=== PATIENT | female | born 1960 | race Caucasian/White ===

== ENCOUNTER 2019-11-27 09:33 | Outpatient (CLI) | payer BC, SELFPAY ==
--- NOTE | 2019-11-27 11:00 | NEURO_ITS ---
Patient Number: [id number] Impression: # Complains of right 4th and 5th finger numbness particularly during sleep. # No Carpal Tunnel Syndrome. # Mild slowing of ulnar nerve across the elbow. # Normal needle/EMG exam. # Clinical correlation recommended. Nerve Conduction Studies Anti Sensory Summary Table Stim Site NR Peak (ms) P-T Amp (?V) Site1 Site2 Delta-P (ms) Dist (cm) Tra (m/s) Left Median Anti Sensory (2-3nd Digit) Wrist 3.2 62.8 Wrist 2-3nd Digit 3.2 14.0 44 Wrist 3.2 60.0 Wrist 2-3nd Digit 3.2 14.0 44 Right Median Anti Sensory (2-3nd Digit) Wrist 3.0 47.8 Wrist 2-3nd Digit 3.0 14.0 47 Wrist 3.2 51.3 Wrist 2-3nd Digit 3.0 14.0 47 Left Radial Anti Sensory (Base 1st Digit) Wrist 2.0 25.6 Wrist Base 1st Digit 2.0 0.0 Right Radial Anti Sensory (Base 1st Digit) Wrist 2.0 23.7 Wrist Base 1st Digit 2.0 0.0 Left Ulnar Anti Sensory (5th Digit) Wrist 2.4 30.9 Wrist 5th Digit 2.4 14.0 58 Right Ulnar Anti Sensory (5th Digit) Wrist 2.5 43.9 Wrist 5th Digit 2.5 14.0 56 Motor Summary Table Stim Site NR Onset (ms) O-P Amp (mV) Site1 Site2 Delta-0 (ms) Dist (cm) Tra (m/s) Left Median Motor (Abd Poll Brev) Wrist 3.1 5.4 Elbow Wrist 4.7 28.0 60 Elbow 7.8 4.9 Right Median Motor (Abd Poll Brev) Wrist 3.1 4.6 Elbow Wrist 4.6 27.0 59 Elbow 7.7 4.1 Left Ulnar Motor (Abd Dig Minimi) Wrist 2.3 5.1 A Elbow Wrist 5.2 28.0 54 A Elbow 7.5 4.8 Right Ulnar Motor (Abd Dig Minimi) Wrist 2.3 5.2 A Elbow Wrist 5.3 30.0 57 A Elbow 7.6 4.5 F Wave Studies NR F-Lat (ms) L-R F-Lat (ms) Left Median (Mrkrs) (Abd Poll Brev) 26.84 0.00 Right Median (Mrkrs) (Abd Poll Brev) 26.84 0.00 Left Ulnar (Mrkrs) (Abd Dig Min) 27.30 0.54 Right Ulnar (Mrkrs) (Abd Dig Min) 27.84 0.54 EMG Side Muscle Nerve Root Ins Act Fibs Amp Dur Recrt Comment Right 1stDorInt Ulnar C8-T1 Nml Nml Nml Nml Nml Right Ext Indicis Radial (Post Int) C7-8 Nml Nml Nml Nml Nml Right Ext Digitorum Radial (Post Int) C7-8 Nml Nml Nml Nml Nml Right BrachioRad Radial C5-6 Nml Nml Nml Nml Nml Right PronatorTeres Median C6-7 Nml Nml Nml Nml Nml Right Abd Poll Brev Median C8-T1 Nml Nml Nml Nml Nml Left 1stDorInt Ulnar C8-T1 Nml Nml Nml Nml Nml Left Ext Indicis Radial (Post Int) C7-8 Nml Nml Nml Nml Nml Left Ext Digitorum Radial (Post Int) C7-8 Nml Nml Nml Nml Nml Left BrachioRad Radial C5-6 Nml Nml Nml Nml Nml Left PronatorTeres Median C6-7 Nml Nml Nml Nml Nml Left Abd Poll Brev Median C8-T1 Nml Nml Nml Nml Nml Right ABD Dig Min Ulnar C8-T1 Nml Nml Nml Nml Nml Left ABD Dig Min Ulnar C8-T1 Nml Nml Nml Nml Nml MTDD
== END 2019-11-27 09:34 | disposition home or self-care (01) ==
PROVIDERS: PCP Family Medicine; Visit Provider Surgery Plastic and Reconstructive Surgery
DX: R20.0 Anesthesia of skin (principal)
CPT/HCPCS: 95886; 95911

== ENCOUNTER 2020-03-04 00:59 | Outpatient (CLI) | payer BC, SELFPAY ==
[2020-03-04 19:19] LABS: SARS-CoV-2 RNA PCR Negative
== END 2020-03-04 01:00 | disposition home or self-care (01) ==
LOC: ANHCOVIDDT 01:00
PROVIDERS: PCP Family Medicine; Visit Provider Internal Medicine Gastroenterology
DX: Z01.812 Encounter for preprocedural laboratory examination (principal); Z11.59 Encounter for screening for other viral diseases
CPT/HCPCS: 87635; C9803; U0003

== ENCOUNTER 2020-03-06 02:16 | Day surgery (SDC) | payer BC, SELFPAY ==
[2020-02-26 11:07] VITALS: BMI 28.7
--- NOTE | 2020-03-06 08:24 | WPDANESEPPF ---
Anes - Initial Pre Proc Eval Procedure: Operation Date: 03/06/20 09:30 Proposed Procedures p Screening Colonoscopy - Janusz Corbin MD Date/Time: 03/06/20 08:24 Surgeon: Janusz Corbin MD Pre Op Diagnosis: Neoplasm Screening Patient Data Age: 59 Gender: F Height: 1.69 m Weight: 82 kg Allergies Allergy/AdvReac Type Severity Reaction Status Date / Time Sulfa (Sulfonamide Allergy Unknown Other Verified 03/06/20 08:41 Antibiotics) ERYTHROMYCIN AdvReac Nausea and Uncoded 03/06/20 08:41 Vomiting Home Medications Medication Instructions Recorded Confirmed Type esomeprazole magnesium 20 mg 20 mg PO DAILY 09/09/19 02/26/20 History capsule,delayed release multivitamin-minerals no.55 1 tablet PO DAILY 09/09/19 02/26/20 History psyllium husk 0.4 gram capsule 0.8 gm PO DAILY 09/09/19 02/26/20 History atorvastatin 10 mg tablet 10 mg PO DAILY #90 tablet 12/02/19 02/26/20 Rx piroxicam 20 mg capsule 20 mg PO DAILY #90 cap 01/17/20 02/26/20 Rx calcium carbonate-vitamin D3 1 tablet PO BID 02/26/20 02/26/20 History [Calcium 500 + D] gabapentin 600 mg PO HS 02/26/20 02/26/20 History Patient hx anesthesia problems: none Family hx anesthesia problems: none PMFSH Past Medical History Medical History (Updated 03/06/20 @ 08:26 by Mika Hart MD) Arthritis Gastroesophageal reflux disease Hypercholesterolemia Osteopenia Overweight (BMI 25.0-29.9) Pinched nerve Surgical History Surgical History (Updated 09/09/19 @ 11:35 by Anny Kinney CMA) History of hysterectomy History of knee surgery Hx of tonsillectomy Family History Family History (Updated 09/09/19 @ 11:36 by Anny Kinney CMA) Father Heart attack Diabetes mellitus Mother Diabetes mellitus Grandparent Glaucoma Social History Social History Smoking status: Never smoker Anes - Eval Final PreProcedure Day of Procedure 03/06/20 08:24 Patient weight: overweight Heart: regular rate and rhythm Lungs: clear to auscultation and normal air movement Airway: Mallampati scale class II Neurological: alert and oriented Last oral intake: >/= 8 hours ASA classification: II Emergent: no Anesthetic plan: proceed Anesthesia type and monitoring: general GIVS Informed Consent: The patient's anesthetic plan and its attendant risks and benefits were discussed with the patient/family/POA. Questions were solicited and answers provided to the satisfaction of the patient/family/POA.
[2020-03-06 08:43] VITALS: BP 135/77; PULSE 79; RESP 22; TEMP 37.2; O2SAT 99; BMI 27.9
[2020-03-06] MEDS: LACTATED RINGERS 1,000 ML 150 ML IV CONT (08:51)
--- NOTE | 2020-03-06 09:14 | WPDGICN ---
Assessment and Plan Assessment and plan (1) History of colon polyps: Code(s): Z86.010 - Personal history of colonic polyps Status: Acute Assessment and Plan: patient has had colon polyps in the past. Plan is for surveillance colonoscopy now and at 5 year intervals. (2) Family history of colonic polyps: Code(s): Z83.71 - Family history of colonic polyps Status: Acute Assessment and Plan: There is a strong family history of colon polyps both in the patient her father her brother. Her grandmother had colon cancer. Continue surveillance colonoscopy at least every 5 year intervals is strongly advised. GI Consult Note Consult date/time: 03/06/20 09:14 HPI: Caren Hidalgo is a 59 year old female seen in evaluation at the request of Dr Valentin Cole. Patient presents for screening colonoscopy. Patient's history is significant that she has had colon polyps in the past. Additionally her brother father have had colon polyps her paternal grand mother also had colon cancer. Patient states her current weight appetite bowel movements are normal. She denies abdominal pain. She has had no blood in her stools. Her weight has remained stable. She presents today for screening colonoscopy. Review of Systems Review of Systems: All systems reviewed & are unremarkable except as noted in HPI and below PMFSH Past Medical History Medical History Arthritis Gastroesophageal reflux disease Hypercholesterolemia Osteopenia Overweight (BMI 25.0-29.9) Pinched nerve Surgical History Surgical History History of hysterectomy History of knee surgery Hx of tonsillectomy Family History Family History Father Heart attack Diabetes mellitus Mother Diabetes mellitus Grandparent Glaucoma Social History Social History Smoking status: Never smoker Meds Home Medications and Allergies Home Medications Medication Instructions Recorded Confirmed Type esomeprazole magnesium 20 mg 20 mg PO DAILY 09/09/19 02/26/20 History capsule,delayed release multivitamin-minerals no.55 1 tablet PO DAILY 09/09/19 02/26/20 History psyllium husk 0.4 gram capsule 0.8 gm PO DAILY 09/09/19 02/26/20 History atorvastatin 10 mg tablet 10 mg PO DAILY #90 tablet 12/02/19 02/26/20 Rx piroxicam 20 mg capsule 20 mg PO DAILY #90 cap 01/17/20 02/26/20 Rx calcium carbonate-vitamin D3 1 tablet PO BID 02/26/20 02/26/20 History [Calcium 500 + D] gabapentin 600 mg PO HS 02/26/20 02/26/20 History Allergies Allergy/AdvReac Type Severity Reaction Status Date / Time Sulfa (Sulfonamide Allergy Unknown Other Verified 03/06/20 08:41 Antibiotics) ERYTHROMYCIN AdvReac Nausea and Uncoded 03/06/20 08:41 Vomiting Vital Signs Vital Signs - 24 hr 03/06/20 08:43 Temperature 99 F Pulse Rate 79 Respiratory Rate 22 H Blood Pressure 135/77 Pulse Oximetry 99 Exam Narrative: Exam Narrative: Physical exam reveals patient to be alert. Vital signs stable. HEENT exam unremarkable. Lungs are clear to auscultation and percussion. Heart is without murmur or extra sounds. Abdominal exam bowel sounds are present soft nontender with no organomegaly. Digital external rectal exam is normal.
[2020-03-06 09:50] VITALS: BP 96/53; PULSE 76; RESP 25; O2SAT 95
[2020-03-06 10:00] VITALS: BP 104/60; PULSE 71; RESP 21; O2SAT 97
[2020-03-06 10:10] VITALS: BP 115/63; PULSE 70; RESP 19; O2SAT 96
== END 2020-03-06 10:25 | disposition home or self-care (01) ==
PROVIDERS: PCP Family Medicine; Visit Provider Internal Medicine Gastroenterology
PROC: 0DJD8ZZ Inspection of Lower Intestinal Tract, Via Natural or Artificial Opening Endoscopic (ICD-10-PCS; CPT 45378; principal; 2020-03-06 09:30)
DX: Z12.11 Encounter for screening for malignant neoplasm of colon (principal); D12.2 Benign neoplasm of ascending colon; K64.8 Other hemorrhoids; Z83.71 Family history of colonic polyps; Z80.0 Family history of malignant neoplasm of digestive organs; E78.00 Pure hypercholesterolemia, unspecified; K21.9 Gastro-esophageal reflux disease without esophagitis
CPT/HCPCS: 45385; 88305; J2704; J7120

== ENCOUNTER 2020-03-30 12:25 | Outpatient (CLI) | payer BC, SELFPAY ==
--- NOTE | ~2020-03-30 | XR_ITS ---
EXAMINATION: XR foot LT min 3V DATE: 03/30/2020 12:49 INDICATION: Stubbed left fifth toe one week prior TECHNIQUE: Dorsoplantar, two oblique and lateral views of the left foot were obtained. COMPARISON: None. FINDINGS: Alignment is normal. Subtle oblique linear lucency extending across the proximal metadiaphyseal regio n of the left fifth proximal phalanx consistent with nondisplaced extra-articular fracture. No other fractures identified. Joint spaces are relatively preserved. Soft tissue swelling about the base of t he fifth toe. IMPRESSION: 1. Nondisplaced extra articular fracture at the base of the left fifth proximal phalanx. Reviewed, dictated and finalized at location A.
== END 2020-03-30 12:26 | disposition home or self-care (01) ==
PROVIDERS: PCP Family Medicine; Visit Provider Family Medicine
DX: M79.672 Pain in left foot (principal); S92.515A Nondisplaced fracture of proximal phalanx of left lesser toe(s), initial encounter for closed fracture
CPT/HCPCS: 73630

== ENCOUNTER → 2020-08-12 11:27 | Outpatient (CLI) | payer BC, SELFPAY ==
--- NOTE | ~2020-08-12 | DEXA_ITS ---
Bone Density Report Name: Caren Hidalgo Age: 59 Sex: Female Ethnicity: White Date of : 1960 Indication: postmenopausal; screening for osteoporosis; prior fracture; hysterectomy; Referring Provider: Speedy Lopez Study: Bone densitometry was performed. Exam Date: August 12, 2020 Accession number: [id number] Bone Density: Region BMD T-score Z-score Classification AP Spine (L1-L4) 0.933 -1.0 0.4 Normal Femoral Neck (Left) 0.717 -1.2 0.1 Osteopenia Total Hip (Left) 0.890 -0.4 0.6 Normal Femoral Neck (Right) 0.704 -1.3 0.0 Osteopenia Total Hip (Right) 0.828 -0.9 0.1 Normal Total Hip Mean 0.859 -0.7 0.4 Normal World Health Organization criteria for BMD impression classify patients as: Normal (T-score at or above -1.0), Osteopenia (T-score between -1.0 and -2.5), or Osteoporosis (T-score at or below -2.5). 10-year Fracture Risk: FRAX not reported because: Prior hip or vertebral fracture Clinical Information Provided by Patient: Have had a previous hip or vertebral fracture Has had a low trauma fracture Has used the following medications: Vitamin D, Calcium Has the following medical conditions: Hysterectomy Patient maximum height was 66.75 Menopause Age: 56 No regular weight bearing exercise Onset of menses at age 13 Number of children 2 Impression: The patient has low bone mass, based on the Right Femoral Neck T-score. The patient has risk factors, including: previous fracture. Discussion: INCREASED RISK OF FRACTURE DUE TO HISTORY OF FRACTURE. The patient's previous fracture puts the patient at high risk of a future fracture. In untreated patients, the risk of osteoporotic fracture increases approximately two-fold for each 1.0 SD decrease in T-score. Low bone density is not the only risk factor for fracture; also consider factors such as patient's age, frailty or poor health, risk of falling, risk of injury, previous osteoporotic fracture, family history of osteoporosis, cigarette smoking, low body weight, etc. Not everyone with a low trauma fracture has osteoporosis; osteomalacia and other metabolic bone disorders should also be considered. Patients who have osteoporosis should be evaluated for specific diseases and conditions (secondary causes) that may cause or contribute to bone loss and fracture risk. National Osteoporosis Foundation (NOF) recommends pharmacologic intervention for patients with a prior hip or vertebral fracture regardless of BMD T-score. The patient should follow a healthful lifestyle (good nutrition with adequate calcium and vitamin D, and appropriate weight-bearing exercise). Follow-Up: Consider a repeat BMD and Vertebral Fracture Assessment (VFA) exam in 2 years or sooner if medically necessary, to reassess this patient's status. Reported by: [facility] on 08/12/2020 11:51:00 AM.
== END ==
PROVIDERS: PCP Family Medicine; Visit Provider Physician Assistant
DX: M85.89 Other specified disorders of bone density and structure, multiple sites (principal)
CPT/HCPCS: 77080

== ENCOUNTER → 2020-09-24 09:48 | Outpatient (CLI) | payer BC, SELFPAY ==
--- NOTE | ~2020-09-24 | CT_ITS ---
EXAMINATION: CT abdomen pelvis wo con DATE: 09/24/2020 10:05 INDICATION: Right lower quadrant pain TECHNIQUE: Computed tomography (CT) of the abdomen and pelvis was performed without intravenous contr ast. The dose-length product (DLP) was 474.92 mGy-cm. Automated exposure control and iterative recons truction technique were employed. COMPARISON: 12/23/2011 FINDINGS: The lung bases are clear. The heart size is normal. The liver, spleen, pancreas, gallbladde r, and adrenal glands are normal. There are punctate nonobstructing stones in the right kidney. The l eft kidney is unremarkable. No stones are present in the ureters or bladder. There is no hydronephros is or hydroureter. No pathologically enlarged abdominal or pelvic lymph nodes are identified. There i s no free intraperitoneal gas or evidence of bowel obstruction. The nondilated appendix is filled wit h appendicoliths. There is no periappendiceal fat stranding. Severe lumbar spondylosis is noted. Ther e is a tiny fat-containing umbilical hernia. A moderate volume of colonic stool is present. IMPRESSION: 1. No CT correlate for the patient's symptoms. 2. Appendix filled with appendicoliths but not dilated and no periappendiceal fat stranding. Reviewed, dictated and finalized at location A. 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 No CT correlate for the patient's symptoms. 2. Appendix filled with appendicoliths but not dilated and no periappendiceal f at stranding.
== END ==
PROVIDERS: PCP Internal Medicine; Visit Provider Internal Medicine
DX: R10.31 Right lower quadrant pain (principal)
CPT/HCPCS: 74176

== ENCOUNTER → 2020-11-24 15:21 | Outpatient (CLI) | payer BC, SELFPAY ==
--- NOTE | ~2020-11-24 | US_ITS ---
EXAMINATION: US pelvic complete w TV DATE: 11/24/2020 15:50 INDICATION: Pelvic and perineal pain Comparison:No prior studies for comparison. TECHNIQUE: Multiple transabdominal and endovaginal sonographic images of the pelvis performed. FINDINGS: The uterus is surgically absent. The right ovary is not visualized. Left ovary is atrophic measuring 1.9 x 1.4 x 1.5 cm. There is no free fluid in the pelvis. There are no abnormal masses seen on either side. IMPRESSION: 1. Unremarkable pelvic ultrasound post hysterectomy. Reviewed, dictated and finalized at location A.
== END ==
PROVIDERS: Visit Provider Student in an Organized Health Care Education/Training Program
DX: R10.2 Pelvic and perineal pain (principal)
CPT/HCPCS: 76830; 76856

== ENCOUNTER → 2021-06-30 01:43 | Outpatient (CLI) | payer BC, SELFPAY ==
[2021-06-30 18:14] LABS: SARS-CoV-2 RNA PCR Negative
== END ==
PROVIDERS: PCP Internal Medicine; Visit Provider Internal Medicine
DX: Z20.822 Contact with and (suspected) exposure to COVID-19 (principal)
CPT/HCPCS: C9803; U0003; U0005

== ENCOUNTER 2021-07-23 15:30 | Outpatient (CLI) | payer BC, SELFPAY ==
--- NOTE | ~2021-07-23 | MR_ITS ---
EXAMINATION: MR lumbar spine wo con DATE: 07/23/2021 16:28 INDICATION: Low back pain. TECHNIQUE: Magnetic resonance imaging (MRI) of the lumbar spine was performed without intravenous con trast. Sequences included sagittal T2-weighted FSE, sagittal T2-weighted FS FSE, sagittal T1-weighted FSE, and axial T2-weighted FSE. COMPARISON: Lumbar spine MRI 11/08/2018 FINDINGS: There is 6 degrees dextrocurvature of thoracic lumbar spine. Vertebral body heights are nor mal. There is severely decreased disc height at L4-L5 and L5-S1 with endplate remodeling. The distal spinal cord signal intensity is normal. The conus medullaris is at L1-L2. The following disc levels a re specifically discussed: L1-L2: The disc does not extend beyond the endplate margin. There is mild bilateral facet joint osteo arthritis. There is no neural foraminal stenosis. There is no central canal stenosis. L2-L3: The disc is mildly bulging. There is mild bilateral facet joint osteoarthritis. There is mild right neural foraminal stenosis. There is mild central canal stenosis. L3-L4: The disc is mildly bulging. There is moderate bilateral facet joint osteoarthritis. There is m ild right neural foraminal stenosis. There is no central canal stenosis. L4-L5: The disc is bulging and has an annular fissure. There is mild bilateral facet joint osteoarthr itis. There is mild bilateral neural foraminal stenosis. There is mild central canal stenosis. L5-S1: The disc is bulging and has an annular fissure. There is severe bilateral facet joint osteoart hritis. There is moderate bilateral neural foraminal stenosis. There is mild central canal stenosis. IMPRESSION: 1. Severe lower lumbar spondylosis, stable from 11/08/2018. Reviewed, dictated and finalized at location A. 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
== END 2021-07-23 15:31 | disposition home or self-care (01) ==
PROVIDERS: PCP Internal Medicine
DX: M54.50 Low back pain, unspecified (principal); M48.062 Spinal stenosis, lumbar region with neurogenic claudication; M47.816 Spondylosis without myelopathy or radiculopathy, lumbar region
CPT/HCPCS: 72148

== ENCOUNTER 2021-08-12 01:33 | Day surgery (SDC) | payer BC, SELFPAY ==
[2021-07-29 13:44] VITALS: BMI 24.5
[2021-08-12 07:54] VITALS: BP 119/57; PULSE 97; RESP 18; TEMP 36.2; O2SAT 98; BMI 24.6
[2021-08-12] MEDS: LACTATED RINGERS 1,000 ML 150 ML IV CONT (08:05)
--- NOTE | 2021-08-12 08:26 | WPDANESEPPF ---
Anes - Initial Pre Proc Eval Procedure: Operation Date: 08/12/21 09:00 Proposed Procedures p Screening Colonoscopy - Janusz Corbin MD Date/Time: 08/12/21 08:26 Surgeon: Janusz Corbin MD Pre Op Diagnosis: hx of colon polyps Patient Data Age: 60 Gender: F Height: 1.68 m Weight: 69.3 kg Last Vital Signs Temp 97.2 F L 08/12/21 07:54 Pulse 97 08/12/21 07:54 Resp 18 08/12/21 07:54 BP 119/57 L 08/12/21 07:54 Pulse Ox 98 08/12/21 07:54 Allergies Allergy/AdvReac Type Severity Reaction Status Date / Time Sulfa (Sulfonamide Allergy Unknown Other Verified 08/12/21 07:53 Antibiotics) ERYTHROMYCIN AdvReac Nausea and Uncoded 07/29/21 13:40 Vomiting Home Medications Medication Instructions Recorded Confirmed Type esomeprazole magnesium 20 mg 20 mg PO DAILY 09/09/19 07/29/21 History capsule,delayed release multivitamin-minerals no.55 1 tablet PO DAILY 09/09/19 07/29/21 History calcium carbonate-vitamin D3 1 tablet PO BID 02/26/20 07/29/21 History [Calcium 500 + D] gabapentin 300 mg PO HS 02/26/20 07/29/21 History alendronate 70 mg tablet 70 mg PO WEEKLY tablet 06/28/21 07/29/21 History atorvastatin 10 mg tablet 10 mg PO DAILY #90 tablet 06/28/21 07/29/21 Rx scopolamine base 1 mg over 3 days 1 patch TRANSDERMAL Q3D PRN #10 ea 06/28/21 07/29/21 Rx transdermal patch piroxicam [Feldene] 20 mg PO DAILY 07/29/21 07/29/21 History Patient hx anesthesia problems: post op nausea/vomiting Family hx anesthesia problems: none Results Review: All pre-operative results and documents have been reviewed as part of the pre-operative evaluation. [facility] Past Medical History Medical History (Updated 07/12/21 @ 10:39 by Cristofer Anderson) Arthritis Blurry vision Body mass index [BMI] 29.0-29.9, adult (08/06/18) Contact dermatitis and eczema Eczema Gastroesophageal reflux disease Gastroesophageal reflux disease without esophagitis History of skin cancer Hypercholesterolemia Insomnia, unspecified Irritable bowel syndrome without diarrhea Menopausal and female climacteric states Mixed hyperlipidemia Osteoarthrosis, unspecified whether generalized or localized, forearm Osteopenia Overweight (BMI 25.0-29.9) Pinched nerve Splinter of finger Stress incontinence (female) (male) Upper respiratory tract infection Viral syndrome Surgical History Surgical History H/O wisdom tooth extraction History of hysterectomy History of knee surgery Hx of tonsillectomy Family History Family History Father Heart attack Diabetes mellitus Hypertension Heart disease Mother Diabetes mellitus Grandparent Glaucoma Carcinoma of colon Throat cancer Sibling Heart disease Hypertension Other Breast cancer Social History Social History (Updated 06/28/21 @ 10:48 by Batsheva Sauer CNA) Smoking status: Never smoker Second hand tobacco smoke exposure: No Alcohol intake: current Drinks per week: 2 Substance use: never Substance use type: does not use Living arrangements: with family Spiritual care concerns: No Anes - Eval Final PreProcedure Day of Procedure 08/12/21 08:26 Patient weight: normal Heart: regular rate and rhythm Lungs: clear to auscultation Airway: Mallampati scale class II Neurological: alert and oriented Last oral intake: >/= 8 hours ASA classification: II Emergent: no Anesthetic plan: proceed Anesthesia type and monitoring: general GIVS and standard monitoring Results Review: All pre-operative results and documents have been reviewed as part of the pre-operative evaluation. Informed Consent: The patient's anesthetic plan and its attendant risks and benefits were discussed with the patient/family/POA. Questions were solicited and answers provided to the satisfaction of the patient/family/POA.
--- NOTE | 2021-08-12 08:28 | WPDGICN ---
Assessment and Plan Assessment and plan (1) History of colon polyps: Code(s): Z86.010 - Personal history of colonic polyps Status: Acute Assessment and Plan: Patient has a history of a very large ascending colon polyp removed piecemeal fashion 2019. Plan is for surveillance colonoscopy now. In that intervals in the future. (2) Family history of colonic polyps: Code(s): Z83.71 - Family history of colonic polyps Status: Acute Assessment and Plan: Family history is significant for colon polyps and cancer within the family. Surveillance colonoscopy should be performed at intervals of at least every 5 years. GI Consult Note Consult date/time: 08/12/21 08:28 HPI: Caren Hidalgo is a 60 year old female Presents for screening colonoscopy. Patient's current weight appetite bowel movements are normal. She denies any blood in her stools. Her past history is significant for a very large ascending colon polyp removed 1 year ago. Family history is significant for both polyps and cancer within the family. Patient presents today for follow-up colonoscopy. Review of Systems Review of Systems: All systems reviewed & are unremarkable except as noted in HPI and below PMFSH Past Medical History Medical History (Updated 07/12/21 @ 10:39 by Cristofer Anderson) Arthritis Blurry vision Body mass index [BMI] 29.0-29.9, adult (08/06/18) Contact dermatitis and eczema Eczema Gastroesophageal reflux disease Gastroesophageal reflux disease without esophagitis History of skin cancer Hypercholesterolemia Insomnia, unspecified Irritable bowel syndrome without diarrhea Menopausal and female climacteric states Mixed hyperlipidemia Osteoarthrosis, unspecified whether generalized or localized, forearm Osteopenia Overweight (BMI 25.0-29.9) Pinched nerve Splinter of finger Stress incontinence (female) (male) Upper respiratory tract infection Viral syndrome Surgical History Surgical History H/O wisdom tooth extraction History of hysterectomy History of knee surgery Hx of tonsillectomy Family History Family History Father Heart attack Diabetes mellitus Hypertension Heart disease Mother Diabetes mellitus Grandparent Glaucoma Carcinoma of colon Throat cancer Sibling Heart disease Hypertension Other Breast cancer Social History Social History (Updated 06/28/21 @ 10:48 by Batsheva Sauer CNA) Smoking status: Never smoker Second hand tobacco smoke exposure: No Alcohol intake: current Drinks per week: 2 Substance use: never Substance use type: does not use Living arrangements: with family Spiritual care concerns: No Meds Home Medications and Allergies Home Medications Medication Instructions Recorded Confirmed Type esomeprazole magnesium 20 mg 20 mg PO DAILY 09/09/19 07/29/21 History capsule,delayed release multivitamin-minerals no.55 1 tablet PO DAILY 09/09/19 07/29/21 History calcium carbonate-vitamin D3 1 tablet PO BID 02/26/20 07/29/21 History [Calcium 500 + D] gabapentin 300 mg PO HS 02/26/20 07/29/21 History alendronate 70 mg tablet 70 mg PO WEEKLY tablet 06/28/21 07/29/21 History atorvastatin 10 mg tablet 10 mg PO DAILY #90 tablet 06/28/21 07/29/21 Rx scopolamine base 1 mg over 3 days 1 patch TRANSDERMAL Q3D PRN #10 ea 06/28/21 07/29/21 Rx transdermal patch piroxicam [Feldene] 20 mg PO DAILY 07/29/21 07/29/21 History Allergies Allergy/AdvReac Type Severity Reaction Status Date / Time Sulfa (Sulfonamide Allergy Unknown Other Verified 08/12/21 07:53 Antibiotics) ERYTHROMYCIN AdvReac Nausea and Uncoded 07/29/21 13:40 Vomiting Vital Signs Vital Signs - 24 hr 08/12/21 07:54 Temperature 97.2 F L Pulse Rate 97 Respiratory Rate 18 Blood Pressure 119/57 L Pulse Oximetry 98 Exam Narrative: Physic
[2021-08-12] MEDS: ONDANSETRON INJ 4 MG/2 ML VIAL IV PUSH (08:39)
[2021-08-12 09:42] VITALS: BP 105/63; PULSE 89; RESP 24; O2SAT 100
[2021-08-12 09:52] VITALS: BP 107/71; PULSE 76; RESP 22; O2SAT 100
[2021-08-12 10:02] VITALS: BP 123/67; PULSE 76; RESP 19; O2SAT 100
== END 2021-08-12 10:09 | disposition home or self-care (01) ==
PROVIDERS: PCP Internal Medicine; Visit Provider Internal Medicine Gastroenterology
PROC: 0DJD8ZZ Inspection of Lower Intestinal Tract, Via Natural or Artificial Opening Endoscopic (ICD-10-PCS; CPT 45378; principal; 2021-08-12 09:00)
DX: Z12.11 Encounter for screening for malignant neoplasm of colon (principal); K64.9 Unspecified hemorrhoids; Z86.010 Personal history of colon polyps; Z83.71 Family history of colonic polyps; K21.9 Gastro-esophageal reflux disease without esophagitis; E78.00 Pure hypercholesterolemia, unspecified; K58.9 Irritable bowel syndrome, unspecified; E78.2 Mixed hyperlipidemia; N39.3 Stress incontinence (female) (male)
CPT/HCPCS: 45378; J2405; J2704; J7120

== ENCOUNTER → 2023-03-15 10:38 | Outpatient (CLI) | payer BC, SELFPAY ==
--- NOTE | ~2023-03-15 | DEXA_ITS ---
Bone Density Report Name: SUSIE DANG Age: 62 Sex: Female Ethnicity: White Date of : 1960 Indication: postmenopausal; screening for osteoporosis; prior fracture; hysterectomy; Referring Provider: GOSIA, MILADYS Study: Bone densitometry was performed. Exam Date: March 15, 2023 Accession number: [id number] Bone Density: Region BMD T-score Z-score Classification AP Spine (L1-L4) 0.964 -0.8 0.9 Normal Femoral Neck (Left) 0.696 -1.4 0.1 Osteopenia Total Hip (Left) 0.928 -0.1 1.0 Normal Femoral Neck (Right) 0.714 -1.2 0.2 Osteopenia Total Hip (Right) 0.868 -0.6 0.5 Normal Total Hip Mean 0.898 -0.4 0.8 Normal World Health Organization criteria for BMD impression classify patients as: Normal (T-score at or above -1.0), Osteopenia (T-score between -1.0 and -2.5), or Osteoporosis (T-score at or below -2.5). 10-year Fracture Risk: FRAX not reported because: Prior hip or vertebral fracture Previous Exams: Region Exam Age BMD T-score BMD Change BMD Change Date g/cm2 vs Baseline vs Previous AP Spine(L1-L4) 03/15/2023 62 0.964 -0.8 0.031* 0.031* 08/12/2020 59 0.933 -1.0 Total Hip(Left) 03/15/2023 62 0.928 -0.1 0.039* 0.039* 08/12/2020 59 0.890 -0.4 Total Hip(Right) 03/15/2023 62 0.868 -0.6 0.040* 0.040* 08/12/2020 59 0.828 -0.9 *Denotes significance at 95% confidence level, LSC for AP Spine = 0.022 g/cm2, LSC for Total Hip = 0.027 g/cm2 Clinical Information Provided by Patient: Have had a previous hip or vertebral fracture Has had a low trauma fracture Has used the following medications: Fosamax (i.e. alendronate), Vitamin D, Calcium Has the following medical conditions: Hysterectomy Patient maximum height was 66.75 Menopause Age: 56 Onset of menses at age 13 Number of children 2 Impression: The patient has low bone mass, based on the Left Femoral Neck T-score. The patient has risk factors, including: previous fracture. No significant bone loss was observed. Discussion: INCREASED RISK OF FRACTURE DUE TO HISTORY OF FRACTURE. The patient's previous fracture puts the patient at high risk of a future fracture. In untreated patients, the risk of osteoporotic fracture increases approximately two-fold for each 1.0 SD decrease in T-score. Low bone density is not the only risk factor for fracture; also consider factors such as patient's age, frailty or poor health, risk of falli
== END ==
PROVIDERS: PCP Obstetrics & Gynecology; Visit Provider Obstetrics & Gynecology
DX: Z78.0 Asymptomatic menopausal state (principal); M85.852 Other specified disorders of bone density and structure, left thigh; M85.851 Other specified disorders of bone density and structure, right thigh
CPT/HCPCS: 77080

== ENCOUNTER → 2023-05-02 11:37 | Outpatient (CLI) | payer BC, SELFPAY ==
--- NOTE | ~2023-05-02 | XR_ITS ---
EXAM: XR sacrum coccyx min 2V DATE: 05/02/2023 11:56 HISTORY: Sacroiliitis, not elsewhere classified . COMPARISON: None available. FINDINGS: Mildly decreased mineralization. No fracture or dislocation. No lytic or blastic lesion. J oint mild degenerative change in the bilateral SI joints, bilateral hips and pubic symphysis. Severe lumbar degenerative disc disease No erosion or periosteal change. Soft tissues within normal limits. IMPRESSION: Mild bilateral degenerative change in the SI joints. Severe lumbar degenerative disc dise ase. Reviewed, dictated and finalized at location K. IMPRESSION: Mild bilateral degenerative change in the SI joints. Severe lumbar degenerative disc disease.
== END ==
PROVIDERS: PCP Anesthesiology Pain Medicine; Visit Provider Anesthesiology Pain Medicine
DX: M46.1 Sacroiliitis, not elsewhere classified (principal); M51.36 Other intervertebral disc degeneration, lumbar region
CPT/HCPCS: 72220

== ENCOUNTER 2023-05-18 08:55 | Outpatient (CLI) | payer BC, SELFPAY ==
--- NOTE | ~2023-05-18 | MR_ITS ---
EXAMINATION: MR pelvis wo con DATE: 05/18/2023 09:44 INDICATION: Sacroiliitis. Low back pain. TECHNIQUE: Magnetic resonance imaging (MRI) of the pelvis was performed without intravenous contrast. COMPARISON: Sacrum and coccyx radiographs 05/02/2023 FINDINGS: Bone alignment is normal. No fracture. There is severe lumbar spondylosis. There is mild osteoarthrit is of the sacroiliac joints. IMPRESSION: 1. Mild osteoarthritis of the sacroiliac joints. 2. Severe lumbar spondylosis. Reviewed, dictated and finalized at location A.
== END 2023-05-18 08:56 ==
LOC: MICIMG 08:57
PROVIDERS: PCP Student in an Organized Health Care Education/Training Program; Visit Provider Anesthesiology Pain Medicine
DX: M46.1 Sacroiliitis, not elsewhere classified (principal); M47.816 Spondylosis without myelopathy or radiculopathy, lumbar region; M47.818 Spondylosis without myelopathy or radiculopathy, sacral and sacrococcygeal region
CPT/HCPCS: 72195

== ENCOUNTER 2023-12-13 12:15 | Emergency (ER) | payer BC, SELFPAY ==
[2023-12-13 12:24] VITALS: BP 133/75; PULSE 80; RESP 16; TEMP 36.5; O2SAT 99
[2023-12-13 12:28] VITALS: BP 133/75; PULSE 80; RESP 16; TEMP 36.5; O2SAT 99
--- NOTE | 2023-12-13 12:41 | ED.WOUNDLAC ---
HPI - Wound/Laceration General Chief Complaint: Wound/Laceration Stated Complaint: Right Leg Laceration Time Seen by Provider: 12/13/23 12:30 Source: patient Mode of arrival: ambulatory Limitations: no limitations History of Present Illness HPI narrative: Caren is a 63-year-old female patient presenting to the clinic today with complaints of a laceration to her right lower anterior thigh. She reports she cut it on a three knife trimmer prior to arrival. Tetanus is up-to-date per patient. Did wash the wound with peroxide prior to arrival Related Data Home Medications Medication Instructions Recorded Confirmed esomeprazole magnesium 20 mg 20 mg PO DAILY 09/09/19 12/13/23 capsule,delayed release (Nexium) multivitamin-minerals no.55 1 tablet PO DAILY 09/09/19 12/13/23 (Centrum Flavor Burst Adult chewable tablet) calcium carbonate 500 mg-vitamin 1 tablet PO BID 02/26/20 12/13/23 D3 5 mcg (200 unit) tablet (Calcium 500 + D) Allergies Allergy/AdvReac Type Severity Reaction Status Date / Time Sulfa (Sulfonamide Allergy Unknown Other Verified 12/13/23 12:18 Antibiotics) ERYTHROMYCIN AdvReac Nausea and Uncoded 12/13/23 12:18 Vomiting Review of Systems Review of Systems: Pertinent positives per HPI. Patient denies any fever, chills, rash, headache, visual changes, dizziness, cough, runny nose, sore throat, shortness of breath, chest pain, palpitations, nausea, vomiting, diarrhea, constipation, abdominal pain, or any urinary issues. [facility] Past Medical History Medical History Arthritis Blurry vision Body mass index [BMI] 29.0-29.9, adult (08/06/18) Contact dermatitis and eczema Eczema Gastroesophageal reflux disease Gastroesophageal reflux disease without esophagitis History of skin cancer Hypercholesterolemia Insomnia, unspecified Irritable bowel syndrome without diarrhea Lumbar degenerative disc disease Menopausal and female climacteric states Mixed hyperlipidemia Osteoarthrosis, unspecified whether generalized or localized, forearm Osteopenia Overweight (BMI 25.0-29.9) Pinched nerve Splinter of finger Stress incontinence (female) (male) Upper respiratory tract infection Viral syndrome Surgical History Surgical History H/O wisdom tooth extraction History of hysterectomy History of knee surgery Hx of tonsillectomy Family History Family History Father Heart attack Diabetes mellitus Hypertension Heart disease Mother Diabetes mellitus Grandparent Glaucoma Carcinoma of colon Throat cancer Sibling Heart disease Hypertension Other Breast cancer Social History Social History Smoking status: Never smoker Second hand tobacco smoke exposure: No Alcohol intake: current Alcohol use details: occasionally Substance use: never Substance use type: does not use Lack of Transportation: No Lack of Food: Never True Current Housing: I Have Housing Concerned About Future Housing: No Difficulty Paying Gas/Electric Bills: No Difficulty Paying for Meds: No Currently Unemployed: No Education: Bachelor's Degree Difficulty w/ Childcare or Family Care: No Living arrangements: with family Occupation/Education: retired Spiritual care concerns: No Comments At the time of my signature, I reviewed and agree with the nursing past medical, surgical, social, and family history. There is no relevant family history pertinent to the patient complaint. Exam Narrative: General: Well-developed, well nourished, in no apparent distress Head: Normocephalic, atraumatic. Cardio: Regular rate and rhythm, s1 and s2 normal, no murmur appreciated. Resp: Clear to auscultation bilaterally, no rhonchi, rales, wheezing or rubs. Integ
== END 2023-12-13 12:45 | disposition home or self-care (01) ==
PROVIDERS: Emergency Provider Nurse Practitioner Family; PCP Student in an Organized Health Care Education/Training Program
DX: S71.111A Laceration without foreign body, right thigh, initial encounter (principal); W29.3XXA Contact with powered garden and outdoor hand tools and machinery, initial encounter; K21.9 Gastro-esophageal reflux disease without esophagitis; E78.00 Pure hypercholesterolemia, unspecified; M51.36 Other intervertebral disc degeneration, lumbar region; E78.2 Mixed hyperlipidemia; M85.80 Other specified disorders of bone density and structure, unspecified site
CPT/HCPCS: 12001; 99212; G0463

== ENCOUNTER 2024-02-20 10:09 | Outpatient (CLI) | payer BC, SELFPAY ==
--- NOTE | ~2024-02-20 | MR_ITS ---
MRI of the cervical spine Clinical History: Myelopathy Technique: Axial T2-weighted and gradient images, and sagittal T1-weighted, T2-weighted, and STIR jazmin ges were acquired. Following intravenous administration of 15 cc MultiHance gadolinium, T1-weighted f at-sat imaging was performed in the axial and sagittal planes. Findings: There is no fracture or subluxation of the cervical spine. Vertebral bodies maintain normal height and alignment. No bone marrow signal abnormality seen. At C2-C3, C3-C4, C4-C5, there is no disc bulge or herniation. There is no spinal canal stenosis, cord compression, or neural foraminal narrowing at these levels. There is minimal facet joint hypertrophy at these levels. At C5-C6, there is mild degenerative disc narrowing with minimal disc osteophyte complex. Possible mi nimal bilateral neural foraminal narrowing. No spinal canal stenosis or cord compression. At C6-C7, there is moderate degenerative disc narrowing. No disc bulge or herniation evident. No spin al canal stenosis or cord compression. Probable mild bilateral neural foraminal narrowing. No abnormal signal seen in the spinal cord. Paravertebral soft tissues are unremarkable. No abnormal postcontrast enhancement identified. Impression: Minimal degenerative spondylosis, as above. Reviewed, dictated and finalized at location . Impression: Minimal degenerative spondylosis, as above.
--- NOTE | ~2024-02-20 | MR_ITS ---
MRI of the thoracic spine Clinical History: Myelopathy Technique: Axial T2-weighted and gradient images, and sagittal T1-weighted, T2-weighted, and STIR jazmin ges were acquired. Following intravenous administration of 15 cc MultiHance gadolinium, T1-weighted f at-sat imaging was performed in the axial and sagittal planes. Findings: No acute fracture or subluxation of the thoracic spine seen. There are chronic compression deformities versus Schmorl's nodes of the inferior endplate of T9, and superior endplate of T7, witho ut marrow edema. No subluxation evident. No bone marrow signal abnormality seen in the thoracic spine . There is focal left paracentral disc protrusion at T7-T8, which mildly flattens the ventral left side of the spinal cord at this level. No other significant disc bulge or herniation seen. No other spina l canal stenosis or cord compression identified. Neural foramina are preserved throughout the thoraci c spine. No abnormal signal seen in the spinal cord. No epidural mass or collection seen. Paravertebral soft t issues are unremarkable. No abnormal postcontrast enhancement identified. Impression: Left paracentral disc protrusion at T7-T8, which mildly flattens the ventral cord at this level. Chronic compression deformity versus chronic Schmorl's nodes of T7 and T9, as above. Reviewed, dictated and finalized at location . Impression: Left paracentral disc protrusion at T7-T8, which mildly flattens the ventral co rd at this level. Chronic compression deformity versus chronic Schmorl's nodes of T7 and T9, as a henrique.
== END 2024-02-20 10:10 ==
PROVIDERS: PCP Student in an Organized Health Care Education/Training Program; Visit Provider Psychiatry & Neurology Neurology
DX: M47.14 Other spondylosis with myelopathy, thoracic region (principal); G95.9 Disease of spinal cord, unspecified; M47.892 Other spondylosis, cervical region; M51.24 Other intervertebral disc displacement, thoracic region
CPT/HCPCS: 72156; 72157; A9577

== ENCOUNTER 2024-03-19 12:58 | Outpatient (CLI) | payer BC, SELFPAY ==
--- NOTE | ~2024-03-19 | MR_ITS ---
EXAMINATION: MR brain/brain stem wo/w con DATE: 03/19/2024 13:43 INDICATION: Dizziness. TECHNIQUE: Magnetic resonance imaging (MRI) of the brain and brainstem was performed without and with 15 mL MultiHance intravenous contrast. COMPARISON: None. FINDINGS: There is no intracranial hemorrhage, acute infarction, or abnormal intracranial mass lesion . The ventricles are normal in size. There is minimal mucosal thickening in sphenoid sinus. The inter nal auditory canals, inner ears, and tympanic cavities are normal. The mastoid air cells are normal. The orbits are normal. IMPRESSION: 1. Normal brain. Reviewed, dictated and finalized at location A. IMPRESSION: 1. Normal brain.
== END 2024-03-19 12:59 ==
PROVIDERS: PCP Student in an Organized Health Care Education/Training Program; Visit Provider Student in an Organized Health Care Education/Training Program
DX: R42 Dizziness and giddiness (principal)
CPT/HCPCS: 70553; A9577

== ENCOUNTER 2024-12-05 15:22 | Emergency (ER) | payer MEDICARE, SELFPAY ==
--- NOTE | ~2024-12-05 | XR_ITS ---
CHEST RADIOGRAPH, PA AND LATERAL CLINICAL HISTORY: dizziness . COMPARISON: 11/05/2015 TECHNIQUE: PA and lateral views of the chest. FINDINGS The cardiomediastinal silhouette is unremarkable. The lungs are clear. Visualized osseous structures and soft tissues are unremarkable. IMPRESSION: No focal infiltrate or effusion. Reviewed, dictated and finalized at location A.
--- NOTE | ~2024-12-05 | CT_ITS ---
CT brain wo con Ordering provider: Gamaliel Islas MD History: 64 years Female with . Dizziness . Comparison: None. Technique: CT of the head without contrast. Radiation reduction technique utilized. The dose-length p roduct was 605.33 mGy-cm. FINDINGS: BRAIN PARENCHYMA AND CSF SPACES: No midline shift, mass effect or hemorrhage. The brain parenchyma a nd CSF spaces are otherwise normal. VISUALIZED PARANASAL SINUSES: Bilateral ethmoid sinus disease otherwise, Well aerated. MASTOIDS: Well aerated. BONES: The bones appear intact. SOFT TISSUES: Visualized nasopharynx is normal. Superficial soft tissues are normal. IMPRESSION: No acute intracranial findings. Reviewed, dictated and finalized at location A.
--- NOTE | 2024-12-05 15:26 | ECG_ITS ---
Test Date: 2024-12-05 15:36:24 Measurements Intervals [place] Rate: 76 P: 44 NV: 148 QRS: 63 QRSD: 85 T: 44 QT: 379 QTc: 427 Interpretive Statements SINUS RHYTHM POSSIBLE LEFT ATRIAL ENLARGEMENT [-0.1mV P WAVE IN V1/V2] MINIMAL ST DEPRESSION [0.025+ mV ST DEPRESSION] No previous ECG available for comparison Electronically Signed On 12-06-2024 18:59:50 CDT by Gilda Landry
[2024-12-05 15:30] VITALS: BP 165/87; PULSE 82; RESP 16; TEMP 36.7; O2SAT 99
[2024-12-05 15:39] LABS: Basophils Absolute Auto 0.1 K/mm3 (0.0-0.1); Basophils Percent Auto 0.6 % (0.2-1.2); Eosinophils Absolute Auto 0.2 K/mm3 (0-0.3); Eosinophils Percent Auto 2.1 % (0-4.4); Hemoglobin 14.7 g/dL (12.0-15.0); Immature Granulocyte Absolute 0.05 K/mm3 (0.00-0.031); Immature Granulocyte Percent A 0.5 % (0-0.5); Lymphocytes Absolute Auto 2.61 K/mm3 (0.9-3.2); Mean Corpuscular HGB Conc 31.3 g/dl (32-36); Mean Corpuscular Hemoglobin 28.9 pg (26-34); Mean Corpuscular Volume 92.5 fl (80-100); Mean Platelet Volume 9.8 fl (7.4-10.4); Monocytes Absolute Auto 0.8 K/mm3 (0.1-0.6); Monocytes Percent Auto 7.8 % (2.6-8.5); Neutrophils Absolute Auto 6.3 K/mm3 (1.3-6.7); Platelet Count Result 256 k/mm3 (150-375); Red Blood Count 5.08 M/mm3 (4.2-5.4); White Blood Count 10.1 K/mm3 (4.5-10.0)
--- OUTSIDE RECORDS SUMMARY | 2024-12-05 15:41 | XMS_ITS ---
Author Organization [facility] [employer] [facility] ([address]) Address [address] [place] [address] Care Team Providers Care Dye Jig Operator Name Role Phone Ko Bravo Primary Care Provider Mitch Robles [phone] Allergies No Known Allergies REASON FOR VISIT Concern for sulfa allergy after eye irritation with use of sulfa eye-drop 20 years ago Medications Medication SIG (Take, Route, Frequency, Duration) Notes Start Date End Date Status Multivitamin - 1 tablet Orally Once a day Active Calcium + Vitamin D3 600-5 MG-MCG 1 tablet with a meal Orally Once a day Active Meloxicam 7.5 MG 1 tablet Orally Once a day Active Atorvastatin Calcium 10 MG 1 tablet Oral ly Once a day Active Problems Problem Type SNOMED Code ICD Code Onset Dates Problem Status W/U Status Risk Notes Problem Pain in eye (02014864) Ocular pain, unspecified eye (H57.10) Active confirmed Problem Allergy to bee venom (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) Active confirmed Vital Signs Blood pressure systolic 137 mm Hg 03/26/20 24 Blood pressure diastolic 85 mm Hg 024 Height 66 in 03/26/2024 Weight 179 lbs 03/26/2024 BMI 28.89 kg/m2 03/26/2024 Oximetry 99 % 03/26/2024 Encounters Encounter Location Date Provider Diagnosis [facility] [address] [facility] [address] [place] [address] 03/26/2024 Mitch Blackman Ocular pain, unspecified eye H57.10 and Bee allergy status Z91.030 Assessments Encounter Date Diagnosis (ICD Code) Assessment Notes Treatment Notes Treatment Clinical Notes Section Notes 03/26/2024 Ocular pain, unspecified eye (ICD-10 - H57.10) Reported scratch to the eye resulting in treatment with sulfa-containing eye drop 20 years ago. She reports taking 2 doses resulting in eye irritation and burning. She denies any other symptoms occurring including hives, swelling, SOB, or wheezing. She has avoided sulfa products since and has tolerated other abx without issue. History is not c/w an IgE-mediated hypersensitivity reaction. Continue to treat with sulfa as medically necessary 03/26/2024 Bee allergy status (ICD-10 - Z91.030) Reported LLR to the right forearm after sting to a bee. No other systemic symptoms noted. No further testing indicated at this time 03/26/2024 Other Plan Of Treatment Treatment Notes Assessment Notes Ocular pain, unspecified eye Reported sc ratch to the eye resulting in treatment with sulfa-containing eye drop 20 years ago. She reports taking 2 doses resulting in eye irritation and burning. She denies any other symptoms occurring including hives, swelling, SOB, or wheezing. She has avoided sulfa products since and has tolerated other abx without issue. History is not c/w an IgE-mediated hypersensitivity reaction. Continue to treat with sulfa as medically necessary Bee allergy status Reported LLR to the right forearm after sting to a bee. No other systemic symptoms noted. No further testing indicated at this time Next Appt Details Follow Up: prn, Reason: Eval uation and Management Procedure Notes * Category Sub-Category Detail Notes Time (Provider Encounter) Time Attestation This new patient encounter took more than:: more than 30 minutes (98199) Tasks performed during this encounter include:: taking a history, performing the physical examnation, documenting in the EHR, This time calculation excludes any time associated with the separately identifiable medical procedures performed/described within this note (e.g. spirometry/flow volume loop, injections, skin testing, etc...) Progress Notes * Jairon HIDALGOB:1960 (63 yo F)Acc No.[id number]:03/26/2024 Progress Notes Patient: Caren TOTH Provider: Dagoberto Blackman PA-C :1960 A ge:63 Y S ex:Female Date:03/26/2024 Address:[address] [id number] Pcp:Ko Bravo Subjective: * Chief Complaints: * C oncern for sulfa allergy after eye irritation with use of sulfa eye-drop 20 years ago * HPI: * Introduction: I had the pleasure of seeing Helio Hidalgo, a 63 y/o female presenting for drug allergy evaluation and management. She is alone for today's visit. She reports approx 20 years ago she has a scratch on her on. She started to use a suld containing abx eye drops. She remembers taking it twice before this resulted in redness to and burning to the eye it was placed in. She began to avoid all eye drops since then with resolution. At the time, her primary was concerned for a sulfa allergy component. She denies any other symports at the time including SOB, wheezing, hives or swelling. She denies issues with any other abx in her lifetime. She also reports LLRto theright forearm after bee sting in [place] that lasted for a few weeks before resolution. No other systemic symptoms noted at the time. She denies a history of physician-diagnosed allergic rhinitis, recurrent sinusitis or otitis media, recurrent pneumonia, asthma/RAD, eczema, food allergies, urticaria/angioedema, contact dermatitis, latex allergy, eosinophilic esophagitis or stinging insect hypersensitivity. She has never undergone allergy skin testing or received allergy immunotherapy. Today, she reports no fevers, chills, night sweats or other constitutional symptoms . * Allergic Rhinoconjunctivitis: Allergic rhinitis D o you have or suspect you have allergic rhinitis (itchy eyes, sneezing, congestion or runny nose triggered by allergies)? N o * Infections: Vaccination History H ave you ever had a flu shot? Y es H ave you ever had a tetanus vaccine (KAjo-Uuxy-Aw)? Y es * Medication allergy: Medication Allergy D o you feel you are allergic to any medications? N o I f antibiotic, what type: s ulfa * ROS: A LLERGY: Positive p er the HPI and history, otherwise unremarkable.? S PECIAL SENSES: Positve for n one. c ataracts Y es. l oss of balance Y es. C ONSTITUTIONAL: Positive for n one. E NT: Positive p er the HPI and history, otherwise unremarkable.? R ESPIRATORY: shortness of breath N o. c hest pain N o. c hest congestion N o. c ough N o. P ositive p er the HPI and history, otherwise unremakable. O PHTHALMOLOGY: Positive for p er the HPI and history, otherwise unremarkable. E NDOCRINOLOGY: Positive for n one. C ARDIOLOGY: Positive for n one. G ASTROENTEROLOGY: Positive for n one. U ROLOGY: difficulty urinating N o. b lood in urine N o. f requent urination N o. u rinary incontinence N o. r ecurrent UTI N o. P ositive for n one. D ERMATOLOGY: skin cancer Y es. P ositive for p er the HPI and history, otherwise unremakable. N EUROLOGY: dizziness Y es. P ositive for n one. ? H EMATOLOGY/LYMPH: Positive for n one. M USCULOSKELETAL: joint swelling Y es. j oint pain Y es. j oint stiffness Y es. f racture Y es. c arpal tunnel Y es. P ositive for n one.? P SYCHOLOGY: high stress level N o. d epression N o. s leep disturbances N o. s uicidal ideation N o. e ating disorder N o. m ental or physical abuse N o. a nxiety N o. P ositive for n one. F EMALE REPRODUCTIVE: Are you ? N o. A ll other review of systems per the HPI and history, otherwise unremarkable. * Medical History: * Surgical History: T onsillectomy 1968hysterectomy 2009 * Hospitalization/Major Diagno stic Procedure: N o Hospitalization History. * Family History: F ather: alive, Yes, diagnosed with Diabetes, Heart Disease. M other: alive, Yes, diagnosed with Diabetes. P aternal Grand Father: No. P aternal Grand Mother: No. M aternal Grand Father: No. M aternal Grand Mother: No. S iblings: Yes. C hildren: Yes. b rother, heart disease. * Social History: M arital Status What is your marital status? m arried A lcohol Screening Do you ever drink alcoholic beverages? Y es Number of drinks per occasion: 1 Frequency? M joanangelesreny muñiz Have you ever smoked tobacco: n ever smoked Additional Findings: Tobacco Non-User N ever used moist powdered tobacco Are you a : n ever smoker R ecreational drug use Have you ever used recreational drugs? N o E xercise What kind(s) of exercise do you perform regularly? a ge-appropriate participation in physical activites O ccupation Are you currenly employed? N o Are you currently a student? N o E nvironmental History Living environment: p rivate home Where is the home located[place] Age of home: 3 2 How long have you lived there? 5 years or more How many people live in the home? 2 * Medications: T akingCalcium + Vitamin D3 600-5 MG-MCG Tablet 1 tablet with a meal Orally Once a day Multivitamin - Tablet 1 tablet Orally Once a day Atorvastatin Calcium 10 MG Tablet 1 tablet Orally Once a day Meloxicam 7.5 MG Tablet 1 tablet Orally Once a day Medication List reviewed and reconciled with the patientTaking Calcium + Vitamin D3 600-5 MG-MCG Tablet 1 tablet with a meal Orally Once a day Taking Multivitamin - Tablet 1 tablet Orally Once a day Taking Atorvastatin Calcium 10 MG Tablet 1 tablet Orally Once a day Taking Meloxicam 7.5 MG Tablet 1 tablet Orally Once a day Medication List reviewed and reconciled with the patient * Allergies: N .K.D.A.no[Allergies Verified] Objective: * Vitals: B P:137/85mm Hg, HR:75/min, Pulse Oximetry:99%, Ht: 66 in, Wt: 179 lbs, BMI:28.89Index. * Examination: G eneral examination: General appearance: p leasant, well-developed, well-nourished. HEENT: p upils equal, round, and reactive to light and accommodation, conjunctiva are normal bilaterally, no tenderness to palpation of the sinuses, TM's without evidence of acute infection, turbinates 2+ swollen and pale inferiorly bilaterally, clear rhinorrhea is present, no polyps noted, no septal perforation, posterior oropharynx is normal, no erythema on pharyngeal wall, no exudates, no tongue swelling, and uvula is midline. Oral cavity: n ormal, no lesions. Neck, thyroid : s upple, non-tender, no anterior cervical lymphadenopathy. Breasts : n ot performed. Heart: R RR, S1-S2, no murmurs, no rubs, no gallops. Lungs: c lear to auscultation and percussion in all lung toussaint, no wheezes or crackles. Abdomen: s oft, NT/ND, normal active bowel sounds. Neurologic exam: u nremarkable. Skin: n ormal, no rash, dermatographism, urticaria, angioedema. Peripheral pulses: n ormal (2+) bilaterally. Back: n ormal. Extremities: n ormal ROM, no clubbing, no cyanosis, no edema. Genitalia: n ot performed. Assessment: * Assessment: 1. O cular pain, unspecified eye - H57.10 (Primary) 2 . B ee allergy status - Z91.030 Plan: * Treatment: 2. B ee allergy status Notes: Reported LLR to the right forearm after sting to a bee. No other systemic symptoms noted. No further testing indicated at this time * Procedures: T gerard (Provider Encounter): Time Attestation T his new patient encounter took more than:?more than 30 minutes (66971) T asks performed during this encounter include: t aking a history, performing the physical examnation, documenting in the EHR, This time calculation excludes any time associated with the separately identifiable medical procedures performed/described within this note (e.g. spirometry/flow volume loop, injections, skin testing, etc...) * Procedure Codes: G 8427 DOC MEDS VERIFIED W/PT OR RE * Preventive Medicine: Counseling: M edication instruction: W atch for side effects of prescribed medications, Nasal steroid/antihistamine instruction: avoid septum. E ducation: G ENERAL EDUCATION: Our staff spent an additional 30 minutes in direct contact with the patient educating them on their current diagnoses and proper treatment and prevention of symptoms and the proper use of medications. P atient education material sent to portal? Y es C are goal follow up plan BMI management provided Y es Above Normal BMI Follow-up D ietary management education, guidance, and counseling B P Management: FIRST HYPERTENSIVE BP READING FOLLOW-UP PLAN: F ollow-up 1 month REFERRAL TO ALTERNATIVE / PRIMARY CARE PROVIDER: R eferral to general physician * Follow Up: p rn (Reason: Evaluation and Management) * Billing Information: * Visit Code: 90594 Office Visit, New Pt., Level 3. Modifiers: 25 * Procedure Codes: G8427 DOC MEDS VERIFIED W/PT OR RE. * Sign off status: Completed true * Provider: Dagoberto Blackman PA-C Date: 0 03/26/2024 Generated for Omid olivera/Fawatson/eTransmitting on: 0 12/05/2024 02:35 PM CDT History and Physical Notes * HPI (History of Present Illness) Category Sub-Category Detail Notes Category Not es *Introduction I had the pleasure of seeing Caren Hidalgo, a 63 y/o female presenting for drug allergy evaluation and management. She is alone for today's visit. She reports approx 20 years ago she has a scratch on her on. She started to use a suld containing abx eye drops. She remembers taking it twice before this resulted in redness to and burning to the eye it was placed in. She began to avoid all eye drops since then with resolution. At the time, her primary was concerned for a sulfa allergy component. She denies any other symports at the time including SOB, wheezing, hives or swelling. She denies issues with any other abx in her lifetime. She also reports LLR to the right forearm after bee sting in [place] that lasted for a few weeks before resolution. No other systemic symptoms noted at the time. She denies a history of physician-diagnosed allergic rhinitis, recurrent sinusitis or otitis media, recurrent pneumonia, asthma/RAD, eczema, food allergies, urticaria/angioedema, contact dermatitis, latex allergy, eosinophilic esophagitis or stinging insect hypersensitivity. She has never undergone allergy skin testing or received allergy immunotherapy. Today, she reports no fevers, chills, night sweats or other constitutional symptoms *Allergic Rhinoconjunctivitis Allergic rhinitis Do you have or suspect you have allergic rhinitis (itchy eyes, sneezing, congestion or runny nose triggered by allergies)?: No *Infections Vaccination History Have you le r had a flu shot?: Yes Have you ever had a tetanus vaccine (DTa p-Tdap-Td)?: Yes *Medication allergy Medication Allergy Do you fe el you are allergic to any medications? : No If antibiotic, what type:: sulfa Examination Category Sub-Category Detail Notes Category Not es General examination HEENT: pupils equal , round, and reactive to light and accommodation, conjunctiva are normal bilaterally, no tenderness to palpation of the sinuses, TM's without evidence of acute infection, turbinates 2+ swollen and pale inferiorly bilaterally, clear rhinorrhea is present, no polyps noted, no septal perforation, posterior oropharynx is normal, no erythema on pharyngeal wall, no exudates, no tongue swelling, and uvula is midline Neck, thyroid : supple, non-tender, no anterior cervical lymphadenopathy Heart: RRR, S1-S2, no murmu rs, no rubs, no gallops Lungs: clear to auscultatio n and percussion in all lung toussaint, no wheezes or crackles Abdomen: soft, NT/ND, normal active bowel sounds Extremities: normal ROM, no clubb ing, no cyanosis, no edema General appearance: pleasant, well-devel oped, well-nourished Skin: normal, no rash, lilia matographism, urticaria, angioedema Neurologic exam: unremarkable Oral cavity: normal, no lesions Breasts : not performed Peripheral pulses: normal (2+) bilatera lly Back: normal Genitalia: not performed
--- OUTSIDE RECORDS SUMMARY | 2024-12-05 15:41 | XMS_ITS | Continuity of Care Document ---
Author Organization [facility]. If a dditional information is needed, contact Health Information Management at [phone] Address [address] [place] [address] Phone Care Team Providers Care Truck Assembler Name Role Phone Unavailable Unavailable Unavailable Unavailable Unavailable Unavailable Unavailable Unavailable Unavailable Unavailable Unavailable Unavailable Problems S92.301A(S92.301A) Onset:16-May-2024 Comments:Onset Date: 20240515 Injury caused by twisting du e to sudden strenuous movement, initial encounter(X50.1XXA) Onset:16-May-2024 Comments:Onset Date: 20240515 Metatarsal bone fracture Onset:15-May-2024 Shashank Luciano DO Sprain of right foot Onset:15-May-2024 Rovenstine Tono L DO Allergies and Adverse Reactions No Known Allergies(Allergy) Onset: 15-May-2024 Medications acetaminophen 325 MG / HYDROcodone bitartrate 5 MG Oral Tablet;1 TABLET 1XED Quantity:1 Rovenstine Tono L DO Start:2-Aqg-4419Wto:15-May-2024 Comments:[id number] ibuprofen 800 MG Oral Tablet;800 MILLIGRAM 1XED Quantity:1 Rovenstine Tono L DO Start:[id number]-Qgq-6158Npz:15-May-2024 Comments:[id number] Administration Instructions:NO MORE THAN 3200MG/24HR Procedures FOOT AP & LAT W/OBLIQ RTResult:[facility] Name: SUSIE DANG [address] Phys: Tono EncarnacionONTANISHA [address] : 1960 Age: 63 Sex: F Acct: [id number] Loc: J.ER PHONE #: [phone] Exam Date: 05/15/2024 Status: REG ER FAX #: [phone] Radiology No: Unit No: [id number] EXAMS: REASON FOR EXAM: CPT CODE: [id number] FOOT AP LAT W/OBLIQ R 5th MT pain [place] 63190 TECHNIQUE - FOOT AP LAT W/OBLIQ RT CLINICAL INFORMATION 5th MT pain p twisting injury. COMPARISON None. FINDINGS/IMPRESSION There is an oblique mildly displaced nonangulated fracture through the fifth metatarsal mid diaphysis with overlying soft tissue swelling. at 1919 Reported and signed by: TIARRA ESCALONA.,MANJEET Braden CC: Tono Encarnacion DO Dictated Date/Time: 05/15/2024 (1918)Technologist: [id number] Transcribed Date/Time: 05/15/2024 (1918)Natural Resources Engineer: RIKI Electronic Signature Date/Time: 05/15/2024 (1918)Orig Print D/T: S: 05/15/2024 (1922) BATCH NO: N/A PAGE 1 Signed Report Date:15-May-2024 Status:Completed Social History Smoking Status Smokes tobacco daily Recorded: 15-May-2024 Vital Signs 15-May-2024 19:00 Lvengawxwla19.3f Comments:98.3 Pulse82 Comments:82 Respiratory Rate18 Comments:18 O2 SAT98% Comments:98 BP [id number][Hg] Comments:17 6 BP [id number][Hg] Comments:1 10 Height5.5[ft_us] Comments:5 Itfrtr23.909kg Comments:80.909 15-May-2024 19:00 BMI28.8kg/m2 Comments:28.8 Encounters Emergency Encounter Reason:RIGHT FOOT PAIN , FELL OVER CURB. Encounter Diagnosis:Overexertion from prolonged static or awkward postures, initial encounter,Displaced fracture of fifth metatarsal bone, right foot, initial encounter for closed fracture 15-May-2024 18:[id number]-Vhn-0333 20:42 [facility] [place] Discharge Disposition:Discharged to home or self care (routine discharge) Shashank Luciano DO-15-May-2024 [facility])EMERGENCY PROVIDER REPORTREPORT#:[id number] REPORT STATUS: SignedDATE:05/15/24 TIME: ATIENT: SUSIE DANG UNIT #: [id number]#: [id number] ROOM/BED:AGE: 63 SEX: F PCP PHYS: No Primary or Family PhysicianSERVICE AUTHOR: Tono Encarnacion REP SRV TM: 190* ALL edits or amendments must be made on the electronic/computer document *HPI-General IllnessFree Text HPI NotesFree Text HPI [id number]-wgjn-hks female who presents with a right foot pain. States just prior toarrival, she accidentally twisted her foot getting into her car. Now havingpain in the lateral part of her foot. Denies any previous foot fracture orproblems in the past. Denies any ankle pain, knee pain or any other concernGeneralInitial Greet Date/Time 05/15/24 1854PresentationChief Complaint __ (Right foot injury)Review of SystemsROS StatementsAll systems rev neg except as marked.Past Medical History - AdultStated Complaint RIGHT FOOT PAIN , FELL OVER CURB.AllergiesCoded Allergies:No Known Allergies (05/15/24)Physical ExamVital SignsVital SignsFirst Documented: Result Date Time Pulse Ox 98 05/150 B/P 176/110 05/15 1900 B/P Mean 132 05/150 O2 Delivery Room air 05/15 1900 Temp 36.8 05/15 1900 Pulse 82 05/150 Resp 18 05/15 1900Last Documented: Result Date Time Pulse Ox 98 05/15 1900 B/P 176/110 05/15 1900 B/P Mean 132 05/15 1900 O2 Delivery Room air 05/15 1900 Temp 36.8 05/15 1900 Pulse 82 05/150 Resp 18 05/15 1900Review of Vital Signs ReviewedFree Text PE NotesFree Text PE NotesGen: Alert and oriented, no apparent distressMsSk /Extremities: NVI. No edema. Functional range of motion all extremitiesRight foot- no gross deformity, +Tenderness shaft 5th metatarsal. No ecchymosisSkin: Warm, dry, no rashNeuro: Intact without focal neurologic deficit. Normal SpeechPsych: Appropriate mood and affect presentInterpretation DiagnosticsLab Results InterpretationResultsRecent Impressions:RADIOLOGY - FOOT AP LAT W/OBLIQ RT 05/15 1904 Report Impression - Status: SIGNED Entered: 05/15/20241922FINDINGS/IMPRESSIONThere is an oblique mildly displaced nonangulated fracture throughthe fifth metatarsal mid diaphysis with overlying soft tissueswelling.Impression By: HECTOR MAYEN MD.,MANJEET Braden Imaging StatementRadiographic studies reviewed and considered in the medical decision-making.Re-Evaluation MDMFree Text MDM NotesFree Text MDM Notesmid shaft angulated and displaced 5th MT fracture.Placed in post splint and given crutches w instructions to be NWB until toldotherwise by Ortho.Patient visiting family here (from [facility]). Plans to f/u w Ortho in [facility] whenthey return. States she will coordinate through her PCP.Rx for Motrin 800mg and NorcoED CourseMedication(s) OrderedMedication(s) Ordered:Central Nervous System Agents Sig/Ruiz Start time Last Medication Dose Route Stop Time Status Admin Ibuprofen 800 MG 1XED ONE 05/15 1915 DC 05/15 PO 05/15 1916 190Patient Discharge DepartureVital Signs/ConditionVital SignsFirst Documented: Result Date Time Pulse Ox 98 05/15 1900 B/P 176/110 05/15 1900 B/P Mean 132 05/150 O2 Delivery Room air 05/15 1900 Temp 36.8 05/15 1900 Pulse 82 05/150 Resp 18 05/15 190Last Documented: Result Date Time Pulse Ox 98 05/15 1900 B/P 176/110 05/15 1900 B/P Mean 132 05/15 1900 O2 Delivery Room air 05/15 1900 Temp 36.8 05/15 1900 Pulse 82 05/15 190 Resp 18 05/15 1900All vital signs available at the time of this entry have been reviewed.Clinical ImpressionClinical ImpressionPrimary Impression: Metatarsal fractureDisposition DecisionDischarge )( Discharged to Home Yes )( Date 05/15/24Discharge/Care PlanCounseled Regarding Diagnosis, Imaging studies, Need for follow-up, When toreturn to ED(Auto) PrescriptionsCurrent Visit ScriptsIBUPROFEN 800 MG PO Q8H PRN PRN pain IBUPROFEN 800 MG PO Q8H PRN PRN pain #30 TABHYDROcodone/ACETAMINOPHEN ([place] 5-325) 1 TAB PO Q4HR PRN PRN pain HYDROcodone/ACETAMINOPHEN ([place] 5-325) 1 TAB PO Q4HR PRN PRN pain #10 TABPatient Instructions ED Fracture, FootAdditional InstructionsFollow up with your local [place]opedic doctor [place] next week fordefinitive care of your foot.Do not apply any weight to your right foot. Use crutches for getting arounduntil you see Ortho.You may take Ibuprofen 800mg every 8 hours as needed for painReferralsProvider Referral: No Primary or Family PhysicianDeparture FormsAdditional Information/NoticePers[facility] at 2022RPT #: [id number] OF REPORT Plan of Treatment Follow up with your local Orthopedic doctor in [place] next week for definitive care of your foot. Do not apply any weight to your right foot. Use crutches for getting around until you see Ortho. You may take Ibuprofen 800mg every 8 hours as needed for pain Future Tests Future scheduled test information is unavailable Pending Tests Pending diagnostic test information is unavailable Future Visits Future appointment information is unavailable Referrals to Other Providers Reason for Referral Referral Start Date Provider Provider Contact Information Provider Address No Primary or Family Physician Future Procedures Future procedure information is unavailable Future Medications Future medication information is unavailable Patient Instructions Instruction Admit Date ED Fracture, Foot May 15, 2024 6: 50pm Assessments Diagnosis Onset Date Resolution Status Admit Date Sprain of foot, right Active [place] 2023 6:50pm Metatarsal fracture Active [place] 2023 6:50pm
--- OUTSIDE RECORDS SUMMARY | 2024-12-05 15:41 | XMS_ITS | Encounter Summary ---
Author Organization [facility] Address [address] [place] [address] Care Team Providers Care Childcare Teacher Name Role Phone Ko Bravo DO Primary Care Provider + Encounter Details Date Type Department Care Team (Late st Contact Info) Description 12/11/2023 MyCVidPayt Message Enc [facility] Medical Group Family & Internal Medicine 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 * Jacquelyn Nuñez MA - 12/11/2023 11:38 AM CDT Images from the original note were not included. Please advise on timing. Amanuel Rosenberg Nurse (supporting Ko Bravo DO)2 hours ago (9:29AM) TC I am scheduled to get a polio vaccination tomorrow and a steroid injection into my SI joint in two weeks. Should I wait longer between the shots? I didn???t know if they would inference with each others efficacy. documented in this encounter Plan of Treatment Upcoming Encounters Date Type Department Care Team (Late st Contact Info) Description 12/19/2024 11:20 AM CDT Office Visit [facility] Medical Group Family & Internal Medicine - [place] [id number] [place] [address] Ko Bravo DO [facility] [place] [address] documented as of this encounter Visit Diagnoses Not on filedocumented in this encounter Care Teams Childcare Teacher Relationship Specialty Start Date End Date Ko Bravo DO [address] [place] [address] PCP - General FAMILY PRACTICE 12/05/22 documented as of this encounter
--- OUTSIDE RECORDS SUMMARY | 2024-12-05 15:41 | XMS_ITS ---
Author Organization [facility] Address [address] [place] [address] Care Team Providers Care Sound Assistant Name Role Phone Ko Bravo DO Primary Care Provide r Liz Cooney MD Unavailable [phone] Kameron Wynne MD Unavailable [phone] Awa Smith Unavailable [phone] Active Problems Problem Noted Date Diagnosed Date Trigger finger of left thumb 12/02/2024 Left hand pain 12/02/2024 S/P ORIF (open reduction internal fixation) rene raza 05/24/2024 Assessment & Plan (06/24/2024 1:06 PM SALES SUPPORT ENGINEER): Patient's surgical site appears to be healing well and is without signs of infection at this time. She will continue to keep the surgical site clean and dry until follow up with Dr. Whatley. She will continue to monitor for signs of infection, which were reviewed again today. She unfortunately continues to have pain over the 2nd-4th metatarsal heads. I am concerned for stress fracture or other soft tissue injury as her pain is worsening. We will obtain an MRI to evaluate for this. She will follow up with Dr. Whatley in 4 weeks. Assessment & Plan (06/17/2024 8:32 AM SALES SUPPORT ENGINEER): Patient is doing well overall. X-rays were reviewed with the patient today in clinic and demonstrate hardware in good alignment without apparent complication. We will send in doxycycline for possible surgical site infection. Patient will continue to keep the surgical site clean and dry. Discussed with the patient they need to remain nonweightbearing until their next follow-up appointment. She will follow up in 1 week for wound check with me. She expressed understanding and agreement with the plan. Assessment & Plan (06/10/2024 8:41 AM SALES SUPPORT ENGINEER): Patient is doing well overall. X-rays were reviewed with the patient today in clinic and demonstrate hardware in good alignment without apparent complication. No evidence of infection of the surgical site. Sutures were removed today in clinic and Steri-Strips applied. Patient will continue to keep the surgical site clean and dry for 2 more weeks and then may start getting it wet in the shower. Signs of infection were reviewed with the patient including increased swelling and erythema along the surgical site, purulent drainage from the surgical site, fever, chills and they will notify us they develop any of these signs. Discussed with the patient they need to remain nonweightbearing until their next follow-up appointment. She will follow up in 1 week for wound check with me. They will follow up in 4 weeks for x-rays and further evaluation with Dr. Whatley. Expressed understanding and agreement with the plan. 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 Right hand pain 11/10/2021 Trigger finger of right thumb 11/10/2021 Lumbar disc prolapse with compression radiculopa thy 10/26/2021 Sacroiliitis 07/28/2021 Family history of colon cancer 01/21/2021 History of colon polyps 01/21/2021 Basal cell carcinoma (BCC) of skin of face 01/21 Family history of breast cancer 01/21/2021 Right lumbar radiculitis 05/25/2020 Spinal stenosis of lumbar re gion with neurogenic claudication 05/25/2020 Lumbar facet joint syndrome 10/04/2019 Lumbosacral spondylosis without myelopathy 10/04 Pelvic and perineal pain 12/07/2018 Overweight with body mass index (BMI) 25.0-29.9 11/30/2017 Low back pain 03/10/[address] of the abdomen 09/29/2015 Localized chondromalacia 08/13/2015 Senile lentigo 01/16/2015 History of malignant neoplasm of skin 01/16/2015 Irritable bowel syndrome 12/04/2014 Hematochezia 12/04/2014 Chondromalacia of right patella 08/27/2014 Anterior shoulder dislocation 07/01/2014 Osteoarthritis of knee 06/23/2014 Skin tag 12/11/2013 Seborrheic keratosis 12/11/2013 Screening for malignant neoplasm of cervix 09/06 Well adult health check 09/06/2011 Menopausal symptom 09/06/2011 Urinary incontinence 09/06/2011 Current Treatment and Therapy Plans No current plan information found. Past Treatment and Therapy Plans No past plan information found. Lifetime Dose Tracking * Chemical Lifetime Dose Automatic Entry Manual Entr y Fluoro Time 1.418 minutes 1.418 minutes 0 minutes Air kerma at the reference point (Ka,r) 12.473 mGy 1 2.473 mGy 0 mGy
--- OUTSIDE RECORDS SUMMARY | 2024-12-05 15:41 | XMS_ITS | Patient Health Record ---
Author Organization Counts Include [facility] [place] ([address]) Address [address] [place] [address] Care Team Providers Care Office Equipment Technician Name Role Phone Ko Bravo Primary Care Provider Mitch Robles [phone] Allergies No Known Allergies Reason For Referral No Information Medications Medication SIG (Take, Route, Frequency, Duration) [...] Status Risk Notes Problem Pain in eye (54556522) Ocular pain, unspecified eye (H57.10) Active confirmed Problem Allergy to bee venom (344416025) Bee allergy status (Z91.030) Active confirmed Vital Signs Oximetry 99 % 03/26/2024 Blood pressure diastolic 85 mm Hg 03/26/2024 Height 66 in 03/26/2024 Blood pressure systolic 137 mm Hg 03/26/2024 Weight 179 lbs 03/26/2024 BMI 28.89 kg/m2 03/26/2024 Encounters Encounter Location Date Provider Diagnosis [facility] [address] [facility] [address] [place] [address] 03/26/2024 Mitch Blackman Ocular pain, unspecified eye [...] this time 03/26/2024 Other Plan Of Treatment No Information Insurance Providers Payer Name Payer Address Payer Phone Subscriber Number Group Number Insured Name Patient Relationship to Insured Coverage Start Date Coverage End Date [facility] [address] [place] [address] [id number] Caren Hidlago Self - patient is the insured Medical (General) History Surgical History Surgery Date(Month/Year) Tonsillectomy 1968 hysterectomy 2009
--- OUTSIDE RECORDS SUMMARY | 2024-12-05 15:41 | XMS_ITS | Encounter Summary ---
Author Organization [facility] Address [address] [place] [address] Care Team Providers Care Construction Driller Name Role Phone IsraelkellenandreiKo funes Gonzales Primary Care Provide r Liz Cooney MD Unavailable [phone] Kameron Wynne MD Unavailable [phone] Awa Smith Unavailable [phone] Reason for Visit * Reason Comments Dizziness Yesterday she got di zzy after doing a yoga class and felt nauseous with cold sweats and felt off balance when walking. She reports this happened at 9am and she laid in bed the whole rest of the day and sxs improved but she still felt off. Today she was doing her normal routine and felt dizzy multiple times. Reports when she gets the dizziness she gets light headed and yesterday she felt like she was going to faint Encounter Details Date Type Department Care Team (Late st Contact Info) Description 12/05/2024 2:45 PM CDT Office Visit [facility] at [address] [phone] Maddy Richter NP [address] [place] [address] [address] [place] [address] Dizziness (Primary Dx); Lightheadedness Social History Tobacco Use Types Packs/Day Years Used Date Smoking Tobacco: Never Smokeless Tobacco: Never Alcohol Use Standard Drinks/Week Comments Never 0 (1 standard drink = 0.6 oz pur e alcohol) AUDIT-C Answer Date Recorded Q1: How often do you have a drink containing alc ohol? 2-3 times a week 05/21/2024 Q2: How many drinks containi ng alcohol do you have on a typical day when you are drinking? 1 or 2 05/21/2024 Q3: How often do you have si x or more drinks on one occasion? Never 05/21/2024 PHQ-2 Answer Date Recorded PHQ-2 Total Score (If total score is 3 or more points, staff should administer the PHQ-9) 0 10/26/2021 Personal Safety Answer Date Recorded Have you ever been in or are you currently in a harmful physical or emotional relationship or is someone making you feel afraid or unsafe? 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 on file Not on file Not on file documented as of this encounter Last Filed Vital Signs Vital Sign Reading Time Taken Comments Blood Pressure 132/82 12/05/2024 2:58 PM CDT sta nding up Pulse 85 12/05/2024 2:58 PM CDT Temperature 36.8 C (98.2 F) 12/05/2024 2:38 PM CDT Respiratory Rate 20 12/05/2024 2:38 PM CDT Oxygen Saturation 99% 12/05/2024 2:38 PM CDT Inhaled Oxygen Concentration - - Weight 82.1 kg (181 lb) 12/05/2024 2:38 PM CDT Height - - Body Mass Index 29.21 06/17/2024 8:01 AM JEWEL STRIPPER documented in this encounter Plan of Treatment Not on file documented as of this encounter Visit Diagnoses Diagnosis Dizziness- Primary Dizziness and giddiness Lightheadedness Dizziness and giddiness documented in this encounter Care Teams Construction Driller Relationship Specialty Start Date End Date Ko Bravo DO [address] [place] [address] PCP - General Family Medicine 04/26/23 Liz Cooney MD [address] [address] Consulting Physician Obstetrics and Gynecology 04/26/23 Kameron Wynne MD [address] [place] [address] Referring Physician Neurology 03/07/24 Awa Smith PA [address] [facility] [address] [address] Orthopedic Surgery 05/24/24 documented as of this encounter
--- OUTSIDE RECORDS SUMMARY | 2024-12-05 15:41 | XMS_ITS | Data Portability ---
Author Organization [facility] [place] Address [address] [place] [place] [address] Assessment Encounter Date Assessment Date Assessment LastModified by Organization Details LastModified Time 02/28/2020 02/28/2020 Annual gynecological exam performed. Patient will come back in a year unless there are new symptoms. Not available 02/28/2020 13:01:50 Plan of Treatment Reminders Order Date Submit Date Provider Last Modified By Organization Details Last Modified Time Details Appointments None recorded. Lab urinalysis , dipstick 2019 020 [email or web address] [place], [address], [place], [address], 0 15:37:25 Referral None recorded. Procedures None recorded. Surgeries None recorded. Imaging None recorded. Medication Orders None recorded. Patient TargetsNo targets recorded. Patient InstructionsNo instructions recorded. Reason for Referral None Reported. Results Created Date Observation Date Name Description Value Unit Range Abnormal Flag Note LastModifiedBy Organization Detail LastModifiedTime 02/28/2003/01/2020 cultu re, urine specimen source Urine - Void Not Available [facility] ([facility]) [address], [place], [address], 03/01/2020 03:15:50 02/28/20 20 03/01/2020 cultu re, urine culture, urine See Below No growt h Not Available [facility] ([facility]) [address], [place], [address], 03/01/2020 03:15:50 02/28/20 20 03/02/2020 pap, LB Pap test thin prep Negati ve for Intrae pithel ial Lesion or Malign mitchell normal ACCES [place] #: [id number] Sourc e: Cervi che/E ndoce rvica l LMP: 08/07 Date Taken : 02/27 Speci men Type: ThinP rep Vial Date Repor calvin: 2019 Clini che Data: Cytot ech: Kaitl in Tracey Millan , CT( CP) Date Repor calivn: 2019 Speci men Adequ acy: Satis facto ry for evalu ation Gener al Categ oriza tion: NEGAT AREN FOR INTRA EPITH ELIAL LESIO N OR MALIG LELO Inter preta tion/ Resul t: Atrop hy This speci men has been sherin zed by the ThinP rep Imagi ng Syste m, an inter activ e compu ter syste m which chaka ts the lab in the scree марина of ThinP rep Pap Test slide sGogo brower imagi ng, the slide was revie wed by a Cytot echno logis t and/o r Patho logis t. D N A A S S A Y S R E P O R T TEST NAME RESUL TS ----- ---- ----- -- HPV High Risk Scree n (TMA) ThinP rep Vial The human papil lomav irus (HPV) High Risk Scree n is an FDA-a pprov ed in-vi tro ampli fied nucle ic acid test for the quali tativ e detec tion of E6/E7 viral mRNA. Resul ts shoul d be corre lated with patie nt prese ntati on, histo ry, cervi che cytol ogy and other clini che and labor atory findi ngs. See https ://[facility]/s ites/ defau lt/fi les/2 018-0 3/AW- 01255 _002_ 01.pd f for aleida eaton infor matvickie n. Test perfo rmed by [facility], d/b/a [place], [address], [place] [address] , Jossue De León ra, DO, Labor [facility] tor. HPV High Risk *HPV NOT DETEC CALVIN (TYPE S 16, 18, 31, 33, 35, 39, 45, 51, 52, 56, 58, 59, 66, 68) *HPV: The human papil lomav irus (HPV) High Risk Ayo irizarry is an FDA-a pprov ed in-vi tro ampli fied nucle ic acid test for the quali tativ e detec tion of E6/E7 viral mRNA. [facility] ts shoul d be corre lated with patie nt prese ntati on, histo ry, cervi che cytol ogy and other clini che and labor atory findi ngs. See https ://[facility]/s ites/ defau lt/fi les/2 018-0 3/AW- 01828 _002_ 01.pd f for [facility] uma chowr av irizarry. Test perfo rmed by [facility], d/b/a [facility], [address], [place] [address] , Jossue De León ra, DO, Labor [facility] tor. End of Repor t Techn ical servi alyssa provi ded by [employer], d/b/a [facility], [address] [place] [address] Roshan Whatley MD, [facility]. Case revie wed and diagn osis rende red at [facility], d/b/a [facility] [employer] [facility], [address] [place] [address] Roshan Whatley MD, [facility] [employer] [facility]. CONFI DENTI AL Not Available [facility] [address], [place], [address], 03/02/2020 17:03:55 02/28/20 20 03/01/2020 HPV DNA, high- risk HPV high risk NOT DETECT ED normal Not Available [facility] ([facility]) [address], [place], [address], 03/02/2020 17:03:55 02/28/20 20 02/28/2020 urina lysis , dipst ick Leukocytes +1 Not Available [facility] [address], [place], [address], 02/28/2020 13:11:43 Result Notes None recorded. Problems Name Problem SNOMED Code Status Onset Date Resolution Date Notes Provider Name and Address Organization Details Recorded Time Overweigh t 272951141 Active 2014 Overweight ;Recorded Elsewhere: No Locatio n: [facility] rce: EHR Chroni c: N Practice ID: 0001 Billa ble Time: 04:00:00 PM Not Available [facility] 0 18:50:05 Body mass index 25-29 - overweigh t 869004083 Active 2017 Body mass index (BMI) 28.0-28.9, adult;Daljit rded Elsewhere: No Locatio n: [facility] rce: EHR Chroni c: N Practice ID: 0001 Billa ble Time: 04:30:00 PM Not Available [facility] 0 18:50:05 Specializ ed medical examinati on Active 2013 Gynecologi che Examinatio n;Recorded Elsewhere: No Locatio n: [facility] rce: EHR Chroni c: N Practice ID: 0001 Billa ble Time: 04:30:00 PM Not Available [facility] 0 18:50:05 Menopausa l symptom 51162367 Active 2011 Menopausal or female climacteri c states;Rec orded Elsewhere: No Locatio n: [facility] rce: EHR Chroni c: N Practice ID: 0001 Billa ble Time: 04:30:00 PM Not Available [facility] 0 18:50:05 Screening for malignant neoplasm of cervix Active 2011 Screening for malignant neoplasms of the cervix;Rec orded Elsewhere: No Locatio n: [facility] rce: EHR Chroni c: N Practice ID: 0001 Billa ble Time: 04:30:00 PM Not Available [facility] 0 18:50:05 Urinary incontine nce 613657910 Active 2011 Urinary incontinen ce, unspecifie d;Recorded Elsewhere: No Locatio n: [facility] rce: EHR Chroni c: N Practice ID: 0001 Billa ble Time: 04:30:00 PM Not Available [facility] 0 18:50:[address] Concept Active 2016 Encntr for general adult medical exam w/o abnormal findings;R ecorded Elsewhere: No Locatio n: [facility] rce: EHR Chroni c: N Practice ID: 0001 Billa ble Time: 04:30:00 PM Not Available [facility] 0 18:50:05 Pelvic and perineal pain 325744408 Active 2018 Pelvic pain;Recor ded Elsewhere: No Locatio n: [facility] rce: EHR Chroni c: N Practice ID: 0001 Billa ble Time: 09:45:00 AM Not Available [facility] 0 18:50:[address] Concept Active 2015 Encntr for rail layer exam (general) (routine) w/o abn findings;R ecorded Elsewhere: No Locatio n: [facility] rce: EHR Chroni c: N Practice ID: 0001 Billa ble Time: 04:15:00 PM Not Available [facility] 0 18:50:05 Screening for malignant neoplasm of rectum Active 2011 Screening for malignant neoplasms of the rectum;Rec orded Elsewhere: No Locatio n: [facility] rce: EHR Chroni c: N Practice ID: 0001 Billa ble Time: 04:30:00 PM Not Available [facility] 0 18:50:06 Adult health examinati on Active 2014 ROUTINE MEDICAL EXAM;Recor ded Elsewhere: No Locatio n: [facility] rce: EHR Chroni c: N Practice ID: 0001 Billa ble Time: 04:00:00 PM Not Available [facility] 0 18:50:06 Menopause present 510590076 Active 2018 Menopausal and female climacteri c states;Rec orded Elsewhere: No Locatio n: [facility] rce: EHR Chroni c: N Practice ID: 0001 Billgerry ble Time: 09:45:00 AM Not Available [facility] 0 18:50:06 Problem Notes None recorded. Procedures Surgical History Date Name Laterality Status Provider Name and Address Organization Details Recorded Time 08/07/19 15 excision of basal cell carcinoma completed [facility] 03/11/2020 11:29:23 08/07/19 11 Colonoscopy completed [facility] 03/11/2020 11:28:56 08/07/19 09 total hysterectomy via vaginal approach completed [facility] 03/11/2020 11:28:34 08/07/18 99 Hysteroscopy completed [facility] 03/11/2020 11:26:47 08/07/18 99 Dilation and Curettage completed [facility] 03/11/2020 11:26:57 08/07/18 69 Tonsillectomy completed [facility] 02/28/2020 12:54:47 Imaging Results None recorded. Procedure Notes None recorded. Medical Equipment None Reported. Allergies Allergen ID Allergen Name Allergen Category Reaction Reaction Severity Criticality Documentation Date Start Date Code Code System Note Provider Name and Address Organization Details Recorded Time 1432 Substance with sulfonami de structure and antibacte rial mechanism of action (substanc e) medicatio n Not available Not available Not available 02/28/2020 [id number] SNOMED [facility] 0 12:18:36 Medications Name Sig Start Date Stop Date Status Note LastModified by Organization Details LastModified Time amoxicill in 500 mg capsule take 1 capsule (500MG) by oral route 3 times every day for 10 days 09/27 completed Prescrib ed Elsewher e: No Locat ion: [facility] odify By: [email or web address] Mayst er DateTime : 09/18/19 13 05:45:18 PM Not Available Not Available Not Available atorvasta tin 10 mg tablet take 1 tablet by oral route every day 2017 active Prescrib ed Elsewher e: Yes Loca tion: [facility] odify By: rob Davies ncounter DateTime : 12/01/19 18 04:30:00 PM Not Available Not Available Not Available omeprazol e 10 mg capsule,d elayed release take 2 capsule by oral route every day before a meal 11/30 completed Prescrib ed Elsewher e: Yes Loca tion: [facility] odify By: rob Davies ncounter DateTime : 09/29/19 16 04:15:00 PM Not Available Not Available Not Available diclofena c 0.1 % eye drops instill 1 drop by ophthalm ic route 4 times every day into affected eye(s) beginnin g within 15 minutes after surgery 11/10 completed Prescrib ed Elsewher e: Yes Loca tion: [facility] odify By: rob Davies ncounter DateTime : 09/29/19 16 04:15:00 PM Not Available Not Available Not Available diclofena c sodium 25 mg tablet,de layed release take 1 tablet by oral route 2 times every day with food 11/10 completed Prescrib ed Elsewher e: Yes Loca tion: [facility] odify By: rob Davies ncounter DateTime : 10/14/19 16 02:21:02 PM Not Available Not Available Not Available piroxicam 10 mg capsule take 1 capsule by oral route every day 2016 active Prescrib ed Elsewher e: Yes Loca tion: [facility] odify By: rob Davies ncounter DateTime : 11/11/19 17 04:30:00 PM Not Available Not Available Not Available gabapenti n 100 mg capsule take 3 capsule by oral route 3 times every day 2017 active Prescrib ed Elsewher e: Yes Loca tion: [facility] odify By: rob Davies ncounter DateTime : 12/01/19 18 04:30:00 PM Not Available Not Available Not Available estradiol 0.5 mg tablet TAKE 1 TABLET DAILY (WILL NEED APPOINTM ENT FOR ADDITION AL REFILLS) 2018 active Prescrib ed Elsewher e: No Locat ion: [facility] odify By: viviana temple DateTime : 02/15/20 19 12:41:16 PM Not Available Not Available Not Available Vitamin D2 1,250 mcg (50,000 unit) capsule take 1 capsule by oral route every week for 8 weeks. 11/10 completed Prescrib ed Elsewher e: No Locat ion: [facility] odify By: rob Davies ncounter DateTime : 11/12/19 16 12:29:15 PM Not Available Not Available Not Available ranitidin e HCl (bulk) powder 12/07 completed Prescrib ed Elsewher e: Yes Loca tion: [facility] odify By: [email or web address] Encount er DateTime : 12/01/19 18 04:30:00 PM Not Available Not Available Not Available Calcium-5 00 500 mg (as calcium carbonate 1,250 mg) tablet active Prescrib ed Elsewher e: Yes Loca tion: [facility] odify By: [email or web address] Encounte r DateTime : 09/29/19 16 04:15:00 PM Not Available Not Available Not Available Metamucil 0.52 gram capsule active Prescrib ed Elsewher e: Yes [facility]oca [facility] By: [email or web address] Encount er DateTime : 09/29/19 16 04:15:00 PM Not Available Not Available Not Available Vesicare 5 mg tablet take 1 tablet by oral route every day 11/30 completed Prescrib ed Elsewher e: Yes Loca [facility]ion: [facility] By: rob perezunter DateTime : 09/29/19 16 04:15:00 PM Not Available Not Available Not Available atorvasta tin active Not Available Not Available Not Available estradiol active Not Available Not [place] il[place] Not Available calcium active Not Available Not Avail able Not Available piroxicam active Not Available Not [place] il[place] Not Available Metamucil active Not Available Not [place] il[place] Not Available gabapenti n active Not Available Not Available Not Available multivita min active Not Available Not Available Not Available Vitamin D3 10 mcg (400 unit) capsule 12/07 completed Prescrib ed Elsewher e: Yes Loca tion: [facility] odify By: [email or web address] Encount er DateTime : 11/11/19 17 04:30:00 PM Not Available Not Available Not Available Celebrex 50 mg capsule take 2 capsule by oral route 2 times every day 05/06 completed Prescrib ed Elsewher e: Yes Loca tion: [facility] odify By: maryann Arenas unter DateTime : 09/05/19 12 07:00:13 PM Not Available Not Available Not Available Multi Vitamin 9 mg iron/15 mL oral liquid active Prescrib ed Elsewher e: Yes Loca tion: [facility] odify By: pamela Rocha r DateTime : 09/29/19 16 04:15:00 PM Not Available Not Available Not Available biotin 1 mg capsule 11/10 completed Prescrib ed Elsewher e: Yes Loca tion: [facility] odify By: rob padgett DateTime : 09/29/19 16 04:15:00 PM Not Available Not Available Not Available Vitals Date Recorded Body height Body mass index (BMI) Body weight Systolic blood pressure Diastolic blood pressure Provider Name and Address Organization Details Last Updated DateTime 02/28/2020 167.64 cm 29.5 kg/m2 02141.4 g 118 mm[Hg] 77 mm[Hg] Anayeli Mcconnell [facility] 0 13:02:32 Social History None recorded. Functional Status None recorded. Mental Status None recorded. Family History Relationship Description Onset Age of this Age Resolved Age Notes LastModified by Organization Details LastModified Time Father Diabetes mellitus [email or web address] Not available 2019 12:16:19 Paternal Grandmother Carcinoma in situ of colon [email or web address] Not available 2019 12:17:06 Paternal Grandmother Glaucoma [email or web address] Not available 12:17:29 Paternal Aunt Glaucoma Not a vailable 02/28/2020 12:17:29 Paternal Aunt Diverticulit is [email or web address] Not available 2019 12:17:44 Paternal Aunt Carcinoma in situ of breast [email or web address] Not available 2019 12:18:01 Notes:Throat cancer-Paternal grandfather Father: Diabetes mellitus type 1 Paternal aunt: Glaucoma, Cancer, breast, Diverticulitis Paternal grandfather: Throat Cancer Paternal grandmother: Glaucoma, Cancer, colon Medical History Condition Response Cancer Y Gynecological HistoryNo gynecological history recorded. Obstetrics History GPAL:G 0 P 0 0 0 0 Past Encounters Encounter ID Performer Location Encounter Start Date Encounter Closed Date Diagnosis/Indication Diagnosis SNOMED-CT Code Diagnosis ICD10 Code Diagnosis Note [id number] Brian Levine MD [place] [address] [address] 02/28/2020 12:54:15 02/29/2020 13:38:08 Gynecologic examination 86660708 Z01.419 This patient is here for her annual exam. A thorough history was taken. A physical exam was performed. Age appropriat e routine health screening was ordered, performed, and discussed. Recommende d testing was ordered. She was asked to follow up in one year. She will be informed of any test results. Mammogram - [done] Colonoscop y - [none] Bone Density - [not applicable ] Cholestero l - [done] Pap - today Health Concerns Section Related Observation LastModified by Organization Detai ls LastModified Time None Recorded Concern Status LastModified by Organization Details LastModified Time None Recorded Advance Directives Directive None Recorded Payers Encounter Date Sequence Insurance Name Policy Number Policy Aburto Covered Member ID Aburto Member ID Guarantor Name 02/28/2020 1 [place] [id number] Nahum Hidalgo [id number] Notes Date Note Type Note Provider Name and Address Organization Details Recorded Time 02/28/2020 text/html Annual GYNReport ed bypatient.History: no gynecologic complaints Urinary symptoms:No hematuria; No incontinence Vulva:No genital lesion Vagina:Normal vaginal discharge Breast:No breast pain; No breast lump; No nipple discharge Sexual complaints:No sexual complaints; No pain during intercourse; Normal libido Menopausal Symptoms:Hot flashes Psychological symptoms:No depression; No anxiety; No PMDD Preventive measures:Encourage self breast examination; Encourage regular exercise; Mammogram performed within the past year; Up to date on colonoscopy screening Brian Levine MD [address], [place], [address], [facility] 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 Status 02/28/20 20 1 CLOSED Fetus Data First Name Last Name Admitted to NICU Weight (g) Sex Living Outcome Pediatric Complications Fetus ID Race Codes Race Delivery Type 3138 Vaginal Delivery Chon Calculation Initial Chon Date Initial Exam Date Initial Exam Provider Initial Ultrasound Date Last Menstrual Period Date Ultra Sound Weeks Gestation 0 Eighteen To Twenty Week Chon Update Ultra Sound Date Fundal Height At Umbil Quickening Date Ultra Sound Latest Weeks Gestation Final Chon Confirmed By Final Chon Confirmed Date Final Chon Date Ultra Sound Latest Days Gestation 0 0 Menstrual History Last Menstrual Date Menses Monthly On Bcp Conception Prior Menses Frequency Hcg Plus Date Menarche Onset Age Delivery Information Delivery Date Delivery Type Labor Anesthesia Weeks Gestation Incision Type Labor Labor Length Hrs Delivered By Post Complications Tubal Sterilization Discharge Date Comments 8 Josef Discharge Information Feeding Method Contraceptive Method Maternal HG B and HCT Levels Ob Episode Information Episode Created Date Number of Fetuses Patient Bloodtype Patient rh Status Prepregnancy Weight lbs Domestic Partner Domestic Partner Phone Father Name Harvest Worker Field Crop Status 02/28/20 20 1 CLOSED Fetus Data First Name Last Name Admitted to NICU Weight (g) Sex Living Outcome Pediatric Complications Fetus ID Race Codes Race Delivery Type 3139 Vaginal Delivery Chon Calculation Initial Chon Date Initial Exam Date Initial Exam Provider Initial Ultrasound Date Last Menstrual Period Date Ultra Sound Weeks Gestation 0 Eighteen To Twenty Week Chon Update Ultra Sound Date Fundal Height At Umbil Quickening Date Ultra Sound Latest Weeks Gestation Final Chon Confirmed By Final Chon Confirmed Date Final Chon Date Ultra Sound Latest Days Gestation 0 0 Menstrual History Last Menstrual Date Menses Monthly On Bcp Conception Prior Menses Frequency Hcg Plus Date Menarche Onset Age Delivery Information Delivery Date Delivery Type Labor Anesthesia Weeks Gestation Incision Type Labor Labor Length Hrs Delivered By Post Complications Tubal Sterilization Discharge Date Comments 6 Ovidio Discharge Information Feeding Method Contraceptive Method Maternal HG B and HCT Levels
--- OUTSIDE RECORDS SUMMARY | 2024-12-05 15:41 | XMS_ITS | Encounter Summary ---
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 Medical [facility] Family & Internal Medicine [address] [address] Ko Bravo DO [address] [place] [id number] documented as of this encounter Visit Diagnoses Not on filedocumented in this encounter Care Teams Optical Mechanic Apprentice Relationship Specialty Start Date End Date Ko Bravo DO [address] [place] [id number] PCP - General FAMILY PRACTICE 12/05/22 documented as of this encounter
--- OUTSIDE RECORDS SUMMARY | 2024-12-05 15:41 | XMS_ITS | Clinical Summary ---
Author Organization [facility] Address [address] [place] [address] Care Team Providers Care Pipe Stem Repairer Name Role Phone Ko Bravo DO Primary Care Provide r Liz Cooney MD Unavailable [phone] Kameron Wynne MD Unavailable [phone] Awa Smith Unavailable [phone] Allergies No known active allergies Medications atorvastatin (LIPITOR) 10 mg tablet Take 1 tablet (10 mg total) by mouth daily 03/05/2019 Active alendronate (FOSAMAX) 70 mg tablet Take 1 tablet (70 mg total) by mouth every 7 days Take in the morning with a full glass of water, on an empty stomach, and do not take anything else by mouth or lie down for the next 30 min. Active polyethylene glycol (MIRALAX) 17 gram/dose bulk powder Take 17 g by mouth daily as needed Active calcium carbonate-vitam in D3 1500 mg (600 mg elemental) -200 units per tablet Take 2 tablets by mouth 2 (two) times a day Active meloxicam (MOBIC) 15 mg tablet Active Hospital, Clinic, or Other Facility Administered Medication Ordered Dose Route Frequency Start Date End Date Status lidocaine (XYLOCAINE) 10 mg/mL (1 %) injection 1 mLIndications:Admi nistration of Local Anesthesia 1 mL One-Time Injection 12/02/2024 12/02/2024 Ended triamcinolone (KENALOG) 40 mg/mL injection 40 mgIndications:Trig coni finger of left thumb 40 mg intra-artic One-Time Injection 12/02/2024 12/02/2024 Ended Active Problems Problem Noted Date Diagnosed Date Trigger finger of left thumb 12/02/2024 Left hand pain 12/02/2024 S/P ORIF (open reduction internal fixation) rene raza 05/24/2024 Assessment & Plan (06/24/2024 1:06 PM NUCLEAR WEAPONS SPECIALIST): Patient's surgical site appears to be healing [...] weeks. Assessment & Plan (06/17/2024 8:32 AM NUCLEAR WEAPONS SPECIALIST): Patient is doing well overall. X-rays were [...] plan. Assessment & Plan (06/10/2024 8:41 AM NUCLEAR WEAPONS SPECIALIST): Patient is doing well overall. X-rays were [...] 09/06/2011 Menopausal symptom 09/06/2011 Urinary incontinence 09/06/2011 Encounters Date Type Department Care Team Description 12/05/2024 2:45 PM CDT Office Visit [facility] at [address] [phone] Maddy Richter NP Dizziness (Primary Dx); Lightheadedness 12/02/2024 11:15 AM CDT Office Visit [facility] Hand Surgery [address] [place] [address] [address] [place] [address] Korey White MD Left hand pain (Primary Dx); Trigger finger of left thumb 12/02/2024 10:15 AM CDT - 12/02/2024 11:59 PM CDT Hospital Encounter [facility] [address] [place] [id number] Left hand pain Discharge Disposition: Discharge to home or self care 10/07/2024 8:00 AM NUCLEAR WEAPONS SPECIALIST Office Visit [facility] Orthopedics and Sports Medicine [address] [place] [address] [address] [place] [address] Pastor Whatley DO S/P ORIF (open reduction internal fixation) fracture (Primary Dx) 10/07/2024 7:48 AM NUCLEAR WEAPONS SPECIALIST - 10/07/2024 11:59 PM NUCLEAR WEAPONS SPECIALIST Hospital Encounter [facility] [address] [place] [phone] S/P ORIF (open reduction internal fixation) fracture Discharge Disposition: Discharge to home or self care from Last 3 Months Immunizations Immunization Administration Dates Next Due Moderna SARS-CoV-2 Monovalent Vaccination (12+ Y RS) 06/20/2021 Surgical History Surgery Date Site/Laterality Comments FL FLUORO GUIDED LUMBAR PUNCTURE 12/13/2018 Right HYSTERECTOMY 08/07/2009 - 08/06/2010 Partial KNEE ARTHROSCOPY 08/07/2000 - 08/06/2001 Right Scope TONSILLECTOMY 08/07/1967 - 08/06/1968 FACET BLOCK LUMBAR SACRAL 1 LEVEL LEFT 05/10/2019 Bilateral FACET BLOCK LUMBAR SACRAL 1 LEVEL LEFT 07/25/2019 Bilateral TRIGGER FINGER RELEASE 11/16/2021 Right RELEASE RIGHT TRIGGER THUMB MOHS SURGERY 08/07/2013 - 08/06/2014 DILATION AND CURETTAGE OF UTERUS 08/07/2006 - 08/06/2007 Medical History Medical History Date Comments Arthritis Osteoarthritis Osteoporosis IBS (irritable bowel syndrome) Basal cell carcinoma of skin of face Basal cell carcinoma of skin of face, LEFTLEG - (Added by TW Conv) Chronic pain disorder LOW BACK Motion sickness PONV (postoperative nausea and vomiting) Vertigo Unknown cause GERD (gastroesophageal reflux disease) Last menstrual period (LMP) > 10 days ago 2009 Prediabetes Per pt. Family History Medical History Relation Name Comments Basal cell carcinoma Brother Janusz Reynolds Colon polyps Brother Janusz Reynolds Heart attack Brother Janusz Reynolds Actinic keratosis Father Amando Reynolds Fami ly history of actinic keratosis - (Added by TW Conv) Arthritis Father Amando Reynolds Family hi story of arthritis - (Added by TW Conv) Basal cell carcinoma Father Amando Reynolds Colon polyps Father Amadno Reynolds Diabetes Father Amando Reynolds Family hi story of diabetes mellitus - (Added by TW Conv) Heart attack Father Amando Reynolds Mitral valve prolapse Father Amando Reynolds Mitral valve prolapse - (Added by TW Conv) Breast cancer Father's Sister breast canc er recurrence at 69 Alcohol abuse Maternal Grandfather Volodymyr Vences Fa shakira history of alcoholism - (Added by TW Conv) Cirrhosis Maternal Grandfather Volodymyr Vences Gout Maternal Grandmother Family history of gout - (Added by TW Conv) Actinic keratosis Mother Mile Reynolds Fami ly history of actinic keratosis - (Added by TW Conv) Arthritis Mother Mile Reynolds Family hi story of arthritis - (Added by TW Conv) Basal cell carcinoma Mother Mile Rooneyire Colon polyps Mother Mile Rooneyire Diabetes Mother Mile Rooneyire Glaucoma Other 1 Glaucoma - (Add ed by TW Conv) Cancer Other 2 Family history of malignant neoplasm - Relation: Grandparent (Added by TW Conv) Glaucoma Other 3 Family history of glaucoma - Relation: Grandmother (Added by TW Conv) Throat cancer Paternal Grandfather histor y of smoking Colon cancer Paternal Grandmother Ovarian cancer Neg Hx Pancreatic cancer Neg Hx Prostate cancer Neg Hx Uterine cancer Neg Hx Relation Name Status Comments Brother Janusz Reynolds Alive Father Amando Reynolds Alive Father's Sister Alive Maternal Grandfather Volodymyr Vences (Age 58 ) Maternal Grandmother (Age 97) Mother iMle Reynolds Alive Other 1 Other 2 Other 3 Paternal Grandfather (Age 72) Paternal Grandmother (Age 97) Son 1 Ovidio Alive Son 2 Josef Alive Social History Tobacco Use Types Packs/Day Years Used Date Smoking Tobacco: Never Smokeless Tobacco: Never Tobacco Cessation:Counseling Given: Not Answered Alcohol Use Standard Drinks/Week Comments Never 0 [...] on file Legal Sex Female 3:35 AM NUCLEAR WEAPONS SPECIALIST Gender Identity Not on file Sexual Orientation Not on file 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 Hyst Last Filed Vital Signs Vital Sign Reading [...] (181 lb) 12/05/2024 2:38 PM CDT Height 167.6 cm (5' 6 ) 06/17/2024 8:01 AM NUCLEAR WEAPONS SPECIALIST Body Mass Index 29.21 06/17/2024 8:01 AM NUCLEAR WEAPONS SPECIALIST Plan of Treatment Health Maintenance Due Date Last Done Comments Hepatitis C Screening 1960 Hepatitis B Screening 10/09/1977 Pneumococcal vaccine 65+ (1 of 1 - PCV) 10/09/2009 Osteoporosis Screening-Bone Density Scan 10/12/2017 10/13/2015 Depression Screening 10/26/2022 10/26/2021 Covid-19 Vaccine (3 - 2023-2 5 season) 2024 11/15/2021, 06/20/2021 Colon Cancer Screening-Colonoscopy 02/16/2025 02/16/2015, 01/01/2015 Well Visit 65+ 03/08/2025 03/08/2024, 11/10/2022 Influenza Vaccine (Season Ended) 2025 05/08/2023, 05/14/2022, 04/17/2021, Additional history exists Breast Cancer Screening-Mammogram 05/09/2025 05/09/2024, 04/26/2023, 04/21/2022, Additional history exists Fall Risk Assessment 05/24/2025 05/24/2024 DTaP/Tdap/Td Vaccine (2 - Td or Tdap) 05/25/2030 05/25/2020, 06/02/2000 Colon Cancer Screening-CT Colonography Discontinued 02/16/2015, 01/01/2015 Colon Cancer Screening-DNA Stool Discontinued 02/17/20 15, 01/01/2015 Colon Cancer Screening-FIT Discontinued 02/16/2015, Colon Cancer Screening-Sigmoidoscopy Discontinued 02/16/2015, 01/01/2015 Zoster Vaccine Completed 06/08/2021, 03/08, 04/15/2015 Cervical Cancer Screening Discontinued 11/10/2022 Medical Devices Implanted Type Area Hotbed Transfer Operator Device Identifier Shelf Expiration Date Model / Serial / Lot Agency [employer] Plate Bone Locking T Shape 8 Hole T2 Left Ankle Foot Baby Sherley 1.1mm Ti [id number] - [id number] Implanted:Qty: 1 on 05/24/2024 by Pastor Whatley DO at [facility] Right: Metatarsal [employer] [id number] / / Bg Lkng Screw 2x09mm Implanted:Qty: 1 on 05/24/2024 by Pastor Whatley DO at [facility] Right: Metatarsal Agency 28 [id number] / / Bg Lkng Screw 2x14mm Implanted:Qty: 1 on 05/24/2024 by Pastor Whatley DO at [facility] Right: Metatarsal Agency 28 [id number] / / Agency 28 [employer] Screw Bone Full Thread Locking Baby Gorilla 2.0x12mm Ti [id number] - [id number] Implanted:Qty: 1 on 05/24/2024 by Pastor Whatley DO at [facility] Right: Metatarsal [employer] [id number] / / Agency 28 [employer] Screw Bone Full Thread Locking Baby Gorilla 2.0x10mm Ti [id number] - [id number] Implanted:Qty: 1 on 05/24/2024 by Pastor Whatley DO at [facility] Right: Metatarsal [employer] [id number] / / Agency [employer] Screw Bone Full Thread Locking Baby Gorilla 2.0x11mm Ti [id number] - [id number] Implanted:Qty: 2 on 05/24/2024 by Pastor Whatley DO at [facility] Right: Metatarsal [employer] [id number] / / Procedures Procedure Name Priority Date/Time Associated Diagnosis Comments KS INJECTION 1 TENDON SHEATH/LIGAMENT APONEUROSIS Routine 12/02/2024 11:15 AM CDT Trigger finger of left thumb XR FOOT RIGHT 3 OR MORE VIEWS Schedule Routine, Read Routine (OP Routine) 10/07/2024 8:07 AM NUCLEAR WEAPONS SPECIALIST S/P ORIF (open reduction internal fixation) fracture KS ARTHROCENTESIS ASPIR&/INJ SMALL JT/BURSA W/O US Routine 10/07/2024 8:00 AM NUCLEAR WEAPONS SPECIALIST S/P ORIF (open reduction internal fixation) fracture SCREENING MAMMOGRAM BILATERAL W AVINASH Schedule Routine, Read Routine (OP Routine) 05/09/2024 2:15 PM CDT Screening mammogram, encounter for PAP AND HIGH RISK HPV, REFLEX TO GENOTYPING Routine 11/10/2022 10:43 AM CDT Well woman exam BONE MINERAL DENSITY 10/13/2015 COLONOSCOPY REPORT 02/16/2015 from Last 3 Months or Most Recently Relevant to Health Maintenance Results * KS INJECTION 1 TENDON SHEATH/LIGAMENT APONEUROSIS (12/02/2024 11:15 AM CDT) Narrative Korey White MD - 12/02/2024 11:15 AM CDT Korey White MD 12/02/2024 1:17 PM Hand / Upper Extremity Arthrocentesis: L thumb A1 Performed by: Korey White MD Authorized by: Korey White MD Consent Given by: Patient Site marked: the procedure site was marked Timeout: prior to procedure the correct patient, procedure, and site was verified Verbal consent obtained?: Yes Written consent obtained?: Yes Indications: Pain Condition: trigger finger Location: Thumb Site: L thumb A1 Prep: patient was prepped using a clean technique Needle Size: 22 G Ultrasound guidance: No Medications Left Thumb Injection: 1 mL lidocaine 10 mg/mL (1 %); 40 mg triamcinolone 40 mg/mL us Korey White MD IN CLINIC/BEDSIDE ORDERA BLES Final Result * XR Foot Right 3+ Vw (10/07/2024 8:07 AM NUCLEAR WEAPONS SPECIALIST) Anatomical Region Laterality Modality Lower Extremities, Foot Right Computed Radiography 10/08/2024 10:5 7 AM NUCLEAR WEAPONS SPECIALIST Narrative 10/08/2024 10:58 AM NUCLEAR WEAPONS SPECIALIST EXAM DESCRIPTION: XR FOOT RIGHT 3 OR MORE VIEWS REASON FOR STUDY: pain Injury/fx 05/20/24, ORIF done 05/24/24 TECHNIQUE: 3 radiographic view(s) of the right foot . COMPARISON: Right foot radiographs 07/08/2024 FINDINGS: BONES/JOINTS: Status post ORIF with plate and screws of the 5th metatarsal. No new acute fracture, malalignment or osseous abnormality. The joint spaces are normal. SOFT TISSUES: Within normal limits. IMPRESSION: Status post ORIF of the 5th metatarsal. No acute osseous abnormality. THIS IS AN ELECTRONICALLY VERIFIED FINAL REPORT 10/08/2024 10:58 AM - Electronically signed by Carolann Wong M.D. FT T: Report ID: [id number] Reading Location: [id number] Procedure Note Carolann Sutton MD - 10/08/2024 EXAM DESCRIPTION: XR FOOT RIGHT 3 OR MORE VIEWS REASON FOR STUDY: pain Injury/fx 05/20/24, ORIF done 05/24/24 TECHNIQUE: 3 radiographic view(s) of the right foot . COMPARISON: Right foot radiographs 07/08/2024 FINDINGS: BONES/JOINTS: Status post ORIF with plate and screws of the 5th metatarsal. No new acute fracture, malalignment or osseous abnormality.The joint spaces are normal. SOFT TISSUES: Within normal limits. IMPRESSION: Status post ORIF of the 5th metatarsal. No acute osseous abnormality. THIS IS AN ELECTRONICALLY VERIFIED FINAL REPORT 10/08/2024 10:58 AM - Electronically signed by Carolann Wong M.D. FT T: Report ID: [id number] Reading Location: [id number] us Pastor Whatley DO IMG XR PROCEDURES Final Result * KS ARTHROCENTESIS ASPIR&/INJ SMALL JT/BURSA W/O US (10/07/2024 8:00 AM NUCLEAR WEAPONS SPECIALIST) Pastor Eid DO - 10/07/2024 8:00 AM NUCLEAR WEAPONS SPECIALIST Pastor Whatley DO 10/08/2024 7:38 AM Foot Injection: R second MTP Performed by: Pastor Whatley DO Authorized by: Pastor Whatley DO Procedure Details: Location: Second toe Site: R second MTP Medications: 40 mg triamcinolone 40 mg/mL Pastor Whatley DO IN CLINIC/BEDSIDE ORDERABLES F inal Result * Screening Mammogram Bilateral W Avinash (05/09/2024 2:15 PM CDT) Anatomical Region Laterality Modality Breast Bilateral Mammography Narrative 05/10/2024 2:43 PM CDT Mammogram Technique: Bilateral Digital Breast Tomosynthesis, Bilateral C-view 2D Screening mammogram. Views obtained: bilateral craniocaudal and bilateral mediolateral oblique. Computer Aided Detection was performed. Mammogram Findings: The present examination has been compared to prior imaging studies performed at [facility] on 04/01/2021, 04/21/2022 and 04/26/2023. There are scattered areas of fibroglandular density. There is no suspicious abnormality in either breast. Impression: There is no mammographic evidence of malignancy. Annual screening mammography is recommended. OVERALL FINAL ASSESSMENT: BI-RADS CATEGORY 1: Negative. Procedure Note Saman Vogt MD - 05/10/2024 Mammogram Technique: Bilateral Digital Breast Tomosynthesis, Bilateral C-view 2D Screening mammogram. Views obtained: bilateral craniocaudal and bilateral mediolateral oblique. Computer Aided Detection was performed. Mammogram Findings: The present examination has been compared to prior imaging studies performed at [facility] on 04/01/2021, 04/21/2022 and 04/26/2023. There are scattered areas of fibroglandular density. There is no suspicious abnormality in either breast. Impression: There is no mammographic evidence of malignancy. Annual screening mammography is recommended. OVERALL FINAL ASSESSMENT: BI-RADS CATEGORY 1: Negative. Self Screening Mammogram IMG MAMMO PROCEDURES Fi nal Result * Pap and High Risk HPV, reflex to Genotyping (11/10/2022 10:43 AM CDT) Thin prep (Pap test) 11/10/2022 10:43 AM CDT 11/11/2022 10:43 AM CDT Narrative PATHOLOGY [facility] - 11/15/2022 2:44 PM CDT [facility] Department of Pathology [address] [place] [id number] Final Report with Addendum Note to Patients: This report may contain a detailed description of human tissue sent by a health care provider to the laboratory for pathologic evaluation. The content of this report is essential for diagnosis and may provide important critical findings. This information may be unfamiliar to patients to review without a medical professional present. It is advised that the patient review this report in the presence of a health care provider who can answer questions and explain the details. Patient Name: SUSIE DANG Address: [address] [place] [address] Gender: F : 1960 (Age: 62) Service: Location: N : [id number] Hospital #: [id number] Patient Type: [facility] SPECIMEN Taken: 11/10/2022 Received: 11/11/2022 Accessioned:: 11/14/2022 Reported: 11/15/2022 Physician(s): Liz Cooney M.D. [facility] Diagnosis: SOURCE OF SPECIMEN SCREENING THIN PREP IMAGED PAP w/ HPV: STATEMENT OF ADEQUACY - Specimen satisfactory for evaluation (vaginal pap) GENERAL CATEGORIZATION: - Negative for intraepithelial lesion or malignancy INTERPRETATION: - Atrophic smear pattern LAURA Johnson(ASCP) Report Electronically Reviewed and Signed Out By JUAN JohnsonASC) 11/15/2022 14:44:21Addenda: HPV Test Interpretation NEGATIVE for types 16, 18, 31, 33, 35, 39, 45, 51, 52, 56, 58, 59, 66 and 68. Test performed utilizing Gen-Probe Aptima assay. LAURA Head(ASCP)Report Electronically Reviewed and Signed Out By LAURA Head(ASC) 11/14/2022 16:07:07 Specimen(s) Received: A: SCREENING THIN PREP IMAGED PAP w/ HPV Clinical History: Menstrual History: Hysterectomy The Pap test is a screening test used to aid in the detection of cervical cancer and its precursors. It should not be the sole means by which malignant and premalignant lesions are diagnosed. Both false negative and false positive results may occur. It also has poor sensitivity for the detection of endometrial lesions and should not be used to evaluate suspected endometrial abnormalities. For these reasons it is most important to obtain Pap tests at regular intervals. The performance characteristics of some immunohistochemical stains, fluorescence in-situ hybridization tests and immunophenotyping by flow cytometry cited in this report (if any) were determined by the Surgical Pathology Department at [facility] as part of an ongoing quality systems specialist program and in compliance with federally mandated regulations drawn from the Clinical Laboratory Improvement Act of 1988 (CLIA '88). Some of these tests rely on the use of analyte specific reagents and are subject to specific labeling requirements by the US Food and Drug Administration. Such diagnostic tests may only be performed in a facility that is certified by the Department of Health and Human Services as a high complexity laboratory under CLIA '88. The FDA has determined that such clearance or approval is not necessary. This test is used for clinical purposes. It should not be regarded as investigational or for research. Nevertheless, federal rules concerning the medical use of analyte specific reagents require that the following disclaimer be attached to the report: This test was developed and its performance characteristics determined by the Surgical Pathology Department [facility]. It has not been cleared or approved by the U. S. Food and Drug Administration. Liz Cooney MD LAB CYTOLOGY ORDERABLES Final Result PATHOLOGY [facility] * BONE MINERAL DENSITY (10/13/2015) Anatomical Region Laterality Modality Radiographic Iliana ging Narrative 10/13/2015 Ordered by an unspecified provider. Historical Provider IMG DXA PROCEDURES Final Result * COLONOSCOPY REPORT (02/16/2015) Anatomical Region Laterality Modality Other Narrative 02/16/2015 Ordered by an unspecified provider. Historical Provider GI PROCEDURE ORDERABLES F inal Result from Last 3 Months or Most Recently Relevant to Health Maintenance Insurance [place]IC[place] AARP Advance Directives For more information, please contact: [phone] Documents on File Type Date Recorded Patient Home Designer Expl anation Power of Pharmacist Hospital 05/22/2024 1:15 PM Care Teams Pipe Stem Repairer Relationship Specialty Start Date End Date Ko Bravo DO [address] [place] [id number] PCP - General Family Medicine 04/26/23 [place] [address] [place] [id number] Consulting Physician Obstetrics and Gynecology 04/26/23 Kameron Wynne MD [address] [place] [address] Referring Physician Neurology 03/07/24 Awa Smith PA [address] [address] Orthopedic Surgery 05/24/24
--- OUTSIDE RECORDS SUMMARY | 2024-12-05 15:41 | XMS_ITS | Referral Summary ---
Author Organization [facility] Address [address] [place] [address] Care Team Providers Care Endoscopic Technician Name Role Phone TheodoraandreiKo funes DO Primary Care Provide r Liz Cooney MD Unavailable [phone] Kameron Wynne MD Unavailable [phone] Awa Smith Unavailable [phone] Encounters Date Type Department Care Team Description 12/05/2024 2:45 PM CDT Office Visit [facility] Medical Group [facility] at [address] [address] Maddy Richter NP Dizziness (Primary Dx); Lightheadedness 12/02/2024 10:15 AM CDT - 12/02/2024 11:59 PM CDT Hospital Encounter [facility] Di[facility] Imaging [address] [place] [phone] Left hand pain Discharge Disposition: Discharge to home or self care 12/02/2024 11:15 AM CDT Office Visit [facility] Medical [facility] [address] [place] [address] [place] [phone] Korey White MD Left hand pain (Primary Dx); Trigger finger of left thumb 10/07/2024 7:48 AM [employer] - 10/07/2024 11:59 PM [employer] Hospital Encounter [facility] Diag Imaging [address] [place] [address] S/P ORIF (open reduction internal fixation) fracture Discharge Disposition: Discharge to home or self care 10/07/2024 8:00 AM [employer] Office Visit [facility] Medical Group Orthopedics and Sports Medicine [address] [facility] [address] [place] [address] Pastor Whatley DO S/P ORIF (open reduction internal fixation) fracture (Primary Dx) from Last 3 Months Allergies No known active allergies Medications atorvastatin [...] 12/02/2024 S/P ORIF (open reduction internal fixation) [facility] luz marina 05/24/2024 Assessment & Plan (06/24/2024 1:06 PM [employer]): Patient's surgical site appears to be healing [...] weeks. Assessment & Plan (06/17/2024 8:32 AM [employer]): Patient is doing well overall. X-rays were [...] plan. Assessment & Plan (06/10/2024 8:41 AM [employer]): Patient is doing well overall. 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 Not on file Not on file Not on file Last Filed Vital Signs Vital Sign Reading [...] cm (5' 6 ) 06/17/2024 8:01 AM [employer] Body Mass Index 29.21 06/17/2024 8:01 AM [employer] Plan of Treatment Not on file Medical Devices Implanted Type Area Name Plate Stamping Machine Operator Device Identifier Shelf Expiration Date Model / Serial / Lot [employer] Plate Bone Locking T Shape 8 Hole T2 Left Ankle Foot Baby Gorilla 1.1mm Ti [id number] - [id number] Implanted:Qty: 1 on 05/24/2024 by Pastor Whatley DO at [facility] Right: Metatarsal [employer] [id number] / / Bg Lkng Screw 2x09mm Implanted:Qty: 1 on 05/24/2024 by Pastor Whatley DO at [facility] Right: Metatarsal [employer] [id number] / / Bg Lkng Screw 2x14mm Implanted:Qty: 1 on 05/24/2024 by Pastor Whatley DO at [facility] Right: Metatarsal [employer] [id number] / / [employer] Screw Bone Full Thread Locking Baby Gorilla 2.0x12mm Ti [id number] - [id number] Implanted:Qty: 1 on 05/24/2024 by Pastor Whatley DO at [facility] Right: Metatarsal [employer] [id number] / / [employer] Screw Bone Full Thread Locking Baby Gorilla 2.0x10mm Ti [id number] - [id number] Implanted:Qty: 1 on 05/24/2024 by Pastor Whatley DO at [facility] Right: Metatarsal [employer] [id number] / / [employer] Screw Bone Full Thread Locking Baby Gorilla 2.0x11mm Ti [id number] - [id number] Implanted:Qty: 2 on 05/24/2024 by Pastor Whatley DO at [facility] Right: Metatarsal [employer] [id number] / / Procedures Procedure Name Priority Date/Time Associated Diagnosis Comments NE INJECTION 1 TENDON SHEATH/LIGAMENT APONEUROSIS Routine 12/02/2024 11:15 AM CDT Trigger finger of left thumb XR FOOT RIGHT 3 OR MORE VIEWS Schedule Routine, Read Routine (OP Routine) 10/07/2024 8:07 AM [employer] S/P ORIF (open reduction internal fixation) fracture NE ARTHROCENTESIS ASPIR&/INJ SMALL JT/BURSA W/O US Routine 10/07/2024 8:00 AM [employer] S/P ORIF (open reduction internal fixation) fracture SCREENING MAMMOGRAM BILATERAL W AVINASH Schedule Routine, Read Routine (OP Routine) 05/09/2024 2:15 PM CDT Screening mammogram, encounter for PAP AND HIGH RISK HPV, REFLEX TO GENOTYPING Routine 11/10/2022 10:43 AM CDT Well woman exam BONE MINERAL DENSITY 10/13/2015 COLONOSCOPY REPORT 02/16/2015 from Last 3 Months or Most Recently Relevant to Health Maintenance Results * NE INJECTION 1 TENDON SHEATH/LIGAMENT APONEUROSIS (12/02/2024 11:15 [...] Foot Right 3+ Vw (10/07/2024 8:07 AM [employer]) Anatomical Region Laterality Modality Lower Extremities, Foot Right Computed Radiography 10/08/2024 10:5 7 AM [employer] Narrative 10/08/2024 10:58 AM [employer] EXAM DESCRIPTION: XR FOOT RIGHT 3 OR [...] Carolann Wong M.D. FT T: Report ID: [id number] Reading Location: [id number] Procedure Note Carolann Sutton MD - 10/08/2024 [...] Carolann Wong M.D. FT T: Report ID: [id number] Reading Location: [id number] us Pastor Whatley DO IMG XR PROCEDURES Final Result * NE ARTHROCENTESIS ASPIR&/INJ SMALL JT/BURSA W/O US (10/07/2024 8:00 AM [employer]) Narrative Pastor Whatley DO - 10/07/2024 8:00 AM [employer] Pastor Whatley DO 10/08/2024 7:38 AM Foot Injection: R second MTP Performed by: Pastor Whatley DO Authorized by: Pastor Whatley DO Procedure Details: Location: Second toe Site: R second MTP Medications: 40 mg triamcinolone 40 mg/mL us Pastor Whatley DO IN CLINIC/BEDSIDE ORDERABLES F [...] compared to prior imaging studies performed at [facility] on 04/01/2021, 04/21/2022 and 04/26/2023. There [...] compared to prior imaging studies performed at [facility] on 04/01/2021, 04/21/2022 and 04/26/2023. There are scattered areas of fibroglandular density. There is no suspicious abnormality in either breast. Impression: There is no mammographic evidence of malignancy. Annual screening mammography is recommended. OVERALL FINAL ASSESSMENT: BI-RADS CATEGORY 1: Negative. us Self Screening Mammogram IMG MAMMO PROCEDURES Fi nal Result * Pap and High Risk HPV, reflex to Genotyping (11/10/2022 10:43 AM CDT) Thin prep (Pap test) 11/10/2022 10:43 AM CDT 11/11/2022 10:43 AM CDT Narrative PATHOLOGY [facility] - 11/15/2022 2:44 PM CDT [facility] Department of Pathology [address] [place], [place] [id number] Final Report with Addendum Note to Patients: [...] and explain the details. Patient Name: SUSIE HIDALGO Address: [address] [place] [address] Gender: F : 1960 (Age: 62) Service: Location: [facility] #: [id number] Patient Type: E SPECIMEN Taken: 11/10/2022 Received: 11/11/2022 Accessioned:: 11/14/2022 Reported: 11/15/2022 Physician(s): Liz Cooney M.D. [facility] Diagnosis: SOURCE OF SPECIMEN SCREENING THIN PREP IMAGED PAP w/ HPV: STATEMENT OF ADEQUACY - Specimen satisfactory for evaluation (vaginal pap) GENERAL CATEGORIZATION: - Negative for intraepithelial lesion or malignancy INTERPRETATION: - Atrophic smear pattern LAURA Johnson(ASCP) Report Electronically Reviewed and Signed Out By LAURA Johnson(ASC) 11/15/2022 14:44:21Addenda: HPV Test Interpretation NEGATIVE for [...] determined by the Surgical Pathology Department at [facility] as part of an ongoing quality tech program and in compliance with federally mandated [...] characteristics determined by the Surgical Pathology Department [facility]. It has not been cleared or approved by the U. S. Food and Drug Administration. Liz Cooney MD LAB CYTOLOGY ORDERABLES Final Result PATHOLOGY [facility] * BONE MINERAL DENSITY (10/13/2015) Anatomical Region Laterality Modality Radiographic Iliana ging Narrative 10/13/2015 Ordered by an unspecified provider. Historical Provider MD REYESG DXA PROCEDURES Final Result * COLONOSCOPY REPORT (02/16/2015) Anatomical Region Laterality Modality Other Narrative 02/16/2015 Ordered by an unspecified provider. Historical Provider GI PROCEDURE ORDERABLES F inal Result from Last 3 Months or Most Recently Relevant to Health Maintenance Insurance CHOICE PRF [place] [facility] [place]PO [place] MEDICARE [facility] Advance Directives For more information, please contact: [phone] Documents on File Type Date Recorded Patient Drug Counselor Expl anation Power of Fly Frame Tender 05/22/2024 1:15 PM Care Teams Endoscopic Technician Relationship Specialty Start Date End Date Ko Bravo DO [address] [place] [address] PCP - General Family Medicine 04/26/23 [place] [address] [place] [address] Consulting Physician Obstetrics and Gynecology 04/26/23 Kameron Wynne MD [address] [place] [address] Referring Physician Neurology 03/07/24 Awa Smith PA [address] [address] Orthopedic Surgery 05/24/24
--- OUTSIDE RECORDS SUMMARY | 2024-12-05 15:42 | XMS_ITS | Clinical Summary ---
Author Organization [facility] Address [facility] [place] [address] Care Team Providers Care Teacher Early Childhood Development Name Role Phone Ko Bravo Miya DICKEY Primary Care Provider + Allergies Active Allergy Reactions Criticality Noted Date Comments Sulfa Antibiotics Other (see comment) Low 8 Medications Calcium Carbonate-Vitamin D (CALCIUM 600 + D OR) Active Multiple Vitamins-Minerals (MULTIVITAMIN ADULTS 50+) Tab Acti ve polyethylene glycol (GLYCOLAX) 17 GM/SCOOP powder A ctive scopolamine (TRANSDERM-SCOP) 1 MG/3DAYS patchIndications:M otion sickness, subsequent encounter,Travel advice encounter Place 1 patch onto the skin every third day. 10 patch 11/03/19 24 Active Additional Information Patient not taking.Reported on 03/06/2024 atovaquone-proguan il (MALARONE) 250-100 MG Tab tabletIndications: Need for malaria prophylaxis,Travel advice encounter Take 1 tablet daily by mouth; start 1-2 days prior to entering a malaria-endemic area, continue throughout the stay, and for 7 days after returning 24 tablet 11/03/19 24 Active Additional Information Patient not taking.Reported on 03/06/2024 alendronate (FOSAMAX) 70 MG tabletIndications: Osteopenia of multiple sites Take 1 tablet (70 mg total) by mouth every 7 days. 12 tablet 1 10/30/19 25 Active atorvastatin (LIPITOR) 10 MG tabletIndications: Hyperlipidemia, unspecified hyperlipidemia type Take 1 tablet (10 mg total) by mouth daily. 90 tablet 2 03/25/20 25 Active meloxicam (MOBIC) 15 MG tabletIndications: Lumbar radiculopathy Take 1 tablet (15 mg total) by mouth daily. 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 Trigger finger of right thumb 11/10/2021 03/17/2023 Basal cell carcinoma (BCC) of skin of face 01/21/2021 03/17/2023 History of colon polyps 01/21/202103/07 Irritable bowel syndrome 12/04/201406/2023 Chondromalacia of right patella 08/27/2014 03/17/2023 Anterior shoulder dislocation 07/01/2014 03/17/2023 Encounters Date Type Department Care Team Description 12/04/2024 MyChart Message Enc [facility] Family & Internal Medicine [address] [address] Ko Bravo DO Dizziness 10/28/2024 Telephone [facility] Family & Internal Medicine [address] [address] Ko Bravo DO Medication Request from Last 3 Months Immunizations Immunization Administration Dates Next Due Abrysvo Respiratory Syncytia l Virus (RSV) 0.5 mL, PF 05/08/2023 Influenza Adult (Generic) 05/08/2023,03/2022,04/17/2021,2018,04/27/2018,05/30/2017 MODERNA COVID-19 BIVALENT (1 2+), MRNA, LNP-S, PF 11/15/2021 MODERNA COVID-19 BIVALENT (6 -11), MRNA, LNP-S, PF 05/28/2022 MODERNA COVID-19 (12+), MRNA , LNP-S, PF, 50 MCG/0.5 ML (SPIKEVAX) 04/29/2023 MODERNA COVID-19 (TIRE INSTALLER DIANNE GABRIELA), MRNA, LNP-S, PF, 50 MCG/ 0.25 ML DOSE 11/15/2021,06/20/2021 MODERNA COVID-19, 6-11 Prima ry (DARK BLUE CAP) (previous 18+ monovalent booster), mRNA, LNP-S,PF, 50 mcg/ 0.50mL dose 06/20/2021,11/13/2020,10/16/2020 Shingrix 06/08/2021,04/03/2021 Td (Generic) 06/02/2000 Tdap (Generic) 05/25/2020 Zoster (Zostavax) 83104 Unt/0.65Ml 04/15/2015 Family History Medical History Relation Comments Heart Disease Brother Hypertension Brother Cancer Father Basal Cell Skin Cancer Diabetes Father Early Hearing Loss Father Heart Disease Father Hypertension Father Arthritis Mother Cancer Mother Chronic Lymphocy tic Leukemia; Basal Cell Skin Cancer Diabetes Mother Early Hearing Loss Mother Cancer Paternal Aunt breast cancer Cancer Paternal Grandfather Polycythemi a Vera Throat cancer Paternal Grandfather Cancer Paternal Grandmother Colon Cance r Vision loss Paternal Grandmother Glaucoma & Macular degeneration Relation Status Comments Brother Father Mother Paternal Aunt Paternal Grandfather Paternal Grandmother Social History Tobacco Use Types Packs/Day Years Used Date Smoking Tobacco: Never Passive Smoke Exposure: Never Smokeless Tobacco: Never Tobacco Cessation:Counseling Given: Not Answered Alcohol Use Standard Drinks/Week Comments Yes 1.7 (1 standard drink = 0.6 oz p ure alcohol) PHQ-2 Answer Date Recorded Patient Health Questionnaire-2 Score 0 08/08/2023 Comments No Sex and Gender Information Value Date Recorded Sex Assigned at Not on file Legal Sex Female 3:53 PM TOWN MARSHAL Gender Identity Not on file Sexual Orientation Not on file Last Filed Vital Signs Vital Sign Reading Time Taken Comments Blood Pressure 134/72 03/06/2024 8:40 AM CDT Man ual Pulse 74 03/06/2024 7:54 AM CDT Temperature 36.4 C (97.5 F) 03/06/2024 7:54 AM CDT Respiratory Rate 16 03/06/2024 7:54 AM CDT Oxygen Saturation 97% 03/04/2024 9:49 AM CDT Inhaled Oxygen Concentration - - Weight 77.6 kg (171 lb) 03/06/2024 7:54 AM CDT Height 167.6 cm (5' 6 ) 03/06/2024 7:54 AM CDT Body Mass Index 27.6 03/06/2024 7:54 AM CDT Plan of Treatment Upcoming Encounters Date Type Department Care Team (Late st Contact Info) Description 12/19/2024 11:20 AM CDT Office Visit [facility] Medical Group Family & Internal Medicine [address] [phone] Ko Bravo, [address] [place] [phone] Health Maintenance Due Date Last Done Comments Colorectal Cancer Screening Colonoscopy (10 Years) 1960 Pneumococcal Vaccine: 50+ Years (1 of 1 - PCV) 10/09/2009 COVID-19 Vaccine ( season) 2024 04/29/2023, 05/28/2022, 11/15/2021, Additional history exists PHQ-2 (Physician Venus) 08/07/2024 08/08/2023 Mammogram Screening 05/09/2026 05/09/2024, 05/09/2024, 04/26/2023, Additional history exists DTaP, Tdap and Td Vaccines (2 - Td or Tdap) 05/25/2030 05/25/2020, 06/02/2000 Zoster Vaccines Completed 06/08/2021, 03/08, 04/15/2015 Dexa Scan (General) Completed 03/15/2023, Hepatitis C Completed 03/29/2023 RSV Immunization or 60+ Years Completed 05/08/2023 Meningococcal B Vaccine Aged Out No l onger eligible based on patient's age to complete this topic Meningococcal Vaccine Aged Out No gage coni eligible based on patient's age to complete this topic RSV Immunizations Under 20 Months Aged Out No longer eligible based on patient's age to complete this topic Procedures Procedure Name Priority Date/Time Associated Diagnosis Comments MAMMOGRAM GENERIC (SCAN ORDER) 05/09/2024 HEPATITIS C ANTIBODY Routine 03/29/2023 8:53 AM CDT Screening for lipid disorders Screening for endocrine, metabolic and immunity disorder Need for hepatitis C screening test Annual physical exam BONE DENSITY GENERIC (SCAN ORDER) 03/15/2023 from Last 3 Months or Most Recently Relevant to Health Maintenance Results * MAMMOGRAM GENERIC (SCAN ORDER) (05/09/2024) Anatomical Region Laterality Modality Other 05/09/2024 [employer] [facility] Scanned SCANNING Final Resu lt * HEPATITIS C ANTIBODY (03/29/2023 8:53 AM CDT) HEPATITIS C AB NON-REACTI VE NON-REACT AREN 03/29/2023 7:30 PM CDT [facility] Comment: ANTIBODIES TO HCV NOT DETECTED. DOES NOT EXCLUDE THE POSSIBILITY OF EXPOSURE TO HCV. 03/29/2023 8:53 AM CDT [employer] Ko Bravo DO LABORATORY Final Re sult [facility] [address] [place] [address], [id number] * BONE DENSITY GENERIC (03/15/2023) Anatomical Region Laterality Modality Other 03/15/2023 [employer] [facility] Scanned SCANNING Final Resu lt from Last 3 Months or Most Recently Relevant to Health Maintenance Insurance MEDICARE Care Teams Teacher Early Childhood Development Relationship Specialty Start Date End Date Ko Bravo DO [address] [place] [address] [id number] PCP - General FAMILY PRACTICE 12/05/22
--- OUTSIDE RECORDS SUMMARY | 2024-12-05 15:42 | XMS_ITS | Encounter Summary ---
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 Gender Identity Not on file Sexual Orientation Not on file documented as of this encounter Plan of Treatment Upcoming Encounters Date Type Department Care Team (Late st Contact Info) Description 12/19/2024 11:20 AM CDT Office Visit [facility] Family & Internal [address] [address] Ko Bravo DO [address] [place] [address] documented as of this encounter Visit Diagnoses Not on filedocumented in this encounter Care Teams Car Barn Laborer Relationship Specialty Start Date End Date Ko Bravo DO [address] [place] [address] PCP - General FAMILY PRACTICE 12/05/22 documented as of this encounter
--- OUTSIDE RECORDS SUMMARY | 2024-12-05 15:42 | XMS_ITS | Clinical Summary ---
Author Organization [facility] Care Team Providers Care Manager [place] Name Role Phone Unavailable Primary Care Provider Unavailabl e Social History Tobacco Use Types Packs/Day Years Used Date Smoking Tobacco: Never Assessed Comments Unknown Sex and Gender Information Value Date Recorded Sex Assigned at Not on file Legal Sex Female 3:48 PM CREPE MAKER Gender Identity Not on file Sexual Orientation Not on file Plan of Treatment Health Maintenance Due Date Last Done Comments Hepatitis C Virus (HCV) Screening 1960 Pap Smear 10/09/1980 Cervical Cancer Screening (CCS) 10/09/1989 HPV/Cotest 10/09/1989 Colonoscopy 10/09/2004 Colorectal Cancer Screening 10/09/2004 Cologuard 10/09/2009 Immunochemical Fecal Occult Blood 10/09/2009 Mammogram 10/09/2009 Pneumococcal Immunization (5 0+ years) (1 of 1 - PCV) 10/09/2009 Zoster Immunization (3 of 3) 05/29/2021, 04/15/2015 Influenza Immunization (#1) 04/07/202404/07, 05/10/2019, 04/27/2018 SARS-COV-2 Immunization ( season) 2024 Respiratory Syncytial Virus (RSV) Immunization (Adult) (1 - 1-dose 75+ series) 10/09/2034 DTaP/Tdap/Td Immunization Discontinued 05/25/2020 TdaP Immunization Completed 05/25/2020 Hepatitis B Immunization Aged Out No longer eligible based on patient's age to complete this topic Meningococcal Immunization (ACWY) Aged Out No longer eligible based on patient's age to complete this topic Pneumococcal Immunization Combined Aged Out No longer eligible based on patient's age to complete this topic Rotavirus Immunization Aged Out No lo nger eligible based on patient's age to complete this topic
--- OUTSIDE RECORDS SUMMARY | 2024-12-05 15:42 | XMS_ITS | Clinical Summary ---
Author Organization [facility] Address [address] [place]: Epic Prelude ADT TANISHA KAUR [address] Care Team Providers Care Heel Stainer Name Role Phone Unavailable Primary Care Provider Unavailabl e Social History Tobacco Use Types Packs/Day Years Used Date Smoking Tobacco: Never Assessed Comments Unknown Sex and Gender Information Value Date Recorded Sex Assigned at Not on file Legal Sex Female 9:42 AM CDT Gender Identity Not on file Sexual Orientation Not on file Plan of Treatment Health Maintenance Due Date Last Done Comments DIABETES ANNUAL FOOT EXAM 10/09/1977 DIABETES ANNUAL RETINAL EXAM 10/09/1977 DIABETES MICROALBUMIN ANNUAL SCREEN 10/09/1977 LDL CHOLESTEROL ANNUAL 10/09/1977 DTAP/TDAP/TD VACCINES (1 - Tdap) 10/09/1978 PNEUMOCOCCAL VACCINE 50+ YEA RS (1 of 2 - PCV) 10/09/1978 FIT-DNA Q 3 years 10/09/2004 FIT/FOBT Q 1 year 10/09/2004 Flex Sig/CT Colonography Q 5 years 10/09/2004 ZOSTER VACCINE (1 of 2) 10/09/2009 BREAST CANCER SCREENING 02/26/2021 02/27/20 20, 02/27/2020, 12/13/2018, Additional history exists DIABETES HBA1C Q 6 MONTHS 03/16/2021 09/16/2020, INFLUENZA VACCINE (#1) 2024 OSTEOPOROSIS SCREENING 08/12/2025 08/12/2020, 2015 COLORECTAL SCREENING 03/06/2030 03/06/2020, 02/17/20 15 Colorectal Cancer Screening 03/06/2030 RSV VACCINE (60+ or ) (1 - 1-dose 75+ series) 10/09/2034
--- OUTSIDE RECORDS SUMMARY | 2024-12-05 15:42 | XMS_ITS | Encounter Summary ---
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 12/05/2024 11:01 AM * Ko Bravo DO - 12/05/2024 10:54 AM CDT If it occurs again, I'd recommend evaluation in ER to ensure no acute pathology. Otherwise, we can talk about at scheduled follow-up. It could be related to BP or vertigo based upon this description. documented in this encounter Plan of Treatment Upcoming Encounters Date Type Department Care Team (Late st Contact Info) Description 12/19/2024 11:20 AM CDT Office Visit [facility] Medical Group Family & Internal Medicine - [address] [phone] Ko Bravo DO [address] [place] [address] documented as of this encounter Visit Diagnoses Not on filedocumented in this encounter Care Teams Gardener Relationship Specialty Start Date End Date Ko Bravo DO [address] [place] [address] PCP - General FAMILY PRACTICE 12/05/22 documented as of this encounter
[2024-12-05 15:48] LABS: Alanine Aminotransferase 26 U/L (6-35); Albumin Level 4.7 g/dL (3.5-5.1); Alkaline Phosphatase 75 U/L (38-126); Anion Gap 10 mmol/L (4-12); Aspartate Amino Transferase 29 U/L (14-36); Bilirubin,Total 0.8 mg/dL (0.2-1.3); Blood Urea Nitrogen 23 mg/dL (7-17); Calcium 9.2 mg/dL (8.4-10.2); Carbon Dioxide 28 mmol/L (22-30); Chloride 103 mmol/L (98-107); Estimated CRCL calculation 60 ml/min; Estimated Glomerular Filt Rate > 60; Glucose 109 mg/dL (65-110); Potassium 3.6 mmol/L (3.4-5.0); Sodium 141 mmol/L (137-145)
[2024-12-05 16:00] VITALS: BP 140/72; PULSE 78; RESP 18; O2SAT 97
--- OUTSIDE RECORDS SUMMARY | 2024-12-05 16:05 | XMS_ITS | Encounter Summary ---
Author Organization [facility] Healthcare Address [address] [place] [address] Care Team Providers Care Chart Clerk Name Role Phone IsraelkellenandreiKo funes Gonzales Primary Care Provide r Liz Cooney MD Unavailable [phone] Kameron Wynne MD Unavailable [phone] Awa Smith Unavailable [phone] Reason for Visit * Reason Comments Dizziness [...] Description 12/05/2024 2:45 PM CDT Office Visit [facility] Medical Group Convenient Care at [address] [phone] Maddy Richter NP [address] [place] [address] [address] [place] [address] Dizziness (Primary Dx); Lightheadedness Social [...] on file Legal Sex Female 3:35 AM STRUCTURAL TEST ENGINEER Gender Identity Not on file Sexual Orientation Not on file 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 Not on file Not [...] Body Mass Index 29.21 06/17/2024 8:01 AM STRUCTURAL TEST ENGINEER documented in this encounter Plan of Treatment Not on file documented as of this encounter Visit Diagnoses Diagnosis Dizziness- Primary Dizziness and giddiness Lightheadedness Dizziness and giddiness documented in this encounter Care Teams Chart Clerk Relationship Specialty Start Date End Date Ko Bravo DO [address] [place] [address] PCP - General Family Medicine 04/26/23 Liz Cooney MD [address] [address] Consulting Physician Obstetrics and Gynecology 04/26/23 Kameron Wynne MD [address] [place] [address] Referring Physician Neurology 03/07/24 Awa Smith PA [address] [facility] [address] [address] Orthopedic Surgery 05/24/24 documented as of this encounter
[2024-12-05 16:06] LABS: Magnesium 2.3 mg/dL (1.6-2.3)
--- OUTSIDE RECORDS SUMMARY | 2024-12-05 16:06 | XMS_ITS | Encounter Summary ---
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 Gender Identity Not on file Sexual Orientation Not on file documented as of this encounter Plan of Treatment Upcoming Encounters Date Type Department Care Team (Late Contact Info) Description 12/19/2024 11:20 AM CDT Office Visit [facility] Medical [facility] Family & Internal Medicine [address] [address] Ko Bravo DO [address] [place] [address] documented as of this encounter Visit Diagnoses Not on filedocumented in this encounter Care Teams Government Auditor Relationship Specialty Start Date End Date Ko Bravo DO [address] [place] [address] PCP - General FAMILY PRACTICE 12/05/22 documented as of this encounter
--- OUTSIDE RECORDS SUMMARY | 2024-12-05 16:06 | XMS_ITS | Clinical Summary ---
Author Organization [facility] Address [facility] [place] [address] Care Team Providers Care Punchboard Assembler Name Role Phone Ko Bravo Miya DICKEY [...] Care Team Description 12/04/2024 MyChart Message Enc [facility] Family & Internal Medicine [address] [address] Ko Bravo DO Dizziness 10/28/2024 Telephone [facility] Family & Internal Medicine [address] [address] Ko Bravo DO Medication Request from Last 3 Months Immunizations Immunization Administration Dates Next Due Abrysvo Respiratory Syncytia l Virus (RSV) 0.5 mL, PF 05/08/2023 Influenza Adult (Generic) 05/08/2023,03/2022,04/17/2021,2018,04/27/2018,05/30/2017 MODERNA COVID-19 BIVALENT (1 2+), MRNA, LNP-S, PF 11/15/2021 MODERNA COVID-19 BIVALENT (6 -11), MRNA, LNP-S, PF 05/28/2022 MODERNA COVID-19 (12+), MRNA , LNP-S, PF, 50 MCG/0.5 ML (SPIKEVAX) 04/29/2023 MODERNA COVID-19 (TECHNOLOGY STRATEGIST DIANNE GABRIELA), MRNA, LNP-S, PF, 50 MCG/ 0.25 ML DOSE 11/15/2021,06/20/2021 MODERNA COVID-19, 6-11 Prima ry (DARK BLUE CAP) (previous 18+ monovalent booster), mRNA, LNP-S,PF, 50 mcg/ 0.50mL dose 06/20/2021,11/13/2020,10/16/2020 Shingrix 06/08/2021,04/03/2021 Td (Generic) 06/02/2000 Tdap (Generic) 05/25/2020 Zoster (Zostavax) [address] Unt/0.65Ml 04/15/2015 Family History Medical History Relation [...] on file 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 Gender Identity Not on file Sexual [...] Description 12/19/2024 11:20 AM CDT Office Visit [facility] Medical Group Family & Internal Medicine [address] [phone] Ko Bravo, [address] [place] [phone] Health Maintenance Due Date Last Done Comments Colorectal Cancer Screening Colonoscopy (10 Years) 1960 Pneumococcal Vaccine: 50+ Years (1 of 1 - PCV) 10/09/2009 COVID-19 Vaccine ( season) 2024 04/29/2023, 05/28/2022, 11/15/2021, Additional history exists PHQ-2 (Physician [place]) 08/07/2024 08/08/2023 Mammogram Screening 05/09/2026 05/09/2024, 05/09/2024, [...] (05/09/2024) Anatomical Region Laterality Modality Other 05/09/2024 [facility] Scanned SCANNING Final Resu lt * HEPATITIS C ANTIBODY (03/29/2023 8:53 AM CDT) HEPATITIS C AB NON-REACTI VE NON-REACT AREN 03/29/2023 7:[address] [facility] Comment: ANTIBODIES TO HCV NOT DETECTED. DOES NOT EXCLUDE THE POSSIBILITY OF EXPOSURE TO HCV. 03/29/2023 8:53 AM CDT [employer] Ko Bravo DO LABORATORY Final Re sult [facility] [address] [place] [address], [id number] * BONE DENSITY GENERIC (03/15/2023) Anatomical Region Laterality Modality Other 03/15/2023 [employer] [facility] Scanned SCANNING Final Resu lt from Last 3 Months or Most Recently Relevant to Health Maintenance Insurance MEDICARE Care Teams Punchboard Assembler Relationship Specialty Start Date End Date Ko Bravo DO [address] [place] [phone] PCP - General FAMILY PRACTICE 12/05/22
--- OUTSIDE RECORDS SUMMARY | 2024-12-05 16:06 | XMS_ITS | Referral Summary ---
Author Organization [facility] Address [address] [place] [address] Care Team Providers Care Linux Solaris Administrator Name Role Phone TheodoraandreiKo funes DO Primary Care Provide r Liz Cooney MD Unavailable [phone] Kameron Wynne MD Unavailable [phone] Awa Smith Unavailable [phone] Encounters Date Type Department Care Team Description 12/05/2024 2:45 PM CDT Office Visit [facility] Medical Group [facility] Care at [address] [phone] Maddy Richter NP Dizziness (Primary Dx); Lightheadedness 12/02/2024 10:15 AM CDT - 12/02/2024 11:59 PM CDT Hospital Encounter [facility] Diag Imaging [address] [place] [address] Left hand pain Discharge Disposition: Discharge to home or self care 12/02/2024 11:15 AM CDT Office Visit [facility] Medical [facility] Hand Surgery [address] [place] [address] [place] [phone] Korey White MD Left hand pain (Primary Dx); Trigger finger of left thumb 10/07/2024 7:48 AM TEAM MEMBER - 10/07/2024 11:59 PM TEAM MEMBER Hospital Encounter [facility] Diag Imaging [address] [place] [address] S/P ORIF (open reduction internal fixation) fracture Discharge Disposition: Discharge to home or self care 10/07/2024 8:00 AM TEAM MEMBER Office Visit [facility] Medical Group Orthopedics and Sports Medicine [address] [facility] [address] [place] [address] Pastor Whatley DO S/P ORIF (open reduction [...] 12/02/2024 S/P ORIF (open reduction internal fixation) [facility] luz marina 05/24/2024 Assessment & Plan (06/24/2024 1:06 PM TEAM MEMBER): Patient's surgical site appears to be healing [...] weeks. Assessment & Plan (06/17/2024 8:32 AM TEAM MEMBER): Patient is doing well overall. X-rays were [...] plan. Assessment & Plan (06/10/2024 8:41 AM TEAM MEMBER): Patient is doing well overall. 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 Not on file Not [...] cm (5' 6 ) 06/17/2024 8:01 AM TEAM MEMBER Body Mass Index 29.21 06/17/2024 8:01 AM TEAM MEMBER Plan of Treatment Not on file Medical Devices Implanted Type Area Window Display Designer Device Identifier Shelf Expiration Date Model / Serial / Lot [employer] Plate Bone Locking T Shape 8 Hole T2 Left Ankle Foot Baby Gorilla 1.1mm Ti [id number] - [id number] Implanted:Qty: 1 on 05/24/2024 by Pastor Whatley DO at [facility] Right: Metatarsal [employer] [id number] / / Bg Lkng Screw 2x09mm Implanted:Qty: 1 on 05/24/2024 by Pastor Whatley DO at [facility] Right: Metatarsal [place] [employer] [id number] / / Bg Lkng Screw 2x14mm Implanted:Qty: 1 on 05/24/2024 by Pastor Whatley DO at [facility] Right: Metatarsal [employer] [id number] / / [employer] Screw Bone Full Thread Locking Baby Gorilla 2.0x12mm Ti [id number] - [id number] Implanted:Qty: 1 on 05/24/2024 by Pastor Whatley DO at [facility] Right: Metatarsal [employer] [id number] / / [employer] Screw Bone Full Thread Locking Baby Gorilla 2.0x10mm Ti [id number] - [id number] Implanted:Qty: 1 on 05/24/2024 by Pastor Whatley DO at [facility] Right: Metatarsal [employer] [id number] / / [employer] Screw Bone Full Thread Locking Baby Gorilla 2.0x11mm Ti [id number] - [id number] Implanted:Qty: 2 on 05/24/2024 by Pastor Whatley DO at [facility] Right: Metatarsal [employer] [id number] / / Procedures Procedure Name Priority Date/Time Associated Diagnosis Comments MD INJECTION 1 TENDON SHEATH/LIGAMENT APONEUROSIS Routine 12/02/2024 11:15 AM CDT Trigger finger of left thumb XR FOOT RIGHT 3 OR MORE VIEWS Schedule Routine, Read Routine (OP Routine) 10/07/2024 8:07 AM TEAM MEMBER S/P ORIF (open reduction internal fixation) fracture MD ARTHROCENTESIS ASPIR&/INJ SMALL JT/BURSA W/O US Routine 10/07/2024 8:00 AM TEAM MEMBER S/P ORIF (open reduction internal fixation) fracture SCREENING MAMMOGRAM BILATERAL W AVINASH Schedule Routine, Read Routine (OP Routine) 05/09/2024 2:15 PM CDT Screening mammogram, encounter for PAP AND HIGH RISK HPV, REFLEX TO GENOTYPING Routine 11/10/2022 10:43 AM CDT Well woman exam BONE MINERAL DENSITY 10/13/2015 COLONOSCOPY REPORT 02/16/2015 from Last 3 Months or Most Recently Relevant to Health Maintenance Results * MD INJECTION 1 TENDON SHEATH/LIGAMENT APONEUROSIS (12/02/2024 11:15 [...] Foot Right 3+ Vw (10/07/2024 8:07 AM TEAM MEMBER) Anatomical Region Laterality Modality Lower Extremities, Foot Right Computed Radiography 10/08/2024 10:5 7 AM TEAM MEMBER Narrative 10/08/2024 10:58 AM TEAM MEMBER EXAM DESCRIPTION: XR FOOT RIGHT 3 OR [...] Carolann Wong M.D. FT T: Report ID: [id number] Reading Location: [id number] Procedure Note Carolann Sutton MD - 10/08/2024 [...] Carolann Wong M.D. FT T: Report ID: [id number] Reading Location: [id number] us Pastor Whatley DO IMG XR PROCEDURES Final Result * MD ARTHROCENTESIS ASPIR&/INJ SMALL JT/BURSA W/O US (10/07/2024 8:00 AM TEAM MEMBER) Narrative Pastor Whatley DO - 10/07/2024 8:00 AM TEAM MEMBER Pastor Whatley DO 10/08/2024 7:38 AM Foot [...] compared to prior imaging studies performed at [facility] on 04/01/2021, 04/21/2022 and 04/26/2023. There are [...] compared to prior imaging studies performed at [facility] on 04/01/2021, 04/21/2022 and 04/26/2023. There are [...] CDT 11/11/2022 10:43 AM CDT Narrative PATHOLOGY [facility] - 11/15/2022 2:44 PM CDT [facility] Department of Pathology [address] [place], [place] [id number] Final Report with Addendum Note to Patients: [...] the details. Patient Name: SUSIE HIDALGO Address: [address] [place] [address] Gender: F : 1960 (Age: 62) Service: Location: [facility] #: [id number] Patient Type: E SPECIMEN Taken: 11/10/2022 Received: 11/11/2022 Accessioned:: 11/14/2022 Reported: 11/15/2022 Physician(s): Liz Cooney M.D. [facility] Diagnosis: SOURCE OF SPECIMEN SCREENING THIN PREP [...] determined by the Surgical Pathology Department at [facility] as part of an ongoing quality inspector program and in compliance with federally mandated [...] determined by the Surgical Pathology Department [facility]. It has not been cleared or approved by the U. S. Food and Drug Administration. Liz Cooney MD LAB CYTOLOGY ORDERABLES Final Result PATHOLOGY [facility] * BONE MINERAL DENSITY (10/13/2015) Anatomical Region [...] Health Maintenance Insurance CHOICE PRF [place] [facility] PPO [place] MED[place] [facility] Advance Directives For more information, please contact: [phone] Documents on File Type Date Recorded Patient Group Leader Wafer Polishing Expl anation Power of Senior Radiation Protection Technician 05/22/2024 1:15 PM Care Teams Linux Solaris Administrator Relationship Specialty Start Date End Date Ko Bravo DO [address] [address] PCP - General Family Medicine 04/26/23 [place] [address] [place] [address] Consulting Physician Obstetrics and Gynecology 04/26/23 Kameron Wynne MD [address] [place] [address] Referring Physician Neurology 03/07/24 Awa Smith PA [address] [address] Orthopedic Surgery 05/24/24
--- OUTSIDE RECORDS SUMMARY | 2024-12-05 16:06 | XMS_ITS | Encounter Summary ---
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 Gender Identity Not on file Sexual Orientation Not on file documented as of this encounter Plan of Treatment Upcoming Encounters Date Type Department Care Team (Late st Contact Info) Description 12/19/2024 11:20 AM CDT Office Visit [facility] Family & Internal [address] [address] Ko Bravo DO [address] [place] [address] documented as of this encounter Visit Diagnoses Not on filedocumented in this encounter Care Teams Disability Attorney Relationship Specialty Start Date End Date Ko Bravo DO [address] [place] [address] PCP - General FAMILY PRACTICE 12/05/22 documented as of this encounter
--- OUTSIDE RECORDS SUMMARY | 2024-12-05 16:06 | XMS_ITS | Encounter Summary ---
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
--- OUTSIDE RECORDS SUMMARY | 2024-12-05 16:06 | XMS_ITS | Encounter Summary ---
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 12/05/2024 11:01 AM * Ko Bravo DO [...] Description 12/19/2024 11:20 AM CDT Office Visit [facility] Medical Group Family & Internal Medicine - [address] [phone] Ko Bravo DO [address] [place] [address] documented as of this encounter Visit Diagnoses Not on filedocumented in this encounter Care Teams Exercise Instruct Relationship Specialty Start Date End Date Ko Bravo DO [address] [place] [address] PCP - General FAMILY PRACTICE 12/05/22 documented as of this encounter
--- OUTSIDE RECORDS SUMMARY | 2024-12-05 16:06 | XMS_ITS | Clinical Summary ---
Author Organization [facility] Address [address] [place] [address] Care Team Providers Care Field Marketing Manager Name Role Phone Ko Bravo DO Primary Care Provide r Liz Cooney MD Unavailable [phone] Kameron Wynne MD Unavailable [phone] Awa Smith Unavailable [phone] Allergies No known active allergies Medications atorvastatin [...] 05/24/2024 Assessment & Plan (06/24/2024 1:06 PM AFRICAN HISTORY PROFESSOR): Patient's surgical site appears to be healing [...] weeks. Assessment & Plan (06/17/2024 8:32 AM AFRICAN HISTORY PROFESSOR): Patient is doing well overall. X-rays were [...] plan. Assessment & Plan (06/10/2024 8:41 AM AFRICAN HISTORY PROFESSOR): Patient is doing well overall. X-rays were [...] Description 12/05/2024 2:45 PM CDT Office Visit [facility] Care at [address] [address] Maddy Richter NP Dizziness (Primary Dx); Lightheadedness 12/02/2024 11:15 AM CDT Office Visit [facility] [address] [place] [address] [address] [place] [address] Korey White MD Left hand pain (Primary Dx); Trigger finger of left thumb 12/02/2024 10:15 AM CDT - 12/02/2024 11:59 PM CDT Hospital Encounter [facility] [address] [place] [address] Left hand pain Discharge Disposition: Discharge to home or self care 10/07/2024 8:00 AM AFRICAN HISTORY PROFESSOR Office Visit [facility] [address] [place] [address] [address] [place] [address] Pastor Whatley DO S/P ORIF (open reduction internal fixation) fracture (Primary Dx) 10/07/2024 7:48 AM AFRICAN HISTORY PROFESSOR - 10/07/2024 11:59 PM AFRICAN HISTORY PROFESSOR Hospital Encounter [facility] [address] [place] [address] S/P ORIF (open reduction internal fixation) fracture [...] carcinoma Father Amando Reynolds Colon polyps Father Amando Reynolds Diabetes Father Amando Reynolds Family hi [...] 58 ) Maternal Grandmother (Age 97) Mother Mile Reynolds Alive Other 1 Other 2 Other [...] on file Legal Sex Female 3:35 AM AFRICAN HISTORY PROFESSOR Gender Identity Not on file Sexual Orientation Not on file 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 Not on file [...] cm (5' 6 ) 06/17/2024 8:01 AM AFRICAN HISTORY PROFESSOR Body Mass Index 29.21 06/17/2024 8:01 AM AFRICAN HISTORY PROFESSOR Plan of Treatment Health Maintenance Due Date [...] Discontinued 11/10/2022 Medical Devices Implanted Type Area Supervisor Steel Division Device Identifier Shelf Expiration Date Model / Serial / Lot [employer] Plate Bone Locking T Shape 8 Hole T2 Left Ankle Foot Baby Sherley 1.1mm Ti [id number] - [id number] Implanted:Qty: 1 on 05/24/2024 by Pastor Whatley DO at [facility] Right: Metatarsal [employer] [id number] / / Bg Lkng Screw 2x09mm Implanted:Qty: 1 on 05/24/2024 by Pastor Whatley DO at [facility] Right: Metatarsal [employer] 28 [id number] / / Bg Lkng Screw 2x14mm Implanted:Qty: 1 on 05/24/2024 by Pastor Whatley DO at [facility] Right: Metatarsal [employer] 28 [id number] [id number] / / [employer] Screw Bone Full Thread Locking Baby Gorilla 2.0x12mm Ti [id number] - [id number] Implanted:Qty: 1 on 05/24/2024 by Pastor Whatley DO at [facility] Right: Metatarsal [employer] [id number] 012 / / [employer] Screw Bone Full Thread Locking Baby Gorilla 2.0x10mm Ti [id number] - [id number] Implanted:Qty: 1 on 05/24/2024 by Pastor Whatley DO at [facility] Right: Metatarsal [employer] [id number] / / [employer] Screw Bone Full Thread Locking Baby Gorilla 2.0x11mm Ti [id number] - [id number] Implanted:Qty: 2 on 05/24/2024 by Pastor Whatley DO at [facility] Right: Metatarsal [employer] [id number] / / Procedures Procedure Name Priority Date/Time Associated Diagnosis Comments OR INJECTION 1 TENDON SHEATH/LIGAMENT APONEUROSIS Routine 12/02/2024 11:15 AM CDT Trigger finger of left thumb XR FOOT RIGHT 3 OR MORE VIEWS Schedule Routine, Read Routine (OP Routine) 10/07/2024 8:07 AM AFRICAN HISTORY PROFESSOR S/P ORIF (open reduction internal fixation) fracture OR ARTHROCENTESIS ASPIR&/INJ SMALL JT/BURSA W/O US Routine 10/07/2024 8:00 AM AFRICAN HISTORY PROFESSOR S/P ORIF (open reduction internal fixation) fracture SCREENING MAMMOGRAM BILATERAL W AVINASH Schedule Routine, Read Routine (OP Routine) 05/09/2024 2:15 PM CDT Screening mammogram, encounter for PAP AND HIGH RISK HPV, REFLEX TO GENOTYPING Routine 11/10/2022 10:43 AM CDT Well woman exam BONE MINERAL DENSITY 10/13/2015 COLONOSCOPY REPORT 02/16/2015 from Last 3 Months or Most Recently Relevant to Health Maintenance Results * OR INJECTION 1 TENDON SHEATH/LIGAMENT APONEUROSIS (12/02/2024 11:15 [...] Foot Right 3+ Vw (10/07/2024 8:07 AM AFRICAN HISTORY PROFESSOR) Anatomical Region Laterality Modality Lower Extremities, Foot Right Computed Radiography 10/08/2024 10:5 7 AM AFRICAN HISTORY PROFESSOR Narrative 10/08/2024 10:58 AM AFRICAN HISTORY PROFESSOR EXAM DESCRIPTION: XR FOOT RIGHT 3 OR [...] Carolann Wong M.D. FT T: Report ID: [id number] Reading Location: [id number] Procedure Note Carolann Sutton MD - 10/08/2024 [...] Carolann Wong M.D. FT T: Report ID: [id number] Reading Location: [id number] us Pastor Whatley DO IMG XR PROCEDURES Final Result * OR ARTHROCENTESIS ASPIR&/INJ SMALL JT/BURSA W/O US (10/07/2024 8:00 AM AFRICAN HISTORY PROFESSOR) Pastor Eid DO - 10/07/2024 8:00 AM AFRICAN HISTORY PROFESSOR Pastor Whatley DO 10/08/2024 7:38 AM Foot [...] compared to prior imaging studies performed at [facility] on 04/01/2021, 04/21/2022 and [...] compared to prior imaging studies performed at [facility] on 04/01/2021, 04/21/2022 and [...] CDT 11/11/2022 10:43 AM CDT Narrative PATHOLOGY [facility] - 11/15/2022 2:44 PM CDT [facility] Department of Pathology [address] [place] [address] Final Report with Addendum Note to [...] the details. Patient Name: SUSIE DANG Address: [address] [place] [address] Gender: F : 1960 (Age: 62) Service: Location: N : [id number] Hospital #: [id number] Patient Type: [facility] SPECIMEN Taken: 11/10/2022 Received: 11/11/2022 Accessioned:: 11/14/2022 Reported: 11/15/2022 Physician(s): Liz Cooney M.D. [facility] Diagnosis: SOURCE OF SPECIMEN SCREENING THIN [...] determined by the Surgical Pathology Department at [facility] as part of an ongoing senior supplier quality engineer program and in compliance with federally mandated [...] characteristics determined by the Surgical Pathology Department [facility]. It has not been cleared or approved by the U. S. Food and Drug Administration. Liz Cooney MD LAB CYTOLOGY ORDERABLES Final Result PATHOLOGY [facility] * BONE MINERAL DENSITY (10/13/2015) Anatomical Region [...] PRF [place] BL CHOICE PRF [place] MEDICARE AARP Advance Directives For more information, please contact: [phone] Documents on File Type Date Recorded Patient School Psychology Professor Expl anation Power of Punchboard Filling Machine Operator 05/22/2024 1:15 PM Care Teams Field Marketing Manager Relationship Specialty Start Date End Date Ko Bravo DO [address] [place] [address] PCP - General Family Medicine 04/26/23 [place] [address] [place] [address] Consulting Physician Obstetrics and Gynecology 04/26/23 Kameron Wynne MD [address] [place] [address] Referring Physician Neurology 03/07/24 Awa Smith PA [address] [address] Orthopedic Surgery 05/24/24
--- OUTSIDE RECORDS SUMMARY | 2024-12-05 16:06 | XMS_ITS ---
Author Organization [facility] Address [address] [place] [address] Care Team Providers Care Muck Miner Name Role Phone Ko Bravo DO Primary Care Provide r Liz Cooney MD Unavailable [phone] Kameron Wynne MD Unavailable [phone] Awa Smith Unavailable [phone] Active Problems Problem Noted Date Diagnosed Date Trigger finger of left thumb 12/02/2024 Left hand pain 12/02/2024 S/P ORIF (open reduction internal fixation) rene raza 05/24/2024 Assessment & Plan (06/24/2024 1:06 PM DENTAL LABORATORY WORKER): Patient's surgical site appears to be healing [...] weeks. Assessment & Plan (06/17/2024 8:32 AM DENTAL LABORATORY WORKER): Patient is doing well overall. X-rays were [...] plan. Assessment & Plan (06/10/2024 8:41 AM DENTAL LABORATORY WORKER): Patient is doing well overall. X-rays were [...]
[2024-12-05] MEDS: SODIUM CHLORIDE 0.9% IV 1,000 ML 999 ML IV CONT (16:07)
[2024-12-05] MEDS: MECLIZINE HCL 25 MG TABLET PO (16:08)
--- OUTSIDE RECORDS SUMMARY | 2024-12-05 16:08 | XMS_ITS | Clinical Summary ---
Author Organization [employer] [facility] Address [address] [place]: Epic Prelude ADT TANISHA KAUR [address] Care Team Providers Care Fitter Helper Name Role Phone Unavailable Primary Care Provider [...]
--- OUTSIDE RECORDS SUMMARY | 2024-12-05 16:08 | XMS_ITS | Continuity of Care Document ---
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 [address] , [address], [place], [address], [place]. tel:[phone] Family History Family Member Type Diagnosis Age At Onset No Information Payers Payer name Insurance type Covered libertarian ID Authoriza tion(s) No Information Social History Type Description Quantity Date Captured Comments Sex Female Smoking Status No Information Chief Complaint And Reason For Visit No Information Reason For Referral Reason For Referral No Information History Of Present Illness Encounter Date Complaint History Of Prese nt Illness No Information Functional Status Date Functional Assessmen t No Information Instructions Date Instruction Additional Infor mation No Information Assessments Type Assessment Date No Information Patient Care Teams Name Effective Dates (start - stop) Status Members No Information
--- OUTSIDE RECORDS SUMMARY | 2024-12-05 16:08 | XMS_ITS | Clinical Summary ---
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
--- NOTE | 2024-12-05 16:11 | ED_ITS ---
HPI - General Adult General Chief complaint: Dizziness Stated complaint: Dizziness, nausea Time Seen by Provider: 12/05/24 15:40 History of Present Illness HPI narrative: Patient is a 64-year-old female who presents emergency department chief complaint of dizziness. Patient reports that she started having symptoms yesterday reports that it is worse when her still to his back does report a rotational component but also feels unsteady on her feet. Patient seen in urgent care and told to come the emergency department for further evaluation. Last known well was yesterday Related Data Home Medications ?Medication ?Instructions ?Recorded ?Confirmed ?Last Taken ?Type esomeprazole magnesium 20 mg 20 mg PO DAILY 09/09/19 11/21/24 03/05/20 History capsule,delayed release (Nexium) multivitamin-minerals no.55 1 tablet PO DAILY 09/09/19 11/21/24 03/05/20 History (Centrum Flavor Burst Adult chewable tablet) calcium 500 mg (as 1 tablet PO BID 02/26/20 11/21/24 03/05/20 History carbonate)-vitamin D3 5 mcg (200 unit) tablet (Calcium 500 + D) Allergies Allergy/AdvReac Type Severity Reaction Status Date / Time No Known Allergies Allergy Verified 12/05/24 15:34 Review of Systems 2 Review of Systems: A 10 system review of systems was completed on the patient and is negative except for what is stated in the HPI. Nursing and ancillary documentation was reviewed. [facility] Past Medical History Medical History Lumbar degenerative disc disease Blurry vision Body mass index [BMI] 29.0-29.9, adult (08/06/18) Contact dermatitis and eczema Eczema Gastroesophageal reflux disease without esophagitis Insomnia, unspecified Irritable bowel syndrome without diarrhea Menopausal and female climacteric states Mixed hyperlipidemia Osteoarthrosis, unspecified whether generalized or localized, forearm Splinter of finger Stress incontinence (female) (male) Upper respiratory tract infection Viral syndrome History of skin cancer Overweight (BMI 25.0-29.9) Osteopenia Gastroesophageal reflux disease Hypercholesterolemia Arthritis Pinched nerve Surgical History Surgical History H/O wisdom tooth extraction History of knee surgery Hx of tonsillectomy History of hysterectomy Family History Family History Father Heart attack Diabetes mellitus Hypertension Heart disease Mother Diabetes mellitus Grandparent Glaucoma Carcinoma of colon Throat cancer Sibling Heart disease Hypertension Other Breast cancer Social History Social History Smoking status: Never smoker Second hand tobacco smoke exposure: No Alcohol intake: current Drinks per week: 2 Alcohol use details: occasionally Substance use: never Substance use type: does not use Lack of Transportation: No Lack of Food: Never True Current Housing: I Have Housing Concerned About Future Housing: No Difficulty Paying Gas/Electric Bills: No Difficulty Paying for Meds: No Currently Unemployed: No Education: Bachelor's Degree Difficulty w/ Childcare or Family Care: No Living arrangements: with family Occupation/Education: retired Spiritual care concerns: No Exam 2 Narrative: GENERAL: Well-appearing, well-nourished, and in no acute distress. HEAD: Normocephalic, atraumatic. EYES: PERRLA and EOMI. ENT: Nares clear, no rhinorrhea or epistaxis. Mucous membranes moist. NECK: Supple. CHEST: Clear to auscultation. No respiratory distress. HEART: Regular rate and rhythm. No murmur heard. Normal peripheral pulses. ABDOMEN: Soft, nontender, nondistended, normal active bowel sounds. EXTREMITIES: Normal range of motion. No edema. SKIN: Warm, dry, no rash. NEURO: No focal deficits. Alert and oriented x3. Positive symptoms when Hallpike to the right PSYCH: Normal mood and affect. Course Vital Signs Vital signs: Vital Signs Temperature 36.7 C 12/05/24 15:30 Pulse Rate 82 12/05/24 15:30 Respiratory Rate 16 12/05/24 15:30 Blood Pressure 165/87 H 12/05/24 15:30 Pulse Oximetry 99 12/05/24 15:30 Oxygen Delivery Room Air 12/05/24 15:30 Temperature 36.7 C 12/05/24 15:30 Pulse Rate 66 12/05/24 18:00 Respiratory Rate 18 12/05/24 18:00 Blood Pressure 153/74 H 12/05/24 18:00 Pulse Oximetry 100 12/05/24 18:00 Oxygen Delivery Room Air 12/05/24 15:30 Medical Decision Making MDM Narrative Medical decision making narrative: Differential diagnosis includes vertigo, posterior CVA, intracranial hemorrhage, Patient is feeling better after receiving IV fluids and p.o. Antivert. She still has some minor symptoms. He was discussed with the patient admission for observation and MRI possible posterior stroke patient is not in the window from a thrombolytics standpoint. Patient states she is feeling better and would like to try outpatient management and will follow up with her primary care provider the patient was instructed to return to the emergency department for symptoms worsen Vital Signs Vital Signs: Vital Signs Temperature 36.7 C 12/05/24 15:30 Pulse Rate 82 12/05/24 15:30 Respiratory Rate 16 12/05/24 15:30 Blood Pressure 165/87 H 12/05/24 15:30 Pulse Oximetry 99 12/05/24 15:30 Oxygen Delivery Room Air 12/05/24 15:30 Temperature 36.7 C 12/05/24 15:30 Pulse Rate 66 12/05/24 18:00 Respiratory Rate 18 12/05/24 18:00 Blood Pressure 153/74 H 12/05/24 18:00 Pulse Oximetry 100 12/05/24 18:00 Oxygen Delivery Room Air 12/05/24 15:30 Lab Data 12/05/24 15:34 12/05/24 15:34 Labs: Lab Results 12/05/24 12/05/24 Range/Units 15:34 16:12 WBC 10.1 H (4.5-10.0) K/mm3 RBC 5.08 (4.2-5.4) M/mm3 Hgb 14.7 (12.0-15.0) g/dL Hct 47.0 (37.0-47.0) % MCV 92.5 (80-100) fl MCH 28.9 (26-34) pg MCHC 31.3 L (32-36) g/dl RDW 13.0 (11.5-14.5) % Plt Count 256 (150-375) k/mm3 MPV 9.8 (7.4-10.4) fl Immature Gran % (Auto) 0.5 (0-0.5) % Neut % (Auto) 63.0 (45.5-73.1) % Lymph % (Auto) 26.0 (18.3-44.2) % [place] % (Auto) 7.8 (2.6-8.5) % Eos % (Auto) 2.1 (0-4.4) % Baso % (Auto) 0.6 (0.2-1.2) % Lymph # (Auto) 2.61 (0.9-3.2) K/mm3 [place] # (Auto) 0.8 H (0.1-0.6) K/mm3 Eos # (Auto) 0.2 (0-0.3) K/mm3 Baso # (Auto) 0.1 (0.0-0.1) K/mm3 Abs Immat Gran (auto) 0.05 H (0.00-0.031) K/mm3 Absolute Neuts (auto) 6.3 (1.3-6.7) K/mm3 Absolute Nucleated RBC 0.000 (0.0-0.012) K/mm3 Nucleated RBC % 0.0 (0.0-0.2) % Sodium 141 (137-145) mmol/L Potassium 3.6 (3.4-5.0) mmol/L Chloride 103 (98-107) mmol/L Carbon Dioxide 28 (22-30) mmol/L Anion Gap 10 (4-12) mmol/L BUN 23 H (7-17) mg/dL Creatinine 0.89 (0.7-1.0) mg/dL Estim Creat Clear Calc 60 ml/min Estimated GFR > 60 (59 - ) Glucose 109 (65-110) mg/dL Calcium 9.2 (8.4-10.2) mg/dL Magnesium 2.3 (1.6-2.3) mg/dL Total Bilirubin 0.8 (0.2-1.3) mg/dL AST 29 (14-36) U/L ALT 26 (6-35) U/L Alkaline Phosphatase 75 (38-126) U/L Troponin I < 0.012 (0.000-0.034) ng/mL Total Protein 8.0 (6.3-8.2) g/dL Albumin 4.7 (3.5-5.1) g/dL Influenza A (RT-PCR) Negative (Negative) Influenza B (RT-PCR) Negative (Negative) RSV (RT-PCR) Negative (Negative) SARS-CoV-2 RNA (RT-PCR) Negative (Negative) Discharge Plan Discharge Clinical Impression: Vertigo Patient Disposition: Home Condition: Stable Instructions: Antibiotic Form, Vertigo (ED) Additional Instructions: If your symptoms worsen please return to the emergency department. Is recommended that you follow-up with your primary care provider if her symptoms are not improving they may need to do additional testing that could include doing an MRI. Patient Language: Singaporean Prescriptions: New meclizine 25 mg tablet 25 mg PO BID PRN (Reason: dizziness) Qty: 20 0RF No Action esomeprazole magnesium [Nexium] 20 mg capsule,delayed release(DR/EC) 20 mg PO DAILY Patient Comments: not taking Centrum Flavor Burst Adult Tablet,Chewable 1 tablet PO DAILY calcium carbonate-vitamin D3 [Calcium 500 + D] 500 mg(1,250mg) -200 unit Tablet 1 tablet PO BID alendronate [Fosamax] 70 mg tablet 70 mg PO WEEKLY Qty: 14 1RF Patient Comments: monday scopolamine base 1 mg over 3 days patch 3 day 1 patch transdermal Q3D PRN (Reason: motion sickness) Qty: 4 0RF atorvastatin 10 mg tablet 10 mg PO DAILY Qty: 90 1RF meloxicam 15 mg tablet 15 mg PO DAILY Qty: 90 1RF Sutab 1.479-0.188- 0.225 gram tablet See Rx Instructions PO PER PKG DIR Qty: 24 0RF Rx Instructions: PO PER PKG DIR Follow-up/Referrals: Lawrence,DO Ko [Primary Care Provider] - Time of Disposition: 18:18
[2024-12-05 16:19] LABS: Troponin I < 0.012 ng/mL (0.000-0.034)
[2024-12-05 16:52] LABS: Influenza A QL RT-PCR Negative (Negative); Influenza B QL RT-PCR Negative (Negative); RSV RNA, RT-PCR Negative (Negative); SARS-CoV-2 RNA PCR Negative (Negative)
[2024-12-05 17:30] VITALS: BP 141/78; PULSE 70; RESP 16; O2SAT 99
[2024-12-05 18:00] VITALS: BP 153/74; PULSE 66; RESP 18; O2SAT 100
== END 2024-12-05 18:24 | disposition home or self-care (01) ==
PROVIDERS: Emergency Medicine; Emergency Provider Emergency Medicine; PCP Student in an Organized Health Care Education/Training Program
DX: R42 Dizziness and giddiness (principal); Z20.822 Contact with and (suspected) exposure to COVID-19; E78.2 Mixed hyperlipidemia; E66.3 Overweight; Z68.29 Body mass index [BMI] 29.0-29.9, adult; K21.9 Gastro-esophageal reflux disease without esophagitis; K58.9 Irritable bowel syndrome, unspecified; M85.80 Other specified disorders of bone density and structure, unspecified site; M19.90 Unspecified osteoarthritis, unspecified site; Z85.828 Personal history of other malignant neoplasm of skin; Z90.710 Acquired absence of both cervix and uterus; Z79.899 Other long term (current) drug therapy; R94.31 Abnormal electrocardiogram [ECG] [EKG]
CPT/HCPCS: 36415; 70450; 71046; 80053; 83735; 84484; 85025; 87637; 93005; 96360; 99284; A9270; J7030

== ENCOUNTER 2024-12-13 10:42 | Outpatient (RCR) | payer MEDICARE, SELFPAY ==
--- NOTE | 2024-12-13 11:45 | OPREHPOC ---
Outpatient Therapy Plan of Care This is a Multidisciplinary Plan of Care that may contain components documented by all disciplines (PT, OT, and ST.) PT Problem 1 PT Problem #1 Knowledge Deficit PT Goal 1 Goal / Goal Update *independent with HEP * good safety awareness with mobility Target Visit 6 PT Problem 2 PT Problem #2 Impaired Vestibular System PT Goal 1 Goal / Goal Update pt not have any dizziness reported with: 1* rolling R 2* rolling L 3* supine to sit 4* standing 360' turn to R x1 rep 5* standing 360' turn to L x1 rep Target Visit 6
--- NOTE | 2024-12-13 11:45 | PTOPEVAL1 ---
Assessment and note entered by Modesta Sparrow, PT Evaluation Information Assessment Status Evaluation ICD-10 Condition Codes (PT) Dizziness and Giddiness R42,BPPV H81.12 Onset December 04, 2024 Subjective Information doing yoga and had dizziness, continued after 2 days went ER; EKG, blood work, CT scan, MRI done--all negative for cardiac issues and cleared- was told she had BPPV have been to ENT in 2023 with history of dizziness about 1 year ago, cleared with maneuvers; have had several episodes in past, lasting a few days no dizziness in the past 2 days; she did the maneuver herself and is better since no change in hearing; have contact and glasses- recent eye exam symptoms: ceiling spinning; walking and veer, nausea and cold sweat; increase: rolling over in bed, supine/sit cleared in 1-2 minutes, with standing lingers and nausea activity: retired, active lifestyle; Reported Pain Level Pain Score 0: Self Report Assessment PT Clinical Summary Caren has the diagnosis of vertigo. She reports doing a maneuver at home and has not had dizziness for the past 2 days. Self assessment with Dizziness Handicap Index rating of 42% limitation in activity level. She has had several issues with vertigo in the past. Risk factor: sinus issues, history of vertigo. Testing today was negative for BPPV of anterior, posterior or horizontal canals and positional changes. Education to pt and her : with handouts issued: general vestibular system, BPPV, Cantrell Daroff maneuver. They asked good questions and voiced understanding of education. Skilled PT services are indicated for vestibular therapy and education of diagnosis & for HEP. Plan of Care Interventions Neuro Re-education,Patient/Caregiver Education, Therapeutic Activities,Therapeutic Exercise PT Services Indicated Yes Treatment Frequency and 1-2x/wk for 6 visits Duration These treatments will address the objective and functional deficits as defined above. The patient will be advanced safely and appropriately in order for the patient to progress towards his/her prior level of function. Additional exercises will be introduced and as well as a comprehensive home exercise program upon discharge, if needed, ?to ensure carryover of functional gains achieved in the clinic. This treatment plan has been reviewed and agreement upon by the patient.
--- NOTE | 2025-01-15 11:51 | OPREHPOC ---
Outpatient Therapy Plan of Care This is a Multidisciplinary Plan of Care that may contain components documented by all disciplines (PT, OT, and ST.) PT Problem 1 PT Problem #1 Knowledge Deficit PT Goal 1 Goal / Goal Update *independent with HEP * good safety awareness with mobility 01-15-25 d/c- stopped attending goals not addressed Target Visit 6 PT Problem 2 PT Problem #2 Impaired Vestibular System PT Goal 1 Goal / Goal Update pt not have any dizziness reported with: 1* rolling R 2* rolling L 3* supine to sit 4* standing 360' turn to R x1 rep 01-15-25 d/c- stopped attending goals not addressed 5* standing 360' turn to L x1 rep Target Visit 6
--- NOTE | 2025-01-15 11:51 | PTOPDC ---
Assessment and note entered by Modesta Sparrow, PT Assessment Status Discharge - Pt Not Present ICD-10 Condition Codes (PT) Dizziness and Giddiness R42,BPPV H81.12 Onset December 04, 2024 Subjective Information pt was not seen this date. Assessment PT Clinical Summary Caren received the PT evaluation and did not return for any further treatment. Discharge PT. The goals were not addressed. Plan of Care PT Services Indicated No
== END 2025-01-16 09:20 | disposition home or self-care (01) ==
LOC: ANHPT 10:42
PROVIDERS: PCP Student in an Organized Health Care Education/Training Program; Visit Provider Student in an Organized Health Care Education/Training Program
DX: R42 Dizziness and giddiness (principal)
CPT/HCPCS: 97161; 97530

== ENCOUNTER 2024-12-17 10:39 | Outpatient (CLI) | payer MEDICARE, SELFPAY ==
--- NOTE | ~2024-12-17 | CT_ITS ---
CT ANGIOGRAM NECK AND HEAD History: Dizziness. Technique: Axial noncontrast imaging of the brain was performed. Serial spiral axial images through t he head and neck were then obtained during arterial phase IV injection of 100 cc of Omnipaque 350. 3- D postprocessing and MIP images were then reconstructed on the remote workstation. Dose reduction link hnique was used on this scan by utilizing automated exposure control and iterative reconstruction link hnique. The dose-length product (DLP) was 1430.09 mGy-cm. COMPARISON: 12/05/2024 CTA neck findings: Bilateral vertebral arteries are patent. Bilateral common carotid, internal carot id, and external carotid arteries are patent. No large vessel occlusion or stenosis. No aneurysm. The proximal right internal carotid artery demonstrates 0% stenosis relative to the normal distal artery lumen diameter. The proximal left internal carotid artery demonstrates 0% stenosis relative to the n ormal distal artery lumen diameter. CTA head findings: Distal vertebral arteries, basilar artery, and posterior cerebral arteries are pat ent. Distal internal carotid arteries, middle cerebral arteries, and anterior cerebral arteries are p atent. No large vessel occlusion or stenosis. No aneurysm. Axial noncontrast imaging of the brain is unremarkable. No acute infarct, intracranial hemorrhage, or mass lesion seen. No mass effect or midline shift. Coronado-white differentiation intact. Ventricles and subarachnoid spaces are unremarkable. Paranasal sinuses and mastoid air cells are clear. Calvarium i ntact. Impression: No significant abnormality. Reviewed, dictated and finalized at [facility]. Impression: No significant abnormality.
--- OUTSIDE RECORDS SUMMARY | 2024-12-17 10:58 | XMS_ITS | Continuity of Care Document ---
Author Organization [facility]. 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 Name Role Phone Unavailable Unavailable Unavailable Unavailable Unavailable Unavailable Unavailable Unavailable Unavailable Unavailable Unavailable Unavailable Problems Injury caused by twisting du e to sudden strenuous movement, initial encounter(X50.1XXA) Onset:16-May-2024 Comments:Onset Date: 20240515 S92.301A(S92.301A) Onset:16-May-2024 Comments:Onset Date: 20240515 Metatarsal bone fracture Onset:15-May-2024 Ivisstgina Luciano DO Sprain of right foot Onset:15-May-2024 Rovenstine Tono L DO Allergies and Adverse Reactions No Known Allergies(Allergy) Onset: 15-May-2024 Medications acetaminophen 325 MG / HYDROcodone bitartrate 5 MG Oral Tablet;1 TABLET 1XED Quantity:1 Rovenstine Tono L DO Start:4-Oux-6584Zoj:15-May-2024 Comments:[id number] ibuprofen 800 MG Oral Tablet;800 MILLIGRAM 1XED Quantity:1 Rovenstine Tono L DO Start:1-Wlm-3305Axr:15-May-2024 Comments:[id number] Administration Instructions:NO MORE THAN 3200MG/24HR Procedures FOOT AP & LAT W/OBLIQ RTResult:[facility] Name: SUSIE DANG [address] Phys: Tono Encarnacion DO [place] [id number] : 1960 Age: 63 Sex: F Acct: [id number] Loc: J.ER PHONE #: [phone] Exam Date: 05/15/2024 Status: REG ER FAX #: [phone] Radiology No: Unit No: [id number] EXAMS: REASON FOR EXAM: CPT CODE: [id number] FOOT AP LAT W/OBLIQ R 5th MT pain p twisting inj 94351 TECHNIQUE - FOOT AP LAT W/OBLIQ RT CLINICAL INFORMATION 5th MT pain p twisting injury. COMPARISON None. FINDINGS/IMPRESSION There is an oblique mildly displaced nonangulated fracture through the fifth metatarsal mid diaphysis with overlying soft tissue swelling. at 1919 Reported and signed by: TIARRA ESCALONA.,MANJEET Braden CC: Tono Encarnacion DO Dictated Date/Time: 05/15/2024 (1918)Technologist: [id number] Transcribed Date/Time: 05/15/2024 (1918)Fence Rider: RIKI Electronic Signature Date/Time: 05/15/2024 (1918)Orig Print D/T: S: 05/15/2024 (1922) BATCH NO: N/A PAGE 1 Signed Report Date:15-May-2024 Status:Completed Social History Smoking Status Smokes tobacco daily Recorded: 15-May-2024 Vital Signs 15-May-2024 19:00 Dfwuohxyrns08.3f Comments:98.3 Pulse82 Comments:82 Respiratory Rate18 Comments:18 O2 SAT98% Comments:98 BP Xlhzqivj752iw[Hg] Comments:17 6 BP Sceszenfy399pq[Hg] Comments:1 10 Height5.5[ft_us] Comments:5 Vliyri42.909kg Comments:80.909 15-May-2024 19:00 BMI28.8kg/m2 Comments:28.8 Encounters Emergency Encounter Reason:RIGHT FOOT PAIN , FELL OVER CURB. Encounter Diagnosis:Overexertion from prolonged static or awkward postures, initial encounter,Displaced fracture of fifth metatarsal bone, right foot, initial encounter for closed fracture 15-May-2024 18:44Xb9-Jkd-3480 20:42 [facility] [place] Discharge Disposition:Discharged to home or self care (routine discharge) Shashank Luciano DO-15-May-2024 [facility] ([facility])EMERGENCY PROVIDER REPORTREPORT#:[id number] REPORT STATUS: SignedDATE:05/15/24 TIME: ATIENT: SUSIE DANG UNIT #: [id number]#: [id number] ROOM/BED:AGE: 63 SEX: F PCP PHYS: No Primary or Family PhysicianSERVICE AUTHOR: Tono Encarnacion REP SRV TM: 190* ALL edits or amendments must be made on the electronic/computer document *HPI-General IllnessFree Text HPI NotesFree Text HPI Olnea50-bqub-rwu female who presents with a right foot [...] toldotherwise by Ortho.Patient visiting family here (from [facility]). Plans to f/u w Ortho in [place] [facility] [facility] whenthey return. States she will coordinate [...] PO Q8H PRN PRN pain #30 TABHYDROcodone/ACETAMINOPHEN ([place] 5-325) 1 TAB PO Q4HR PRN PRN pain HYDROcodone/ACETAMINOPHEN (Vernon 5-325) 1 TAB PO Q4HR PRN PRN pain #10 TABPatient Instructions ED Fracture, FootAdditional InstructionsFollow up with your local Orthopedic doctor [place] next week fordefinitive care of your foot.Do not apply any weight to your right foot. Use crutches for getting arounduntil you see Ortho.You may take Ibuprofen 800mg every 8 hours as needed for painReferralsProvider Referral: No Primary or Family PhysicianDeparture FormsAdditional Information/NoticeSaint [facility] at 2022RPT #: [id number] OF REPORT Plan of Treatment Follow up with your local Orthopedic doctor in [place] next week for definitive care of your [...]
--- OUTSIDE RECORDS SUMMARY | 2024-12-17 10:58 | XMS_ITS | Clinical Summary ---
Author Organization [facility] Address [address] [place] [address] Care Team Providers Care Take Up Operator Name Role Phone Ko Bravo DO Primary Care Provide r Liz Cooney MD Unavailable Kameron Wynne MD Unavailable [phone] Awa Smith Unavailable [phone] Allergies No known active allergies Medications atorvastatin [...] 05/24/2024 Assessment & Plan (06/24/2024 1:06 PM HEATER PLANER OPERATOR): Patient's surgical site appears to be healing [...] weeks. Assessment & Plan (06/17/2024 8:32 AM HEATER PLANER OPERATOR): Patient is doing well overall. X-rays were [...] plan. Assessment & Plan (06/10/2024 8:41 AM HEATER PLANER OPERATOR): Patient is doing well overall. X-rays were [...] 12/05/2024 2:45 PM CDT Office Visit [facility] Care at [address] [address] Maddy Richter NP Dizziness (Primary Dx); Lightheadedness 12/02/2024 11:15 AM CDT Office Visit [facility] Hand Surgery [address] [place] [address] [address] [place] [address] Korey Holland MD Left hand pain (Primary Dx); Trigger finger of left thumb 12/02/2024 10:15 AM CDT - 12/02/2024 11:59 PM CDT Hospital Encounter [facility] [address] [place] [address] Left hand pain Discharge Disposition: Discharge to home or self care 10/07/2024 8:00 AM HEATER PLANER OPERATOR Office Visit [facility] Orthopedics and Sports Medicine [address] [place] [address] [address] [place] [address] Pastor Whatley DO S/P ORIF (open reduction internal fixation) fracture (Primary Dx) 10/07/2024 7:48 AM HEATER PLANER OPERATOR - 10/07/2024 11:59 PM HEATER PLANER OPERATOR Hospital Encounter [facility] [address] [place] [address] S/P ORIF (open reduction internal fixation) fracture [...] on file Legal Sex Female 3:35 AM HEATER PLANER OPERATOR Gender Identity Not on file Sexual Orientation Not on file 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 Not on file Not on file Not [...] cm (5' 6 ) 06/17/2024 8:01 AM HEATER PLANER OPERATOR Body Mass Index 29.21 06/17/2024 8:01 AM HEATER PLANER OPERATOR Plan of Treatment Health Maintenance Due Date [...] Discontinued 11/10/2022 Medical Devices Implanted Type Area Workplace Trainer And Assessor Device Identifier Shelf Expiration Date Model / Serial / Lot [employer] Plate Bone Locking T Shape 8 Hole T2 Left Ankle Foot Baby Sherley 1.1mm Ti [id number] - [id number] Implanted:Qty: 1 on 05/24/2024 by Pastor Whatley DO at [facility] Right: Metatarsal [employer] [id number] / / Bg Lkng Screw 2x09mm Implanted:Qty: 1 on 05/24/2024 by Pastor Whatley DO at [facility] Right: Metatarsal [employer] [id number] / / Bg Lkng Screw 2x14mm Implanted:Qty: 1 on 05/24/2024 by Pastor Whatley DO at [facility] Right: Metatarsal [employer] [id number] 014 / / [employer] Screw Bone Full Thread Locking Baby Gorilla 2.0x12mm Ti [id number] - [id number] Implanted:Qty: 1 on 05/24/2024 by Pastor Whatley DO at [facility] Right: Metatarsal [employer] [id number] 012 / / [employer] Screw Bone Full Thread Locking Baby Gorilla 2.0x10mm Ti [id number] - [id number] Implanted:Qty: 1 on 05/24/2024 by Pastor Whatley DO at [facility] Right: Metatarsal [employer] [id number] 010 / / [employer] Screw Bone Full Thread Locking Baby Gorilla 2.0x11mm Ti [id number] - [id number] Implanted:Qty: 2 on 05/24/2024 by Pastor Whatley DO at [facility] Right: Metatarsal [employer] [id number] [id number] / / Procedures Procedure Name Priority Date/Time Associated Diagnosis Comments MS INJECTION 1 TENDON SHEATH/LIGAMENT APONEUROSIS Routine 12/02/2024 11:15 AM CDT Trigger finger of left thumb XR HAND LEFT 3 OR MORE VIEWS Schedule Routine, Read Routine (OP Routine) 12/02/2024 10:18 AM CDT Left hand pain XR FOOT RIGHT 3 OR MORE VIEWS Schedule Routine, Read Routine (OP Routine) 10/07/2024 8:07 AM HEATER PLANER OPERATOR S/P ORIF (open reduction internal fixation) fracture MS ARTHROCENTESIS ASPIR&/INJ SMALL JT/BURSA W/O US Routine 10/07/2024 8:00 AM HEATER PLANER OPERATOR S/P ORIF (open reduction internal fixation) fracture SCREENING MAMMOGRAM BILATERAL W AVINASH Schedule Routine, Read Routine (OP Routine) 05/09/2024 2:15 PM CDT Screening mammogram, encounter for PAP AND HIGH RISK HPV, REFLEX TO GENOTYPING Routine 11/10/2022 10:43 AM CDT Well woman exam BONE MINERAL DENSITY 10/13/2015 COLONOSCOPY REPORT 02/16/2015 from Last 3 Months or Most Recently Relevant to Health Maintenance Results * MS INJECTION 1 TENDON SHEATH/LIGAMENT APONEUROSIS (12/02/2024 11:15 AM CDT) Narrative Korey Holland MD - 12/02/2024 11:15 AM CDT Korey Holland MD 12/02/2024 1:17 PM Hand / Upper Extremity Arthrocentesis: L thumb A1 Performed by: Korey Holland MD Authorized by: Korey Holland MD Consent Given by: Patient Site marked: [...] (1 %); 40 mg triamcinolone 40 mg/mL Korey Holland MD IN CLINIC/BEDSIDE ORDERA BLES Final Result * XR Hand Left 3 or More Views (12/02/2024 10:18 AM CDT) Anatomical Region Laterality Modality Upper Extremities, Hand Left Computed Radiography 12/11/2024 6:06 AM CDT Narrative 12/11/2024 6:06 AM CDT EXAM DESCRIPTION: XR HAND LEFT 3 OR MORE VIEWS REASON FOR STUDY: Left hand pain TECHNIQUE: AP lateral and oblique radiographic view(s) of the left hand . COMPARISON: None FINDINGS: BONES/JOINTS: There is no acute fracture, malalignment or osseous abnormality. The joint spaces are normal. SOFT TISSUES: Within normal limits. IMPRESSION: No acute osseous abnormality. THIS IS AN ELECTRONICALLY VERIFIED FINAL REPORT 12/11/2024 6:06 AM - Electronically signed by Korey Holland T: Report ID: [id number] Reading Location: [place] [address] Procedure Note Korey Holland MD - 12/11/2024 EXAM DESCRIPTION: XR HAND LEFT 3 OR MORE VIEWS REASON FOR STUDY: Left hand pain TECHNIQUE: AP lateral and oblique radiographic view(s) of the left hand. COMPARISON: None FINDINGS: BONES/JOINTS: There is no acute fracture, malalignment orosseous abnormality. The joint spaces are normal. SOFT TISSUES: Within normal limits. IMPRESSION: No acute osseous abnormality. THIS IS AN ELECTRONICALLY VERIFIED FINAL REPORT 12/11/2024 6:06 AM - Electronically signed by Korey Holland T: Report ID: [id number] Reading Location: [place] [address] Korey Holland MD IMG XR PROCEDURES Final Result * XR Foot Right 3+ Vw (10/07/2024 8:07 AM HEATER PLANER OPERATOR) Anatomical Region Laterality Modality Lower Extremities, Foot Right Computed Radiography 10/08/2024 10:5 7 AM HEATER PLANER OPERATOR Narrative 10/08/2024 10:58 AM HEATER PLANER OPERATOR EXAM DESCRIPTION: XR FOOT RIGHT 3 OR [...] Carolann Wong M.D. FT T: Report ID: [id number] Reading Location: [id number] Procedure Note Carolann Sutton MD - 10/08/2024 [...] Carolann Wong M.D. FT T: Report ID: [id number] Reading Location: [place] [address] us Pastor Whatley DO IMG XR PROCEDURES Final Result * MS ARTHROCENTESIS ASPIR&/INJ SMALL JT/BURSA W/O US (10/07/2024 8:00 AM HEATER PLANER OPERATOR) Narrative Pastor Whatley DO - 10/07/2024 8:00 AM HEATER PLANER OPERATOR Pastor Whatley DO 10/08/2024 7:38 AM Foot Injection: R second MTP Performed by: Pastor Whatley DO Authorized by: Pastor Whatley DO Procedure Details: Location: Second toe Site: R second MTP Medications: 40 mg triamcinolone 40 mg/mL us Pastor Wiechert DO IN CLINIC/BEDSIDE ORDERABLES F inal Result [...] compared to prior imaging studies performed at [facility] on 04/01/2021, 04/21/2022 and 04/26/2023. There [...] compared to prior imaging studies performed at [facility] on 04/01/2021, 04/21/2022 and 04/26/2023. [...] CDT 11/11/2022 10:43 AM CDT Narrative PATHOLOGY [facility] - 11/15/2022 2:44 PM CDT [facility] Department of Pathology [address] [place] [id number] Final Report with Addendum Note to [...] the details. Patient Name: SUSIE DANG Address: [address] [place] [address] Gender: F : 1960 (Age: 62) Service: Location: N : [id number] [facility] #: [id number] Patient Type: [facility] SPECIMEN Taken: 11/10/2022 Received: 11/11/2022 Accessioned:: 11/14/2022 Reported: 11/15/2022 Physician(s): Liz Cooney M.D. [facility] Diagnosis: SOURCE OF SPECIMEN SCREENING THIN PREP [...] determined by the Surgical Pathology Department at [facility] as part of an ongoing quality control systems manager program and in compliance with federally mandated [...] characteristics determined by the Surgical Pathology Department [facility]. It has not been cleared or approved by the U. S. Food and Drug Administration. Liz Cooney MD LAB CYTOLOGY ORDERABLES Final Result PATHOLOGY [facility] * BONE MINERAL DENSITY (10/13/2015) Anatomical [...] Maintenance Insurance [place] [facility] Advance Directives For more information, please contact: [phone] Documents on File Type Date Recorded Patient Patient Educator Expl anation Power of Checker/Stocker 05/22/2024 1:15 PM Care Teams Take Up Operator Relationship Specialty Start Date End Date Ko Bravo DO [address] [place] [address] PCP - General Family Medicine 04/26/23 Liz Cooney MD [address] [place] [address] Consulting Physician Obstetrics and Gynecology 04/26/23 Kameron Wynne MD [address] [place] [address] Referring Physician Neurology 03/07/24 Awa Smith PA [address] [address] Orthopedic Surgery 05/24/24
--- OUTSIDE RECORDS SUMMARY | 2024-12-17 10:58 | XMS_ITS | Patient Health Record ---
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) Active confirmed Vital Signs Oximetry 99 % 03/26/2024 Blood pressure diastolic 85 mm Hg 03/26/2024 Height 66 in 03/26/2024 Blood pressure systolic 137 mm Hg 03/26/2024 Weight 179 lbs 03/26/2024 BMI 28.89 kg/m2 03/26/2024 Encounters Encounter Location Date Provider Diagnosis [facility] [address] [place] [address] 03/26/2024 Mitch Blackman Ocular pain, unspecified eye [...] Insured Coverage Start Date Coverage End Date [facility] [address] [place] [address] [id number] Caren Hidalgo Self - patient is the insured Medical (General) History Surgical History Surgery Date(Month/Year) Tonsillectomy 1968 hysterectomy 2009
--- OUTSIDE RECORDS SUMMARY | 2024-12-17 10:58 | XMS_ITS | Clinical Summary ---
Author Organization [facility] Address Formerly [facility], [facility] [place] [address] Care Team Providers Care Break Off Worker Name Role Phone Ian Diaz Miya DICKEY Primary Care Provider + Allergies No known active allergies Medications Multiple Vitamins-Minerals (MULTIVITAMIN ADULTS 50+) Tab Acti ve polyethylene glycol (GLYCOLAX) 17 GM/SCOOP powder Active scopolamine (TRANSDERM-SCOP) 1 MG/3DAYS patchIndications: Motion sickness, subsequent encounter,Travel advice encounter Place 1 patch onto the skin every third day. 10 patch 11/03/19 24 Active alendronate (FOSAMAX) 70 MG tabletIndications :Osteopenia of multiple sites Take 1 tablet (70 mg total) by mouth every 7 days. 12 tablet 1 10/30/19 25 Active atorvastatin (LIPITOR) 10 MG tabletIndications :Hyperlipidemia, unspecified hyperlipidemia type Take 1 tablet (10 mg total) by mouth daily. 90 tablet 2 10/30/19 25 Active meloxicam (MOBIC) 15 MG tabletIndications :Lumbar radiculopathy Take 1 tablet (15 mg total) by mouth daily. 90 tablet 2 10/30/19 25 Active SUTAB 2833-623-270 MG Tab follow package directions 09/02/19 25 Active meclizine (ANTIVERT) 25 MG tablet Take 1 tablet (25 mg total) by mouth. 12/06/19 25 Active Calcium Carb-Cholecalcife rol (CALCIUM HIGH POTENCY/VITAMIN D) 600-5 MG-MCG Tab Take 2 tablets by mouth 2 (two) times daily. Active Calcium Carbonate-Vitamin D (CALCIUM 600 + D OR) 05/02/ 2025 Discontinued atovaquone-progua nil (MALARONE) 250-100 MG Tab tabletIndications :Need for malaria prophylaxis,Palomo gasca advice encounter Take 1 tablet daily by mouth; start 1-2 days prior to entering a malaria-endem ic area, continue throughout the stay, and for 7 days after returning 24 tablet 11/03/19 24 2024 Discontinued Active Problems Problem Noted Date Diagnosed Date [...] Encounters Date Type Department Care Team Description 12/12/2024 Results Follow-Up [facility] [address] [phone] Ian Diaz, DO MRI BRAIN WWO CON 12/11/2024 8:25 AM CDT - 12/11/2024 11:59 PM CDT Hospital En[place] [facility] [place] [address] [place] [address] Ian Diaz, DO Discharge Disposition: Home or Self Care (Routine Discharge) 12/11/2024 Travel 12/09/2024 Telephone [facility] [address] [phone] Ian Diaz, DO Question 12/06/2024 1:20 PM CDT Telemedicine [facility] [address] [phone] Ian Diaz DO ER F/U 12/06/2024 Travel 12/05/2024 Scan HEALTH INFO SRVCS Scanned, Doc Med Group Image (SCAN); Lab (SCAN); CT (SCAN) 12/04/2024 MyChart Message Enc [facility] [address] [phone] Ian Diaz DO Dizziness 10/28/2024 Telephone [facility] & Internal [address] [phone] Ian Diaz DO Medication Request from Last 3 Months Immunizations Immunization Administration Dates Next Due Abrysvo Respiratory Syncytia l Virus (RSV) 0.5 mL, PF 05/08/2023 Influenza Adult (Generic) 05/08/2023,03/2022,04/17/2021,2018,04/27/2018,05/30/2017 MODERNA COVID-19 BIVALENT (1 2+), MRNA, LNP-S, PF 11/15/2021 MODERNA COVID-19 BIVALENT (6 -11), MRNA, LNP-S, PF 05/28/2022 MODERNA COVID-19 (12+), MRNA , LNP-S, PF, 50 MCG/0.5 ML (SPIKEVAX) 04/29/2023 MODERNA COVID-19 (ORTHODONTIST DIANNE GABRIELA), MRNA, LNP-S, PF, 50 MCG/ 0.25 ML DOSE 11/15/2021,06/20/2021 MODERNA COVID-19, 6-11 Prima ry (DARK BLUE CAP) (previous 18+ monovalent booster), mRNA, LNP-S,PF, 50 mcg/ 0.50mL dose 06/20/2021,11/13/2020,10/16/2020 Shingrix 06/08/2021,04/03/2021 Td (Generic) 06/02/2000 Tdap (Generic) 05/25/2020 Zoster (Zostavax) 65548 Unt/0.65Ml 04/15/2015 Family History Medical History Relation [...] Date Recorded Patient Health Questionnaire-2 Score 0 12/06/2024 Comments No Sex and Gender Information Value Date Recorded Sex Assigned at Female 12/06/2024 1:20 PM CDT Legal Sex Female 3:53 PM MARKETING TECHNOLOGIST Gender Identity Female 12/06/2024 1:20 PM CDT Sexual Orientation Not on file Travel History Travel Start Travel End [place] 10/30/2024 11/26/2024 Last Filed Vital Signs Vital Sign Reading [...] Care Team (Late st Contact Info) Description 12/27/2024 10:00 AM CDT Office Visit [facility] Medical Group Family & Internal Medicine [address] [phone] Ian Diaz, DO [address] [place] [address] 02/05/2025 8:40 AM CDT Office Visit [facility] Medical Group Family & Internal Medicine [facility] [address] [place] [phone] Ian Diaz, DO [address] [place] [address] Health Maintenance Due Date Last Done Comments Colorectal Cancer Screening Colonoscopy (10 Years) 1960 Pneumococcal Vaccine: 50+ Years (1 of 1 - PCV) 10/09/2009 COVID-19 Vaccine ( season) 2024 04/29/2023, 05/28/2022, 11/15/2021, Additional history exists Mammogram Screening 05/09/2026 05/09/2024, 05/09/2024, 04/26/2023, Additional history exists DTaP, Tdap and Td Vaccines (2 - Td or Tdap) 05/25/2030 05/25/2020, 06/02/2000 Zoster Vaccines Completed 06/08/2021, 03/08, 04/15/2015 Dexa Scan (General) Completed 03/15/2023, Hepatitis C Completed 03/29/2023 RSV Immunization or 60+ Years Completed 05/08/2023 PHQ-2 (Physician [place]) Completed 12/06/2024 Meningococcal B Vaccine Aged Out No l onger eligible based on patient's age to complete this topic Meningococcal Vaccine Aged Out No gage coni eligible based on patient's age to complete this topic RSV Immunizations Under 20 Months Aged Out No longer eligible based on patient's age to complete this topic Procedures Procedure Name Priority Date/Time Associated Diagnosis Comments MRI BRAIN WWO CON BRYAN 12/11/2024 9:2 9 AM CDT Dizziness Stroke-like symptoms Vertigo CT GENERIC 12/05/2024 OUTSIDE LAB (SCAN ORDER) 12/05/2024 OUTSIDE LAB (SCAN ORDER) 12/05/2024 OUTSIDE LAB (SCAN ORDER) 12/05/2024 IMAGE GENERIC 12/05/2024 MAMMOGRAM GENERIC (SCAN ORDER) 05/09/2024 HEPATITIS C ANTIBODY Routine 03/29/2023 8:53 AM CDT Screening for lipid disorders Screening for endocrine, metabolic and immunity disorder Need for hepatitis C screening test Annual physical exam BONE DENSITY GENERIC (SCAN ORDER) 03/15/2023 from Last 3 Months or Most Recently Relevant to Health Maintenance Results * MRI BRAIN WWO CON (12/11/2024 9:29 AM CDT) Anatomical Region Laterality Modality Head Magnetic Resonan ce 12/12/2024 7:04 AM CDT Impressions 12/12/2024 8:14 AM CDT IMPRESSION: Normal appearance of the brain. Ordered By: IAN DIAZ Interpreted By: Flavio Cardoso MD, 12/12/2024 7:04 AM Narrative 12/12/2024 8:14 AM CDT [place] [id number] [facility] [place] [address] Examination: MRI BRAIN O CON, 12/11/2024 8:36 AM. Technique: Multiplanar multisequence magnetic resonance images of the brain were obtained before and after the administration of 17 mL of Dotarem injected through the right antecubital fossa IV, without evidence of an adverse reaction. Clinical history: Dizziness and giddiness, new onset dizziness Comparison: None available Findings: There is no restricted diffusion to suggest an acute infarction. No hemorrhagic focus of susceptibility. Preserved barney-white matter differentiation. No abnormally enhancing intracranial parenchyma or mass. The sellar, callosal, pineal, and craniovertebral junction regions appear within normal limits. There is no extra-axial fluid collection. The ventricles are normal in size. The basal cisterns appear normal. The proximal intracranial arterial flow voids have a normal appearance. Orbital contents appear normal. Paranasal sinuses are otherwise well aerated. Mucous retention cyst within a posterior right ethmoidal air cell. Mastoid air cells are well aerated. Procedure Note Flavio Cardoso MD - 12/12/2024 [facility] [address] [place] [address] Examination: MRI BRAIN OLLIE ESQUEDA, 12/11/2024 8:36 AM. Technique: Multiplanar multisequence magnetic resonance images of thebrain were obtained before and after the administration of 17 mL ofDotarem injected through the right antecubital fossa IV, without evidenceof an adverse reaction. Clinical history: Dizziness and giddiness, new onset dizziness Comparison: None available Findings: There is no restricted diffusion to suggest an acute infarction. Nohemorrhagic focus of susceptibility. Preserved barney-white matterdifferentiation. No abnormally enhancing intracranial parenchyma or mass.The sellar, callosal, pineal, and craniovertebral junction regions appearwithin normal limits. There is no extra-axial fluid collection. The ventricles are normal insize. The basal cisterns appear normal. The proximal intracranial arterialflow voids have a normal appearance. Orbital contents appear normal.Paranasal sinuses are otherwise well aerated. Mucous retention cyst withina posterior right ethmoidal air cell. Mastoid air cells are well aerated. IMPRESSION: Normal appearance of the brain. Ordered By: IAN DIAZ Interpreted By: Flavio Cardoso MD, 12/12/2024 7:04 AM Ian Diaz DO MRI Final Re sult * CT GENERIC (12/05/2024) Anatomical Region Laterality Modality Other 12/05/2024 us [facility] Scanned SCANNING Final Resu lt * OUTSIDE LAB (SCAN ORDER) (12/05/2024) Only the most recent of3 resultswithin the time period is included. 12/05/2024 [facility] Scanned SCANNING Final Resu lt * IMAGE GENERIC (12/05/2024) Anatomical Region Laterality Modality Other 12/05/2024 Result [facility] Scanned SCANNING Final Resu lt * MAMMOGRAM GENERIC (SCAN ORDER) (05/09/2024) Anatomical Region Laterality Modality Other 05/09/2024 Result [facility] Scanned SCANNING Final Resu lt * HEPATITIS C ANTIBODY (03/29/2023 8:53 AM CDT) HEPATITIS C AB NON-REACTI VE NON-REACT AREN 03/29/2023 7:30 PM CDT [facility] Comment: ANTIBODIES TO HCV NOT DETECTED. DOES NOT EXCLUDE THE POSSIBILITY OF EXPOSURE TO HCV. 03/29/2023 8:[address] [facility] Ian Diaz DO LABORATORY Final Re sult [facility] [address] [place] [address], [id number] * BONE DENSITY GENERIC (03/15/2023) Anatomical Region Laterality Modality Other 03/15/2023 Result [facility] Scanned SCANNING Final Resu lt from Last 3 Months or Most Recently Relevant to Health Maintenance Insurance MEDICARE [employer] Care Teams Break Off Worker Relationship Specialty Start Date End Date Ian Diaz DO [address] [place] [phone] PCP - General FAMILY PRACTICE 12/05/22
--- OUTSIDE RECORDS SUMMARY | 2024-12-17 10:58 | XMS_ITS | Encounter Summary ---
Author Organization [facility] Address [address] [place] [address] Care Team Providers Care Sueding Machine Operator Name Role Phone Ko Bravo DO Primary Care Provider + Encounter Details Date Type Department Care Team (Late st Contact Info) Description 12/11/2023 MyChart Message Enc [facility] Medical Group Family & Internal Medicine [facility] [address] [place] [address] Ko Bravo DO [address] [place] [address] Steroid injection and polio vacation [...] PM CDT Legal Sex Female 3:53 PM TANK TESTER Gender Identity Female 12/06/2024 1:20 PM CDT Sexual Orientation Not on file Travel History Travel Start Travel End [place] 10/30/2024 11/26/2024 documented as of this encounter Progress Notes [...] I wait longer between the shots? I didnâ€™t know if they would inference with each others efficacy. documented in this encounter Plan of Treatment Upcoming Encounters Date Type Department Care Team (Late st Contact Info) Description 12/27/2024 10:00 AM CDT Office Visit [facility] Medical [facility] Family & Internal Medicine [address] [phone] Ko Bravo DO [address] [place] [address] 02/05/2025 8:40 AM CDT Office Visit [facility] [address] [place] [address] Ko Bravo DO [address] [place] [address] documented as of this encounter Visit Diagnoses Not on filedocumented in this encounter Care Teams Sueding Machine Operator Relationship Specialty Start Date End Date Ko Bravo DO [address] [place] [address] PCP - General FAMILY PRACTICE 12/05/22 documented as of this encounter
--- OUTSIDE RECORDS SUMMARY | 2024-12-17 10:58 | XMS_ITS | Encounter Summary ---
Author Organization [facility] Address [address] [place] [address] Care Team Providers Care Production Operations Inspector Name Role Phone Ko Bravo Miya DICKEY Primary Care Provider + Reason for Visit * Reason Comments Image (SCAN) Lab (SCAN) CT (SCAN) Encounter Details Date Type Department Care Team ([facility] Contact Info) Description 12/05/2024 Scan HEALTH INFO SRVCS Scanned, Doc [facility] Image (SCAN); Lab (SCAN); CT (SCAN) Social History Tobacco Use Types Packs/Day Years [...] PM CDT Legal Sex Female 3:53 PM BIAS CUTTER Gender Identity Female 12/06/2024 1:20 PM CDT Sexual Orientation Not on file Travel History Travel Start Travel End [place] 10/30/2024 11/26/2024 documented as of this encounter Functional Status * Over the past 2 weeks, how often have you been bothered by any of the following problems? Question Answer Date of Assessment Author Status Little interest or pleasure in doing things Not at all 12/06/2024 1:20 PM CDT Jacquelyn Nuñez MA Acti ve Feeling down, depressed, or hopeless Not at all 12/06/2024 1:20 PM CDT Jacquelyn Nuñez MA Active Patient Health Questionnaire-2 Score 0 12/06/2024 1:20 PM CDT Jacquelyn Nuñez M A Active documented as of this encounter Plan of Treatment Upcoming Encounters Date Type Department Care Team (Late st Contact Info) Description 12/27/2024 10:00 AM CDT Office Visit [facility] Family & Internal [place] [address] [place] [address] Ko Bravo P, DO [address] [place], [place] [phone] 02/05/2025 8:40 AM CDT Office Visit [facility] Family Internal [address] [phone] Ko Bravo P, DO [address] [place] [address] documented as of this encounter Procedures Procedure Name Priority Date/Time Associated Diagnosis Comments CT GENERIC 12/05/2024 OUTSIDE LAB (SCAN ORDER) 12/05/2024 OUTSIDE LAB (SCAN ORDER) 12/05/2024 OUTSIDE LAB (SCAN ORDER) 12/05/2024 IMAGE GENERIC 12/05/2024 documented in this encounter Results * OUTSIDE LAB (SCAN ORDER) (12/05/2024) 12/05/2024 [facility] Scanned SCANNING Final Resu lt * OUTSIDE LAB (SCAN ORDER) (12/05/2024) 12/05/2024 [facility] Scanned SCANNING Final Resu lt * OUTSIDE LAB (SCAN ORDER) (12/05/2024) 12/05/2024 [facility] Scanned SCANNING Final Resu lt * CT GENERIC (12/05/2024) Anatomical Region Laterality Modality Other 12/05/2024 [facility] Scanned SCANNING Final Resu lt * IMAGE GENERIC (12/05/2024) Anatomical Region Laterality Modality Other 12/05/2024 [facility] Scanned SCANNING Final Resu lt documented in this encounter Visit Diagnoses Not on filedocumented in this encounter Care Teams Production Operations Inspector Relationship Specialty Start Date End Date Ko Bravo DO [address] [place] [address] PCP - General FAMILY PRACTICE 12/05/22 documented as of this encounter
--- OUTSIDE RECORDS SUMMARY | 2024-12-17 10:58 | XMS_ITS | Referral Summary ---
Author Organization [facility] Address [address] [place] [address] Care Team Providers Care Auto Glass Worker Name Role Phone TheodoraandreiKo funes DO Primary Care Provide r Liz Cooney MD Unavailable Kameron Wynne MD Unavailable [phone] Awa Smith Unavailable [phone] Encounters Date Type Department Care Team Description 12/05/2024 2:45 PM CDT Office Visit [facility] [address] [phone] Maddy Richter NP Dizziness (Primary Dx); Lightheadedness 12/02/2024 10:15 AM CDT - 12/02/2024 11:59 PM CDT Hospital Encounter [facility] Diag Imaging [address] [place] [phone] Left hand pain Discharge Disposition: Discharge to home or self care 12/02/2024 11:15 AM CDT Office Visit [facility] Medical [facility] Hand Surgery [address] [place] [address] [place] [phone] Korey Holland MD Left hand pain (Primary Dx); Trigger finger of left thumb 10/07/2024 7:48 AM WIND FARM OPERATIONS MANAGER - 10/07/2024 11:59 PM WIND FARM OPERATIONS MANAGER Hospital Encounter [facility] Di[facility] Imaging [address] [place] [address] S/P ORIF (open reduction internal fixation) fracture Discharge Disposition: Discharge to home or self care 10/07/2024 8:00 AM WIND FARM OPERATIONS MANAGER Office Visit [facility] Medical Group Orthopedics and Sports Medicine [address] [facility] [address] [place] [address] Pastor Whatley DO S/P ORIF (open reduction [...] 05/24/2024 Assessment & Plan (06/24/2024 1:06 PM WIND FARM OPERATIONS MANAGER): Patient's surgical site appears to be healing [...] weeks. Assessment & Plan (06/17/2024 8:32 AM WIND FARM OPERATIONS MANAGER): Patient is doing well overall. X-rays were [...] plan. Assessment & Plan (06/10/2024 8:41 AM WIND FARM OPERATIONS MANAGER): Patient is doing well overall. 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 on file Not on file Not [...] cm (5' 6 ) 06/17/2024 8:01 AM WIND FARM OPERATIONS MANAGER Body Mass Index 29.21 06/17/2024 8:01 AM WIND FARM OPERATIONS MANAGER Plan of Treatment Not on file Medical Devices Implanted Type Area Mail Handler Device Identifier Shelf Expiration Date Model / Serial / Lot [employer] Plate Bone Locking T Shape 8 Hole T2 Left Ankle Foot Baby Gorilla 1.1mm Ti [id number] - [id number] Implanted:Qty: 1 on 05/24/2024 by Pastor Whatley DO at [facility] Right: Metatarsal [employer] [id number] / / Bg Lkng Screw 2x09mm Implanted:Qty: 1 on 05/24/2024 by Pastor Whatley DO at [facility] Right: Metatarsal [employer] 28 [id number] / / Bg Lkng Screw 2x14mm Implanted:Qty: 1 on 05/24/2024 by Pastor Whatley DO at [facility] Right: Metatarsal [employer] 28 [id number] / / [employer] Screw Bone Full Thread Locking Baby Gorilla 2.0x12mm Ti [id number] - [id number] Implanted:Qty: 1 on 05/24/2024 by Pastor Whatley DO at [facility] Right: Metatarsal [employer] [id number] / / [employer] Screw Bone Full Thread Locking Baby Gorilla 2.0x10mm Ti [id number] - [id number] Implanted:Qty: 1 on 05/24/2024 by Pastor Whatley DO at [facility] Right: Metatarsal [employer] [id number] / / [employer] Screw Bone Full Thread Locking Baby Gorilla 2.0x11mm Ti [id number] - [id number] Implanted:Qty: 2 on 05/24/2024 by Pastor Whatley DO at [facility] Right: Metatarsal [employer] [id number] / / Procedures Procedure Name Priority Date/Time Associated Diagnosis Comments GA INJECTION 1 TENDON SHEATH/LIGAMENT APONEUROSIS Routine 12/02/2024 11:15 AM CDT Trigger finger of left thumb XR HAND LEFT 3 OR MORE VIEWS Schedule Routine, Read Routine (OP Routine) 12/02/2024 10:18 AM CDT Left hand pain XR FOOT RIGHT 3 OR MORE VIEWS Schedule Routine, Read Routine (OP Routine) 10/07/2024 8:07 AM WIND FARM OPERATIONS MANAGER S/P ORIF (open reduction internal fixation) fracture GA ARTHROCENTESIS ASPIR&/INJ SMALL JT/BURSA W/O US Routine 10/07/2024 8:00 AM WIND FARM OPERATIONS MANAGER S/P ORIF (open reduction internal fixation) fracture SCREENING MAMMOGRAM BILATERAL W AVINASH Schedule Routine, Read Routine (OP Routine) 05/09/2024 2:15 PM CDT Screening mammogram, encounter for PAP AND HIGH RISK HPV, REFLEX TO GENOTYPING Routine 11/10/2022 10:43 AM CDT Well woman exam BONE MINERAL DENSITY 10/13/2015 COLONOSCOPY REPORT 02/16/2015 from Last 3 Months or Most Recently Relevant to Health Maintenance Results * GA INJECTION 1 TENDON SHEATH/LIGAMENT APONEUROSIS (12/02/2024 11:15 [...] 40 mg triamcinolone 40 mg/mL us Korey Holland MD IN CLINIC/BEDSIDE ORDERA BLES [...] AM - Electronically signed by Korey Holland TL T: Report ID: [id number] Reading Location: [place] [address] Procedure Note Korey Holland MD - 12/11/2024 [...] AM - Electronically signed by Korey Holland TL T: Report ID: [id number] Reading Location: [place] [address] Korey Holland MD IMG XR PROCEDURES Final Result * XR Foot Right 3+ Vw (10/07/2024 8:07 AM WIND FARM OPERATIONS MANAGER) Anatomical Region Laterality Modality Lower Extremities, Foot Right Computed Radiography 10/08/2024 10:5 7 AM WIND FARM OPERATIONS MANAGER Narrative 10/08/2024 10:58 AM WIND FARM OPERATIONS MANAGER EXAM DESCRIPTION: XR FOOT RIGHT 3 OR [...] Carolann Wong M.D. FT T: Report ID: [id number] Reading Location: [id number] Procedure Note Carolann Sutton MD - 10/08/2024 [...] Carolann Wong M.D. FT T: Report ID: [id number] Reading Location: [id number] us Pastor Whatley DO IMG XR PROCEDURES Final Result * GA ARTHROCENTESIS ASPIR&/INJ SMALL JT/BURSA W/O US (10/07/2024 8:00 AM WIND FARM OPERATIONS MANAGER) Narrative Patsor Whatley DO - 10/07/2024 8:00 AM WIND FARM OPERATIONS MANAGER Pastor Whatley DO 10/08/2024 7:38 AM Foot [...] to prior imaging studies performed at [facility] on 04/01/2021, 04/21/2022 and 04/26/2023. [...] compared to prior imaging studies performed at [facility] on 04/01/2021, 04/21/2022 and 04/26/2023. There [...] 10:43 AM CDT Narrative PATHOLOGY [facility] - 11/15/2022 2:44 PM CDT [facility] Department of Pathology [address] [place] [address], [place] [address] Final Report with Addendum Note to [...] the details. Patient Name: SUSIE DANG Address: [address] [place] [address] Gender: F : 1960 (Age: 62) Service: Location: [facility] #: [id number] Patient Type: MHE SPECIMEN Taken: 11/10/2022 Received: 11/11/2022 Accessioned:: 11/14/2022 Reported: 11/15/2022 Physician(s): Liz Cooney M.D. [facility] Diagnosis: SOURCE OF SPECIMEN SCREENING THIN [...] determined by the Surgical Pathology Department at [facility] as part of an ongoing quality assurance manager program and in compliance with federally [...] characteristics determined by the Surgical Pathology Department [facility]. It has not been cleared or approved by the U. S. Food and Drug Administration. iLz Cooney MD LAB CYTOLOGY ORDERABLES Final Result PATHOLOGY [facility] * BONE MINERAL DENSITY (10/13/2015) Anatomical [...] CHOICE PRF [place]PO [place] CHOICE PRF [place] MEDICARE [facility] Advance Directives For more information, please contact: [phone] Documents on File Type Date Recorded Patient [employer] Clerk Expl anation Power of Ovens Supervisor 05/22/2024 1:15 PM Care Teams Auto Glass Worker Relationship Specialty Start Date End Date Ko Bravo DO [address] [place] [address] PCP - General Family Medicine 04/26/23 [place] [address] [place] [address] Consulting Physician Obstetrics and Gynecology 04/26/23 Kameron Wynne MD [address] [place] [address] Referring Physician Neurology 03/07/24 Awa Smith PA [address] [address] Orthopedic Surgery 05/24/24
--- OUTSIDE RECORDS SUMMARY | 2024-12-17 10:58 | XMS_ITS ---
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) Active confirmed Vital Signs Blood pressure systolic 137 mm Hg 03/26/20 24 Blood pressure diastolic 85 mm Hg 024 Height 66 in 03/26/2024 Weight 179 lbs 03/26/2024 BMI 28.89 kg/m2 03/26/2024 Oximetry 99 % 03/26/2024 Encounters Encounter Location Date Provider Diagnosis [facility] [address] [facility] [address] [place] [address] 03/26/2024 Mitch Blackman Ocular pain, unspecified eye [...] took more than:: more than 30 minutes (45940) Tasks performed during this encounter include:: taking a history, performing the physical examnation, documenting in the EHR, This time calculation excludes any time associated with the separately identifiable medical procedures performed/described within this note (e.g. spirometry/flow volume loop, injections, skin testing, etc...) Progress Notes * Jairon HIDALGOB:1960 (63 yo F)Acc No.[id number]:03/26/2024 Progress Notes Patient: Caren TOTH Provider: Dagoberto Blackman PA-C :1960 A ge:63 Y S ex:Female Date:03/26/2024 Address:[address] [id number] Pcp:Ko Bravo Subjective: * Chief Complaints: * [...] LLRto theright forearm after bee sting in [place] that lasted for a few weeks before [...] ave you ever had a tetanus vaccine (TKke-Womg-Ot)? Y es * Medication allergy: Medication Allergy D o you feel you are allergic to any medications? N o I f antibiotic, what type: s ulfa * ROS: A LLERGY: Positive p er the HPI and history, otherwise unremarkable. S PECIAL SENSES: Positve for n one. c ataracts Y es. l oss of balance Y es. C ONSTITUTIONAL: Positive for n one. E NT: Positive p er the HPI and history, otherwise unremarkable. R ESPIRATORY: shortness of breath N o. [...] Y es. P ositive for n one. H EMATOLOGY/LYMPH: Positive for n one. M USCULOSKELETAL: joint swelling Y es. j oint pain Y es. j oint stiffness Y es. f racture Y es. c arpal tunnel Y es. P ositive for n one. P SYCHOLOGY: high stress level N o. [...] of drinks per occasion: 1 Frequency? M ed Alexander mary kay Have you ever smoked tobacco: n ever [...] T his new patient encounter took more than: more than 30 minutes (93820) T asks performed during this encounter include: [...] Management) * Billing Information: * Visit Code: 98514 Office Visit, New Pt., Level 3. Modifiers: 25 * Procedure Codes: G8427 DOC MEDS VERIFIED W/PT OR RE. * Sign off status: Completed true * Provider: Dagoberto Blackman PA-C Date: 0 03/26/2024 Generated for Ramóni jarod/Rip/eTransmitting on: 0 12/17/2024 10:57 AM CDT History and Physical Notes * HPI (History of Present Illness) Category Sub-Category Detail Notes Category Not es *Introduction HPI: Caren Hidalgo, a 63 y/o female presenting [...] the right forearm after bee sting in [place] that lasted for a few weeks before [...]
--- OUTSIDE RECORDS SUMMARY | 2024-12-17 10:58 | XMS_ITS ---
Author Organization [facility] Address [address] [place] [address] Care Team Providers Care Grades 9 Through 12 Teacher Name Role Phone Ko Bravo DO Primary Care Provide r Liz Cooney MD Unavailable Kameron Wynne MD Unavailable [phone] Awa Smith Unavailable [phone] Active Problems Problem Noted Date Diagnosed Date Trigger finger of left thumb 12/02/2024 Left hand pain 12/02/2024 S/P ORIF (open reduction internal fixation) rene raza 05/24/2024 Assessment & Plan (06/24/2024 1:06 PM LINEMARKER): Patient's surgical site appears to be healing [...] weeks. Assessment & Plan (06/17/2024 8:32 AM LINEMARKER): Patient is doing well overall. X-rays were [...] plan. Assessment & Plan (06/10/2024 8:41 AM LINEMARKER): Patient is doing well overall. X-rays were [...]
--- OUTSIDE RECORDS SUMMARY | 2024-12-17 10:58 | XMS_ITS | Clinical Summary ---
Author Organization [facility] Care Team Providers Care Laundry Agent Name Role Phone Unavailable Primary Care Provider Unavailabl e Social History Tobacco Use Types Packs/Day Years Used Date Smoking Tobacco: Never Assessed Comments Unknown Sex and Gender Information Value Date Recorded Sex Assigned at Not on file Legal Sex Female 3:48 PM INVESTMENT BANKING ASSOCIATE Gender Identity Not on file Sexual Orientation [...]
--- OUTSIDE RECORDS SUMMARY | 2024-12-17 10:58 | XMS_ITS | Clinical Summary ---
Author Organization [facility] Address [address] [place]: Epic Prelude ADT [place] KAUR [address] Care Team Providers Care Crawler Dragline Operator Name Role Phone Unavailable Primary Care [...]
--- OUTSIDE RECORDS SUMMARY | 2024-12-17 10:58 | XMS_ITS | Encounter Summary ---
Author Organization [facility] Address [address] [place] [address] Care Team Providers Care Ditching Machine Operating Engineer Name Role Phone Ko Bravo DO Primary Care Provider + Encounter Details Date Type Department Care Team (Late st Contact Info) Description 05/15/2024 MyChart Message Enc [facility] Family & Internal 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 [address] [place] [address] Ko Bravo DO [address] [place] [address] 02/05/2025 8:40 AM CDT Office Visit [facility] Family & Internal Medicine - [place] [address] [place] [address] Ko Bravo DO [address] [place] [address] documented as of this encounter Visit Diagnoses Not on filedocumented in this encounter Care Teams Ditching Machine Operating Engineer Relationship Specialty Start Date End Date Ko Bravo DO [address] [place] [address] PCP - General FAMILY PRACTICE 12/05/22 documented as of this encounter
--- OUTSIDE RECORDS SUMMARY | 2024-12-17 10:58 | XMS_ITS | Encounter Summary ---
Author Organization [facility] Address [address] [place] [address] Care Team Providers Care Fitting Room Associate Name Role Phone Ko Bravo DO Primary Care Provider + Encounter Details Date Type Department Care Team (Late st Contact Info) Description 09/12/2023 [employer] Message Enc [facility] Multispecialty Care - [address], [address] [place] [address] [employer], [facility] Provider cpt codes Social History Tobacco Use [...] PM CDT Legal Sex Female 3:53 PM CALCULATOR OPERATOR Gender Identity Female 12/06/2024 1:20 PM CDT Sexual Orientation Not on file Travel History Travel Start Travel End [place] 10/30/2024 11/26/2024 documented as of this encounter Plan of Treatment Upcoming Encounters Date Type Department Care Team (Late st Contact Info) Description 12/27/2024 10:00 AM CDT Office Visit [facility] Family & Internal Medicine [address] [address] Ko Bravo DO [address] [place] [address] 02/05/2025 8:40 AM CDT Office Visit [facility] Family & Internal Medicine - [place] [address] [place] [address] Ko Bravo DO [address] [place] [address] documented as of this encounter Visit Diagnoses Not on filedocumented in this encounter Care Teams Fitting Room Associate Relationship Specialty Start Date End Date Ko Bravo DO [address] [place] [address] PCP - General FAMILY PRACTICE 12/05/22 documented as of this encounter
== END 2024-12-17 10:40 | disposition home or self-care (01) ==
PROVIDERS: PCP Student in an Organized Health Care Education/Training Program; Visit Provider Student in an Organized Health Care Education/Training Program
DX: R42 Dizziness and giddiness (principal); R29.90 Unspecified symptoms and signs involving the nervous system
CPT/HCPCS: 70496; 70498; Q9967

== ENCOUNTER 2025-03-24 07:58 | Outpatient (CLI) | payer MEDICARE, SELFPAY ==
--- NOTE | ~2025-03-24 | DEXA_ITS ---
Bone Density Report Name: SUSIE DANG Age: 64 Sex: Female Ethnicity: White Date of : 1960 Indication: postmenopausal; screening for osteoporosis; prior fracture; cancer; hysterectomy; Referring Provider: Lawrence, Ko Study: Bone densitometry was performed. Exam Date: March 24, 2025 Accession number: [id number] Bone Density: Region BMD T-score Z-score Classification AP Spine(L1-L4) 0.937 -1.0 0.8 Normal Femoral Neck (Left) 0.710 -1.3 0.3 Osteopenia Total Hip (Left) 0.894 -0.4 0.9 Normal Femoral Neck (Right) 0.740 -1.0 0.6 Normal Total Hip (Right) 0.852 -0.7 0.5 Normal Total Hip Mean 0.873 -0.6 0.7 Normal World Health Organization criteria for BMD impression classify patients as: Normal (T-score at or above -1.0), Osteopenia (T-score between -1.0 and -2.5), or Osteoporosis (T-score at or below -2.5). 10-year Fracture Risk(1): Major Osteoporotic Fracture 14% Hip Fracture 1.1% Reported Risk Factors: [place] (), Neck BMD=0.710, BMI=29.5, previous fracture (1) FRAX(R) Version 3.08. Fracture probability calculated for an untreated patient. Fracture probability may be lower if the patient has received treatment. Previous Exams: -- Region Exam Age BMD T-score BMD Change BMD Change Date g/cm2 vs Baseline vs Previous -- AP Spine (L1-L4) 03/24/2025 64 0.937 -1.0 0.4% -2.9%* 03/15/2023 62 0.964 -0.8 3.3%* 3.3%* 08/12/2020 59 0.933 -1.0 Total Hip(Left) 03/24/2025 64 0.894 -0.4 0.5% -3.7%* 03/15/2023 62 0.928 -0.1 4.3%* 4.3%* 08/12/2020 59 0.890 -0.4 Total Hip(Right) 03/24/2025 64 0.852 -0.7 2.9% -1.9% 03/15/2023 62 0.868 -0.6 4.9%* 4.9%* 08/12/2020 59 0.828 -0.9 -- *Denotes significance at 95% confidence level, LSC for AP Spine = 0.022 g/cm2, LSC for Total Hip = 0.027 g/cm2 Clinical Information Provided by Patient: Has had a low trauma fracture Has used the following medications: Fosamax (i.e. alendronate), Vitamin D, Calcium Has the following medical conditions: Cancer, Hysterectomy Patient maximum height was 66 Menopause Age: 56 Drinks caffeinated beverages Onset of menses at age 13 Number of children 2 Impression: The patient has low bone mass, based on the Left Femoral Neck T-score. The patient has an estimated ten-year risk of hip fracture of 1.1% and an estimated ten-year risk of major fracture of 14%, based on the WHO FRAX algorithm. The patient has risk factors, including: previous fracture. The BMD for the AP Spine (L1-L4) decreased, changing by -2.9% since the last DXA exam. The BMD for the Total Hip(Left) decreased, changing by -3.7% since the last DXA exam. Discussion: BONE DENSITY IS LOW AT ONE OR MORE SKELETAL SITES. This patient's lowest T-score is low at one or more skeletal sites. It meets the World Health Organization's (WHO) criteria for ?low bone mass? (T-score between -1.0 and -2.5). The patient's 10-year risk of fracture as calculated by FRAX is less than the threshold where pharmacological therapy is recommended by the National Osteoporosis Foundation (NOF). However, all treatment decisions require clinical judgment and consideration of individual patient factors, including patient preferences, comorbidities, previous drug use, risk factors not captured in the FRAX model (e.g., frailty, falls, vitamin D deficiency, increased bone turnover, interval significant decline in bone density) and possible under or overestimation of fracture risk by FRAX. The patient should follow a healthful lifestyle (good nutrition with adequate calcium and vitamin D, and appropriate weight-bearing exercise). Follow-Up: Consider repeating this study in 2 years to reassess this patient's status, or sooner if there is some new clinical indication. Reported by: VIANCA on 03/24/2025 1:52:00 PM. Reviewed, dictated and finalized at location A.
== END 2025-03-24 07:59 | disposition home or self-care (01) ==
LOC: MICIMG 07:59
PROVIDERS: PCP Student in an Organized Health Care Education/Training Program; Visit Provider Student in an Organized Health Care Education/Training Program
DX: M85.852 Other specified disorders of bone density and structure, left thigh (principal); R73.09 Other abnormal glucose; R71.8 Other abnormality of red blood cells
CPT/HCPCS: 77080

== ENCOUNTER 2025-04-11 01:17 | Day surgery (SDC) | payer MEDICARE, SELFPAY ==
[2024-11-21 13:44] VITALS: BMI 28.6
[2025-03-31 13:10] VITALS: BMI 28.6
[2025-04-11 08:19] VITALS: BP 115/77; PULSE 85; RESP 20; TEMP 36.4; O2SAT 98; BMI 28.9
[2025-04-11] MEDS: LACTATED RINGERS 1,000 ML 150 ML IV CONT (08:22)
--- NOTE | 2025-04-11 08:41 | P.PNAN_ITS ---
Anes - Initial Pre Proc Eval Procedure: Operation Date: 04/11/25 09:30 Proposed Procedures p Screening Colonoscopy - Gulshan Grimes MD Date/Time: 04/11/25 08:41 Surgeon: Gulshan Grimes MD Pre Op Diagnosis: hx of colon polyps,screening Patient Data Age: 64 Gender: F Height: 1.68 m Weight: 81.3 kg Last Vital Signs Temp 36.4 C 04/11/25 08:19 Pulse 85 04/11/25 08:19 Resp 20 04/11/25 08:19 BP 115/77 04/11/25 08:19 Pulse Ox 98 04/11/25 08:19 O2 Del Method Room Air 04/11/25 08:19 Allergies Allergy/AdvReac Type Severity Reaction Status Date / Time No Known Allergies Allergy Verified 04/11/25 08:16 Home Medications ?Medication ?Instructions ?Recorded ?Confirmed ?Type esomeprazole magnesium 20 mg 20 mg PO DAILY 09/09/19 0 04/11/25 History capsule,delayed release (Nexium) multivitamin-minerals no.55 1 tablet PO DAILY 09/09/19 04/11/25 History (Centrum Flavor Burst Adult chewable tablet) calcium 500 mg (as 1 tablet PO BID 02/26/2012/29 History carbonate)-vitamin D3 5 mcg (200 unit) tablet (Calcium 500 + D) alendronate 70 mg tablet (Fosamax) 70 mg PO WEEKLY #14 tabs 11/18/22 03/31/25 Rx scopolamine base 1 mg over 3 days 1 patch transdermal Q3D PRN motion 01/16/23 03/31/25 Rx transdermal patch sickness #4 ea atorvastatin 10 mg tablet 10 mg PO DAILY #90 tabs 08/0 09/2904/11/25 Rx meloxicam 15 mg tablet 15 mg PO DAILY #90 tabs 08/0 09/2904/11/25 Rx meclizine 25 mg tablet 25 mg PO BID PRN dizziness # 20 tabs 12/05/24 03/31/25 Rx ondansetron HCl 4 mg tablet 4 mg PO Q6H PRN nausea and 04/10/25 Rx vomiting #4 tabs Patient hx anesthesia problems: none Family hx anesthesia problems: none Results Review: All pre-operative results and documents have been reviewed as part of the pre- operative evaluation. [facility] Past Medical History Medical History Lumbar degenerative disc disease Blurry vision Body mass index [BMI] 29.0-29.9, adult (08/06/18) Contact dermatitis and eczema Eczema Gastroesophageal reflux disease without esophagitis Insomnia, unspecified Irritable bowel syndrome without diarrhea Menopausal and female climacteric states Mixed hyperlipidemia Osteoarthrosis, unspecified whether generalized or localized, forearm Splinter of finger Stress incontinence (female) (male) Upper respiratory tract infection Viral syndrome History of skin cancer Overweight (BMI 25.0-29.9) Osteopenia Gastroesophageal reflux disease Hypercholesterolemia Arthritis Pinched nerve Surgical History Surgical History H/O wisdom tooth extraction History of knee surgery Hx of tonsillectomy History of hysterectomy Family History Family History Father Heart attack Diabetes mellitus Hypertension Heart disease Mother Diabetes mellitus Grandparent Glaucoma Carcinoma of colon Throat cancer Sibling Heart disease Hypertension Other Breast cancer Social History Social History Smoking status: Never smoker Second hand tobacco smoke exposure: No Alcohol intake: current Alcohol use details: occasionally Substance use: never Substance use type: does not use Lack of Transportation: No Lack of Food: Never True Current Housing: I Have Housing Concerned About Future Housing: No Difficulty Paying Gas/Electric Bills: No Difficulty Paying for Meds: No Currently Unemployed: No Education: Bachelor's Degree Difficulty w/ Childcare or Family Care: No Living arrangements: with family Occupation/Education: retired Spiritual care concerns: No Anes - Eval Final PreProcedure Day of Procedure 04/11/25 08:41 Patient weight: overweight Heart: regular rate and rhythm Lungs: clear to auscultation Airway: Mallampati scale class II Neurological: alert and oriented Last oral intake: >/= 8 hours ASA classification: II Emergent: no Anesthetic plan: proceed Anesthesia type and monitoring: general GIVS and standard monitoring Results Review: All pre-operative results and documents have been reviewed as part of the pre- operative evaluation. Informed Consent: The patient's anesthetic plan and its attendant risks and benefits were discussed with the patient/family/POA. Questions were solicited and answers provided to the satisfaction of the patient/family/POA.
--- NOTE | 2025-04-11 09:22 | PM.IMHP ---
H&P: HPI History of Present Illness Date/Time: 04/11/25 09:22 Chief Complaint: History of colon polyps Narrative: The patient has a history of colonic polyps, the last colonoscopy was 3 years ago. In addition, some her sisters have colonic polyps. Review of Systems Review of Systems: All systems reviewed & are unremarkable except as noted in HPI and below PMFSH Past Medical History Medical History Lumbar degenerative disc disease Blurry vision Body mass index [BMI] 29.0-29.9, adult (08/06/18) Contact dermatitis and eczema Eczema Gastroesophageal reflux disease without esophagitis Insomnia, unspecified Irritable bowel syndrome without diarrhea Menopausal and female climacteric states Mixed hyperlipidemia Osteoarthrosis, unspecified whether generalized or localized, forearm Splinter of finger Stress incontinence (female) (male) Upper respiratory tract infection Viral syndrome History of skin cancer Overweight (BMI 25.0-29.9) Osteopenia Gastroesophageal reflux disease Hypercholesterolemia Arthritis Pinched nerve Surgical History Surgical History H/O wisdom tooth extraction History of knee surgery Hx of tonsillectomy History of hysterectomy Family History Family History Father Heart attack Diabetes mellitus Hypertension Heart disease Mother Diabetes mellitus Grandparent Glaucoma Carcinoma of colon Throat cancer Sibling Heart disease Hypertension Other Breast cancer Social History Social History Smoking status: Never smoker Second hand tobacco smoke exposure: No Alcohol intake: current Alcohol use details: occasionally Substance use: never Substance use type: does not use Lack of Transportation: No Lack of Food: Never True Current Housing: I Have Housing Concerned About Future Housing: No Difficulty Paying Gas/Electric Bills: No Difficulty Paying for Meds: No Currently Unemployed: No Education: Bachelor's Degree Difficulty w/ Childcare or Family Care: No Living arrangements: with family Occupation/Education: retired Spiritual care concerns: No Meds Home Medications and Allergies Home Medications ?Medication ?Instructions ?Recorded ?Confirmed ?Type esomeprazole magnesium 20 mg 20 mg PO DAILY 09/09/19 04/11/25 History capsule,delayed release (Nexium) multivitamin-minerals no.55 1 tablet PO DAILY 09/09/19 04/11/25 History (Centrum Flavor Burst Adult chewable tablet) calcium 500 mg (as 1 tablet PO BID 02/26/20 04/11/25 History carbonate)-vitamin D3 5 mcg (200 unit) tablet (Calcium 500 + D) alendronate 70 mg tablet (Fosamax) 70 mg PO WEEKLY #14 tabs 11/18/22 03/31/25 Rx scopolamine base 1 mg over 3 days 1 patch transdermal Q3D PRN motion 01/16/23 03/31/25 Rx transdermal patch sickness #4 ea atorvastatin 10 mg tablet 10 mg PO DAILY #90 tabs 03/08/23 04/11/25 Rx meloxicam 15 mg tablet 15 mg PO DAILY #90 tabs 03/08/23 04/11/25 Rx meclizine 25 mg tablet 25 mg PO BID PRN dizziness #20 tabs 12/05/24 03/31/25 Rx ondansetron HCl 4 mg tablet 4 mg PO Q6H PRN nausea and 04/10/25 Rx vomiting #4 tabs Allergies Allergy/AdvReac Type Severity Reaction Status Date / Time No Known Allergies Allergy Verified 04/11/25 08:16 Vital Signs Vital Signs - 24 hr 04/11/25 08:19 Temperature 97.6 F Pulse Rate 85 Respiratory Rate 20 Blood Pressure 115/77 Pulse Oximetry 98 Oxygen Delivery Room Air Exam Const: General: cooperative and healthy appearing Resp: Effort & Inspection: normal respiratory effort and able to speak in complete sentences Auscultation: clear to auscultation bilaterally Cardio: Rate: regular rate Rhythm: regular rhythm GI: Inspection: normal to inspection GI Palp: No No hepatosplenomegaly present Auscultation: normal bowel sounds Rectal Exam: deferred Skin: General skin exam: normal color Psych: Appearance: grossly normal Mental Status: mental status grossly normal Assessment and Plan Assessment and plan (1) History of colon polyps: Code(s): Z86.010 - Personal history of colon polyps Status: Acute Assessment and Plan: The patient is deemed a good candidate for the procedure. Consent signed. Will proceed.
[2025-04-11] MEDS: SIMETHICONE ORAL SUSPENSION 20 MG/0.3 ML 30 ML BOTTLE 0.6 ML IRRIGATION (09:34)
--- NOTE | 2025-04-11 09:43 | S_PTH ---
PATIENT: Caren Hidalgo LOC: [facility]#:[id number] AGE/SX: 64/F ROOM: RE04/11/[address]: Gulshan Grimes MD : 1960 BED: DIS: 04/11/2025 SPEC #: [id number] RECD: 04/11/25 11:32 STATUS: KAREEM FLORES #: [id number] CLIFF: 04/11/25 09:[address]: Gulshan Grimes DEPT: [facility] [place] Surgical RECD BY: Mehnaz Gonzalez ENTERED: 04/11/25 11:33 SP TYPE: Surgical OTHR DR: Ko Bravo, DO Tissues: A - Colon Polypectomy B - Colon Polypectomy C - Colon Polypectomy Procedures: Hematoxylin and Eosin Stain Gross and Microscopic Level 4
[2025-04-11 09:47] VITALS: BP 111/65; PULSE 69; RESP 18; O2SAT 97
[2025-04-11 09:57] VITALS: BP 121/70; PULSE 73; RESP 21; O2SAT 98
[2025-04-11 10:07] VITALS: BP 123/70; PULSE 63; RESP 20; O2SAT 100
== END 2025-04-11 10:18 | disposition home or self-care (01) ==
PROVIDERS: PCP Student in an Organized Health Care Education/Training Program; Referring Provider Internal Medicine Gastroenterology; Visit Provider Internal Medicine Gastroenterology
PROC: 0DJD8ZZ Inspection of Lower Intestinal Tract, Via Natural or Artificial Opening Endoscopic (ICD-10-PCS; CPT 45378; principal; 2025-04-11 09:30)
DX: Z12.11 Encounter for screening for malignant neoplasm of colon (principal); K63.5 Polyp of colon
CPT/HCPCS: 45385; 88305; J2003; J2704; J7120